=== PATIENT | female | born 1945 | race Two or more races ===

== ENCOUNTER → 2020-11-02 10:54 | Outpatient (BNVA) | payer MEDICARE, OTHER, SELFPAY | PROVIDERS: PCP Nurse Practitioner Family; Referring Provider Nurse Practitioner Family; Visit Provider Surgery | DX: R10.9 Unspecified abdominal pain (principal) | CPT/HCPCS: 99202 ==

== ENCOUNTER → 2021-04-11 10:18 | Outpatient (BNVA) | payer MEDICARE, OTHER, SELFPAY | PROVIDERS: PCP Nurse Practitioner Family; Visit Provider Internal Medicine | DX: M96.1 Postlaminectomy syndrome, not elsewhere classified (principal) | CPT/HCPCS: 99202 ==

== ENCOUNTER 2022-10-13 09:00 | Outpatient (AMB) | payer MEDICARE, OTHER, SELFPAY ==
--- NOTE | 2022-10-13 09:29 | HO.SPINEOV ---
Intake Intake Visit Reasons: moderate spinal canal stenosis Intake Note: Ms. Sutherlnad is here today c/o neck pain and low back pain. MRI done @ [facility]. Wine And Spirits Clerk Required: No Allergies adhesive Allergy (Mild, Verified 04/11/21 10:37) Itching, hives cat dander Allergy (Mild, Verified 04/11/21 10:37) Anaphylaxis house dust mite Allergy (Mild, Verified 04/11/21 10:37) Anaphylaxis mold Allergy (Mild, Verified 04/11/21 10:37) Anaphylaxis pork derived (porcine) Allergy (Mild, Verified 04/11/21 10:37) Unknown gluten Adverse Reaction (Mild, Verified 04/11/21 10:37) Gastrointestinal Upset lactose Adverse Reaction (Mild, Verified 04/11/21 10:37) Gastrointestinal Upset Assessment & Plan Assessment & Plan (1) Neck pain: Code(s): M54.2 - Cervicalgia Plan Dear Dr Balderas, Thank you for referring Mrs Sutherland to our office today. She is 77-year-old woman who had a history of a previous cervical fusion at C5-6, previous lumbar fusion done at [facility] by who has had ongoing issues with neck pain and back pain since the surgeries. She thinks the surgeries were 5 or 6 years ago. She has been undergoing physical therapy. She has a history of diffuse arthritic conditions and often has flare ups. She does heating pads, high water bottles, etc.. She is here today to be evaluated for ongoing neck pain and back pain. She does not report any myelopathic symptoms. Her primary issues are pain related. PMH: History of previous ulcerative colitis, she had some precancerous cells so ended up having a colectomy with a J-pouch, history of diet-controlled diabetes, cataract surgery, Lyme disease, ex pristine bar disease, fibromyalgia, carpal tunnel, rotator cuff, right knee replacement Social hx: She does not smoke Medications: Albuterol, loratadine, lysine, vitamin D3, multivitamin, Vyvanse, Synthroid, vitamin-C Allergies: Aspirin, Advil, anything with steroids, glued in her lack does Physical exam: Wake alert oriented no acute distress, strength slightly reduced in the right arm diffusely but I am not sure if this is effort related, reflexes intact, gait is normal, no Bruno's Imaging review: Nothing to review today other than some old MRIs and CT scans but nothing within the last 3 years Impression: 77-year-old female with previous history of ACDF, previous lumbar fusion, presents today with neck pain and back pain. I have no imaging to review, there some outdated films but nothing recent. She had a report suggesting the could be adjacent segment disease on recent MRI but she did not bring the disc. There is no lumbar imaging to review. I told the patient we would get plain films on her today, that she should go get the more recent imaging of her cervical spine and I would order a new lumbar MRI spine and we will see her back in a month. Thank you for allowing us to care for your patient. The total time spent with this visit with this patient was 45 minutes reviewing history, physical exam, old cervical spine imaging review, and implementation of treatment plan or further diagnostic testing Boston Dumont MD,PhD [facility] Orders: Orders XR cervical spine 4V Today M54.2 - Cervicalgia XR lumbar spine 4V min Today M54.2 - Cervicalgia MR lumbar spine wo/w con Today M96.1 - Postlaminectomy syndrome, not elsewhere classified Coding Level of Care Code New Pt Level 4 (89779) Diagnoses Neck pain M54.2
== END 2022-10-13 09:41 | disposition home or self-care (01) ==
PROVIDERS: PCP Nurse Practitioner Family; Referring Provider Psychiatry & Neurology Neurology; Visit Provider Physician Assistant
DX: M54.2 Cervicalgia (principal)
CPT/HCPCS: 99204

== ENCOUNTER 2022-10-13 09:00 | Outpatient (REF) | payer MEDICARE, OTHER, SELFPAY ==
--- NOTE | ~2022-10-13 | XR_ITS ---
EXAMINATION: XR LUMBOSACRAL SPINE WITH OBLIQUES CLINICAL INFORMATION: Cervicalgia. COMPARISON: None available. TECHNIQUE: Four views of the lumbar spine including flexion and extension. FINDINGS: There has been posterior fixation at L4-L5 with an interbody device. Degenerative changes are noted at most levels, most marked at L2-L3. There is grade 1 anterolisthesis of L4 upon L5 which appears stable with flexion and extension. No acute fractures are seen. Vertebral body heights are well maintained. Vascular calcifications are present. XR/XR lumbar spine 4V min IMPRESSION: Postoperative changes L4-L5 with stable grade 1 anterolisthesis of L4 upon L5. Degenerative changes elsewhere.
--- NOTE | ~2022-10-13 | XR_ITS ---
EXAMINATION: XR CERVICAL SPINE CLINICAL INFORMATION: Cervicalgia. COMPARISON: None available. TECHNIQUE: Four views of the cervical spine including neutral, flexion and extension. The patient did not remove 4 earrings which overlie C1 and C2 degrading the imaging. FINDINGS: ACDF hardware is present at C5-C6. Degenerative changes are present at C6-C7 with disc space narrowing, endplate sclerosis and osteophyte formation. There is mild anterolisthesis of C3 upon C4 with about 2.5 mm of forward slippage of C3 upon C4 which reduces with extension. No fractures or bony destructive lesions are seen. Incidental note made of an accessory azygos fissure. The lung apices appear normal. No prevertebral soft tissue swelling or fractures are seen. XR/XR cervical spine 4V IMPRESSION: 1. Degenerative changes at C6-C7. 2. Mild anterolisthesis of C3 upon C4 which reduces with extension. 3. ACDF at C5-C6.
== END 2022-10-13 09:01 | disposition home or self-care (01) ==
LOC: HO.HOSX 09:00
PROVIDERS: PCP Nurse Practitioner Family; Visit Provider Physician Assistant
DX: M54.2 Cervicalgia (principal); M96.1 Postlaminectomy syndrome, not elsewhere classified
CPT/HCPCS: 72050; 72110; 99202

== ENCOUNTER 2022-11-21 11:46 | Outpatient (AMB) | payer MEDICARE, OTHER, SELFPAY ==
--- NOTE | 2022-11-21 12:47 | HO.SPINEOV ---
Intake Intake Visit Reasons: 1 month f/u Intake Note: Ms. Sutherland is here today for her 1mo f/u and discuss MRI results. Customer Care Representative Required: No Allergies adhesive Allergy (Mild, Verified 04/11/21 10:37) Itching, hives cat dander Allergy (Mild, Verified 04/11/21 10:37) Anaphylaxis house dust mite Allergy (Mild, Verified 04/11/21 10:37) Anaphylaxis mold Allergy (Mild, Verified 04/11/21 10:37) Anaphylaxis pork derived (porcine) Allergy (Mild, Verified 04/11/21 10:37) Unknown gluten Adverse Reaction (Mild, Verified 04/11/21 10:37) Gastrointestinal Upset lactose Adverse Reaction (Mild, Verified 04/11/21 10:37) Gastrointestinal Upset Assessment & Plan Assessment & Plan (1) Neck pain: Code(s): M54.2 - Cervicalgia Plan I saw Mrs Sutherland follow-up today. I previously saw her in the setting of previous fusion of her lumbar in her cervical spine with issues with pain in her neck and some numbness in her right arm as well as difficulty walking with cramping going down both legs with standing and walking. She had previous fusion at L4-5. I sent her for lumbar MRI. Unfortunately she does not have the disc for me to review. She did bring cervical spine MRI from August 2022 [facility]. 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 I think this would explain some of the intermittent numbness that goes down her right arm. She does not have any hand weakness and no myelopathic features on her exam. I think she is dealing with an early radiculopathy but it is not at the point of requiring surgery yet. With regard to her lumbar MRI, she is going to get a copy of the disc and bring it to our office. She has a history of previous L4-5 fusion and the report suggests that there is severe stenosis at L3-4 and possibly L2-3. Once I have a chance to look at it with Dr. Dumont, I will call her and discuss surgical options. Total amount of time spent in this visit was 20 minutes in discussion of symptoms, cervical spine imaging results and subsequent plan of care Boston Dumont MD,PhD [facility] Coding Level of Care Code Est Pt Level 3 (41228) Diagnoses Neck pain M54.2
== END 2022-11-21 14:27 | disposition home or self-care (01) ==
PROVIDERS: PCP Nurse Practitioner Family; Visit Provider Physician Assistant
DX: M54.2 Cervicalgia (principal)
CPT/HCPCS: 99213

== ENCOUNTER → 2022-11-21 11:46 | Outpatient (BNVA) | payer MEDICARE, OTHER, SELFPAY | PROVIDERS: PCP Nurse Practitioner Family; Visit Provider Physician Assistant | DX: M54.2 Cervicalgia (principal) | CPT/HCPCS: 99212 ==

== ENCOUNTER → 2024-09-12 10:31 | Outpatient (BNVA) | payer MEDICARE, OTHER, SELFPAY | PROVIDERS: PCP Nurse Practitioner Family; Visit Provider Physician Assistant ==

== ENCOUNTER 2024-09-26 09:09 | Outpatient (REF) | payer MEDICARE, OTHER, SELFPAY ==
--- NOTE | ~2024-09-26 | XR_ITS ---
CLINICAL HISTORY: M54.2 - Cervicalgia --- Additional Notes or Special Instructions: a p, lateral with flex ext views Cervical spine two views plus flexion-extension Comparison: 10/13/2022 Findings: No acute fracture or dislocation. Moderate degenerative change. C5-6 anterior fusion hardware. Very limited range of motion on flexion extension. Alignment is normal on neutral lateral film. Multilevel slight anterolisthesis on flexion. This is unchanged from previous study. Alignment is normal on extension as well. Impression: Multilevel slight anterolisthesis with flexion Findings are unchanged from prior study Degenerative change without acute abnormality This document has been electronically signed by: Ronni Chirinos MD on 09/27/2024 20:10:27
== END 2024-09-26 09:10 | disposition home or self-care (01) ==
LOC: HO.HOSX 09:09
PROVIDERS: PCP Nurse Practitioner Family; Visit Provider Physician Assistant
DX: M54.2 Cervicalgia (principal)
CPT/HCPCS: 72050; 99212

== ENCOUNTER 2024-09-26 09:09 | Outpatient (AMB) | payer MEDICARE, OTHER, SELFPAY ==
--- OUTSIDE RECORDS SUMMARY | 2024-09-26 09:29 | XMS_ITS | Clinical Summary ---
Author Organization [facility] Address [address] [id number] Care Team Providers Care Sand System Operator Name Role Phone Gregoria Landis MD Primary Care Provider [phone] Allergies Active Allergy Reactions Criticality Noted Date Comments Adhesive Rash 02/13/2017 acrylilated Aspirin GI bleeding,Unknown 03/21/2011 Bee Pollen Anaphylaxis High 10/13/2019 All stinging insects Cortisone Blood pressure, high 01/03/2024 Dog Dander Rash 01/03/2024 Gabapentin Diarrhea,Swelling High 11/02/2017 Gluten Protein Bleeding,Diarrhea High 01/03/2024 Hydrocortisone Blood pressure, high High 01/22/2020 Elevated blood pressure/ heart Ibuprofen GI bleeding 01/03/2024 Lactose Anaphylaxis,GI bleeding,Diarrhea High 01/03/2024 Nsaids (Non-Steroidal Anti-Inflammatory Drug) GI bleeding 02/13/2017 Pork Derived (Porcine) Blood pressure, high 01/2022 Medications Synthroid 112 mcg tablet Synthroid Only - No Generic Active Vyvanse 30 mg capsule SMARTSI Capsule(s) By Mouth Twice Daily Active cholecalciferol (VITAMIN D3) 2,000 unit capsule Vitamin D3 2000 UNIT Oral Capsule Refills: 0 Active Active LYSINE ORAL Take by mouth. Act brigid Active Problems Problem Noted Date Diagnosed Date Small bowel obstruction 01/03/2024 Pruritus ani 10/31/2012 Non-healing surgical wound 06/26/2012 Ulcerative colitis 01/18/2012 Social History Tobacco Use Types Packs/Day Years Used Date Smoking Tobacco: Former Passive Smoke Exposure: Never Smokeless Tobacco: Never Tobacco Cessation:Counseling Given: Not Answered Comments:: Comments Unknown Sex and Gender Information Value Date Recorded Sex Assigned at Not on file Legal Sex Female 6:29 AM EDT Gender Identity Not on file Sexual Orientation Not on file Last Filed Vital Signs Vital Sign Reading Time Taken Comments Blood Pressure 145/86 01/03/2024 9:45 AM EDT Pulse 76 01/03/2024 9:45 AM EDT Temperature 36.1 C (97 F) 01/03/2024 9:45 AM EDT Respiratory Rate 17 01/03/2024 9:45 AM EDT Oxygen Saturation 98% 01/03/2024 9:45 AM EDT Inhaled Oxygen Concentration - - Weight 77.6 kg (171 lb) 01/03/2024 9:45 AM EDT Height 175.3 cm (5' 9 ) 01/03/2024 9:45 AM EDT Body Mass Index 25.25 01/03/2024 9:45 AM EDT Plan of Treatment Health Maintenance Due Date Last Done Comments Hepatitis C Screening [address] Lung Cancer Screening (Baseline) 1997 Osteoporosis Screening 1997 Pneumococcal Vaccine: 50+ Years (3 of 3 - PCV20 or PCV21) 10/24/2019 10/23/2014, 04/02/2006, 02/09/2000 COVID-19 Vaccine ( season) 2023 04/18/2023, 01/18/2022, 11/18/2021, Additional history exists Alcohol/Substance Use Screening 04/02/2024 Depression Screening and Follow-Up 04/02/2024 Health Care Proxy Review 04/02/2024 Social Drivers of Health Annual Screening 04/02/2024 Influenza Vaccine (Season Ended) 2024 12/18/2022, 12/23/2021, 12/02/2020, Additional history exists DTaP,Tdap,and Td Vaccines (2 - Td or Tdap) 01/27/2026 01/28/2016, 03/25/2013 Zoster Vaccines Completed 09/02/2018, 06/01, 06/06/2007 RSV Vaccine (60+ years old and patients) Completed 01/29/2023 Hepatitis B Vaccines Aged Out No long er eligible based on patient's age to complete this topic Additional Health Concerns Infection Onset Date Last Indicated Multidrug resistant organisms ESBL 12/31/2016 12/31/2016 Insurance [facility] MEDICARE Care Teams Sand System Operator Relationship Specialty Start Date End Date Gregoria Landis MD [address] [place] [address] [id number] PCP - General 11/09/23
--- NOTE | 2024-09-26 09:32 | HO.SPINEOV ---
Intake Visit Reasons: neck pain/ right arm numbness Intake Note: Ms. Sutherland is here today c/o neck Pain and Right arm numbness she also is concerned about MRI. Detail Technician Required: No Allergies adhesive Allergy (Mild, Verified 09/26/24 09:33) Itching, hives cat dander Allergy (Mild, Verified 09/26/24 09:33) Anaphylaxis house dust mite Allergy (Mild, Verified 09/26/24 09:33) Anaphylaxis mold Allergy (Mild, Verified 09/26/24 09:33) Anaphylaxis pork derived (porcine) Allergy (Mild, Verified 09/26/24 09:33) Unknown gluten Adverse Reaction (Mild, Verified 09/26/24 09:33) Gastrointestinal Upset lactose Adverse Reaction (Mild, Verified 09/26/24 09:33) Gastrointestinal Upset Assessment & Plan Assessment & Plan (1) Neck pain: Code(s): M54.2 - Cervicalgia Category: Medical Plan Mrs Sutherland is here in follow-up today. We saw this patient few years back about her lumbar spine issues and some tingling she was having going down her right arm. She is following up today because she has had increased numbness of her whole arm since the time we last saw her. She has noticed gait imbalance as well as feelings of numbness shooting down her right arm when she flexes her neck down. She has also been hearing noises in her neck when she extends her head backwards. She had a previous ACDF by Dr. Martínez at C5-6. She had a known stenosis at C6-7, but was not all that symptomatic at the time. We were just following her. She comes in today because of these worsening symptoms and to be evaluated. Her exam shows that she is unsteady with tandem gait walking, she does have weakness of her right hand. I would rate this as 4/5. She describes some of this is being chronic secondary to an old wrist injury. Reflexes are 2+ and symmetric, no Bruno's sign, no clonus. She does have positive Lhermitte sign. It looks like her incision is well healed on the right side of her neck. I reviewed her cervical MRI which was done at 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 I would rate the stenosis at C4-5 as moderate, but severe at C6-7. There is no cord signal change seen. The report also suggests some kind of thickening of her peritonsillar region, recommend a follow up with an ENT. I sat down with the patient and reviewed her films, based on our last conversation a few years ago to now the numbness in her arm is getting worse and she does have a component of right hand weakness as well as gait instability. She does not have hyperreflexia, but she does have history of borderline diabetes so this could be affecting us knowing exactly what her reflexes might be. There is enough compression at C6-[address] Dumont will recommend anterior cervical fusion given the progression of symptoms, physical exam finding and the severity of the stenosis. We also need to consider the possibility that C4-5 may need to be done at some point but it does not seem to be symptomatic right now. I explained all this to the patient and will follow up with her once I have a chance to review everything with Dr. Dumont. I will obtain flexion-extension x-rays to evaluate the integrity of the C4-5 area. I told her to follow up with her PCP regarding the peritonsillar thickening and the recommendation for an ENT follow-up. Total amount of time spent in this visit was 20 minutes in discussion of symptoms, cervical MRI imaging results and subsequent plan of care Boston Dumont MD,PhD [facility] Orders: Orders XR cervical spine 4V Today M54.2 - Cervicalgia Coding Level of Care Code Est Pt Level 3 (74646) Diagnoses Neck pain M54.2
== END 2024-09-26 11:43 | disposition home or self-care (01) ==
LOC: HO.HNS 09:10
PROVIDERS: PCP Nurse Practitioner Family; Visit Provider Physician Assistant
DX: M54.2 Cervicalgia (principal)
CPT/HCPCS: 99213

== ENCOUNTER → 2024-09-26 10:27 | Outpatient (BNV) | payer MEDICARE, OTHER, SELFPAY | PROVIDERS: PCP Nurse Practitioner Family; Visit Provider Radiology Diagnostic Radiology | DX: M43.12 Spondylolisthesis, cervical region (principal) | CPT/HCPCS: 72050 ==

== ENCOUNTER 2024-11-10 08:48 | Outpatient (AMB) | payer MEDICARE, OTHER, SELFPAY ==
--- OUTSIDE RECORDS SUMMARY | 2024-11-10 09:11 | XMS_ITS | Encounter Summary ---
Author Organization [facility] Address [address] [place] [phone] Phone Care Team Providers Care Ice Cream Van Vendor Name Role Phone Marcos Johnson MD Primary Care Prov ider Lakshmi Louis DRYING ROOM ATTENDANT Primary Care Provider [phone] Lakshmi Louis DRYING ROOM ATTENDANT Primary Care Provider [phone] Unknown, Unknown Primary Care Provider Gregoria Sherman DO Primary Care Provider Encounter Details Date Type Department Care Team (Latest Contact Info) Description 04/11/2018 Transcribe Orders [facility] Laboratory [address] [address] Neyda Bryan, PA [address] [place] [address] Acute gastric ulcer without hemorrhage or perforation (Primary Dx) Social History Tobacco Use Types Packs/Day Years Used Date Smoking Tobacco: Former Cigarettes 1 970 - 1985 Smokeless Tobacco: Never Alcohol Use Standard Drinks/Week Comments No 0 (1 standard drink = 0.6 oz pur e alcohol) Comments Unknown Sex and Gender Information Value Date Recorded Sex Assigned at Female 03/29/2019 7:07 PM EST Legal Sex Female 7:00 PM EST Gender Identity Female 03/29/2019 7:07 PM EST Sexual Orientation Straight 03/29/2019 7: 07 PM EST documented as of this encounter Plan of Treatment Not on file documented as of this encounter Results * C-Reactive Protein (04/11/2018 10:03 AM EST) C REACTIVE PROTEIN 3.0 0.0 - 4.0 mg/L [facility] Blood 04/11/2018 10:0 3 AM EST 04/11/2018 10:08 AM EST Neyda CONN LAB BLOOD ORDERABLES Final Result Performing Organization Address [facility] Co de Phone Number [address] [address] * (ABNORMAL) CBC (04/11/2018 10:03 AM EST) WBC 6.36 3.40 - 11.20 K/uL [facility] RBC 5.27(H) 3.80 - 4.80 M/uL [facility] HGB 14.9 12.0 - 15.0 g/dL [facility] HCT 46.2(H) 36.0 - 46.0 % [facility] PLT 277 130 - 400 K/uL [facility] MCV 87.7 79.0 - 98.0 fL [facility] MCH 28.3 27.0 - 34.8 pg [facility] MCHC 32.3 31.5 - 36.0 g/dL [facility] RDW 14.5 10.8 - 14.6 % [facility] MPV 10.9 9.4 - 12.4 fl [facility] NRBC 0.00 0.00 /100 WBCs [facility] ABSOLUTE NRBC 0.00 0.00 K/uL [facility] Blood 04/11/2018 10:0 3 AM EST 04/11/2018 10:08 AM EST Neyda CONN LAB BLOOD ORDERABLES Final Result Performing Organization Address City/[facility]/ZIP Co de Phone Number [address] [phone] documented in this encounter Visit Diagnoses Diagnosis Acute gastric ulcer without hemorrhage or perforation- Primary Acute gastric ulcer without mention of hemorrhage, perforation, or obstruction documented in this encounter Additional Health Concerns Infection Onset Date Last Indicated Resolved Time CoV-Risk 01/28/2020 01/29/2020 02/11/2020 1:24 AM EST documented as of this encounter Care Teams Ice Cream Van Vendor Relationship Specialty Start Date End Date Marcos Johnson MD PCP - General 01/24/17 Lakshmi Louis DRYING ROOM ATTENDANT PCP - General Family Medicine 02/18/19 11/20/21 Lakshmi Louis DRYING ROOM ATTENDANT PCP - General Family Medicine 11/21/21 08/15/23 Unknown, Dylan, PCP - General 08/16/23 08/22/23 Gregoria Landis DO [address] [place] [id number] PCP - General Family Medicine 08/23/23 documented as of this encounter Additional Source Comments The information contained in this document represents components of the legal health record. It is not the complete legal health record.[facility]
--- OUTSIDE RECORDS SUMMARY | 2024-11-10 09:11 | XMS_ITS | Clinical Summary ---
Author Organization [facility] Address [address] [id number] Care Team Providers Care Chemistry Lab Instructor Name Role Phone Gregoria Landis MD Primary Care Provider Allergies Active Allergy Reactions Criticality Noted Date [...] of Health Annual Screening 04/02/2024 Influenza Vaccine (#1) 2024 3, 12/23/2021, 12/02/2020, Additional history exists DTaP,Tdap,and Td [...] Insurance [facility] MEDICARE Care Teams Chemistry Lab Instructor Relationship Specialty Start Date End Date Gregoria Landis MD [address] [place] [address] [phone] PCP - General 11/09/23
--- NOTE | 2024-11-10 09:34 | A.SPINEOV_ITS ---
Intake Visit Reasons: Re evaluate/back pain Intake Note: Ms. Sutherland is here today to be reassesed for necessity of new MRI Certified Real Estate Appraiser Required: No Allergies adhesive Allergy (Mild, Verified 09/26/24 09:33) Itching, hives cat dander Allergy (Mild, Verified 09/26/24 09:33) Anaphylaxis house dust mite Allergy (Mild, Verified 09/26/24 09:33) Anaphylaxis mold Allergy (Mild, Verified 09/26/24 09:33) Anaphylaxis pork derived (porcine) Allergy (Mild, Verified 09/26/24 09:33) Unknown gluten Adverse Reaction (Mild, Verified 09/26/24 09:33) Gastrointestinal Upset lactose Adverse Reaction (Mild, Verified 09/26/24 09:33) Gastrointestinal Upset Assessment & Plan Assessment & Plan (1) Post laminectomy syndrome: Comment: Both cervical and lumbar Code(s): M96.1 - Postlaminectomy syndrome, not elsewhere classified Category: Medical (2) Neck pain: Code(s): M54.2 - Cervicalgia Category: Medical Plan Mrs Sutherland is here in follow-up. She is a patient known to us for follow up of spinal issues including lumbar and cervical. She had previous C5-6 anterior cervical fusion with Dr. Martínez, as well as L4-[address] Martínez. She has had complaints of chronic low back pain that seemed more recently it has been flaring up. They bother her with standing and walking. More recently after a trip to the beach she has had pain radiating down her left leg into her posterolateral thigh in her anterior tibial region. She has also had issues with her left SI joint which has been treated with physical therapy, similarly with her back issues she has done copious amounts of physical therapy that ultimately just made things worse. This is in addition to the neck pain in the tingling down her right arm which we have evaluated her for before. That is seems to have abated a bit in his really not all as much bothersome as it was. Right now her back is the focus of her issues. She has taken anti- inflammatories and Tylenol without much help. She does not want to go into the realm of pain medications. She has had no recent injections, although she was in [place] many years ago and had injections which did help from time to time. On exam she is able to stand up and get out of chair on her own, independently walk down the hallway, strength reveals some mild weakness of her right hand but diffusely depressed reflexes, no Bruno's sign or clonus. The last time we saw her regarding her cervical spine she had what was listed as severe stenosis by the radiologist, but no cord signal change. I have no lumbar imaging to review and since that is the focus of her issue at this time I would like to get a lumbar MRI and evaluate. I can see her back after the MRIs completed. Total amount of time spent in this visit was 20 minutes in discussion of symptoms, previous cervical MRI review and ordering lumbar imaging and subsequent plan of care Boston Dumont MD,PhD [facility] Orders: Orders MR lumbar spine wo/w con Today M96.1 - Postlaminectomy syndrome, not elsewhere classified Coding Level of Care Code Est Pt Level 3 (35921) Diagnoses Post laminectomy syndrome M96.1 Neck pain M54.2
== END 2024-11-10 10:10 | disposition home or self-care (01) ==
LOC: HO.HNS 08:49
PROVIDERS: PCP Nurse Practitioner Family; Visit Provider Physician Assistant
DX: M96.1 Postlaminectomy syndrome, not elsewhere classified (principal); M54.2 Cervicalgia
CPT/HCPCS: 99213

== ENCOUNTER → 2024-11-10 08:48 | Outpatient (BNVA) | payer MEDICARE, OTHER, SELFPAY | PROVIDERS: PCP Nurse Practitioner Family; Visit Provider Physician Assistant | DX: M96.1 Postlaminectomy syndrome, not elsewhere classified (principal); M54.2 Cervicalgia | CPT/HCPCS: 99212 ==

== ENCOUNTER → 2024-11-19 08:49 | Outpatient (BNV) | payer MEDICARE, OTHER, SELFPAY | PROVIDERS: PCP Family Medicine; Visit Provider Radiology Diagnostic Radiology | DX: M48.062 Spinal stenosis, lumbar region with neurogenic claudication (principal) | CPT/HCPCS: 72158 ==

== ENCOUNTER 2024-11-19 08:50 | Outpatient (REF) | payer MEDICARE, OTHER, SELFPAY ==
--- NOTE | ~2024-11-19 | MR_ITS ---
EXAMINATION: MR LUMBAR SPINE WITHOUT AND WITH CONTRAST CLINICAL INFORMATION: Postoperative changes at L4-5 and grade 1 anterolisthesis. Post laminectomy syndrome. COMPARISON: Correlated to x-ray dated October 13, 2022. No recent exam. TECHNIQUE: MRI of the lumbar spine was obtained using routine sequences with and without contrast. Intravenous contrast: Gadolinium based (Gadavist) 7.5 mL. No reported immediate complications. FINDINGS: There is no sagittal T1 postcontrast fat-sat sequence. Last rib-bearing vertebra labeled T12. Paramagnetic field distortion secondary to metallic hardware in the posterior elements of L4-5 and the transpedicular screws, L4-5 bilaterally. There is mild hyperintense bone marrow STIR signal at L1 and superior endplate of L2. There is an intrinsic hyperintense T1 bone lesion at L1 vertebra with the likely trabeculation, intraosseous hemangioma. Multilevel marginal osteophyte formation and disc desiccation and endplate irregularities throughout the included axial skeleton. There is a grade 1 anterolisthesis L4-5. There is a grade 1 retrolisthesis L2-3 and likely L1-2 level. There is a rotoscoliosis of the thoracolumbar spine with a levoconvex curvature apex at L3-4 and a dextroconvex curvature apex at L1-2. There is multilevel Modic type II endplate changes T11-12, T12-L1. The conus medullaris and at superior endplate of L2 with normal signal. 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 The neural elements of the cauda equina demonstrated no grouping or clumping. There is no empty thecal sac sign. There is no gross abnormal enhancement within the neural elements of the thecal sac. There is no gross abnormal enhancement within the prevertebral compartment. T11-12: No herniated disc. No gross neuroforamina stenosis. T12-L1: No herniated disc. No gross neuroforamina stenosis. L1-2: Broad-based disc bulging. Facet joint and ligamentum flavum hypertrophy resulting in CSF effacement of the thecal sac central spinal canal stenosis likely compressing the neural elements. There is left neuroforamina stenosis compressing the left L1 nerve root. L2-3: Broad-based disc bulging. Facet joint and ligamentum flavum hypertrophy resulting in CSF effacement of the thecal sac central spinal canal stenosis likely compressing the neural elements. Bilateral neuroforamina stenosis on a degenerative basis encroaching the exiting nerve roots. L3-4: Broad-based disc bulging. Facet joint and ligamentum flavum hypertrophy resulting in CSF effacement of the thecal sac compressing the neural elements of the thecal sac and the exiting nerve roots pronounced on the right side. L4-5: Right hemilaminectomy. Status post intervertebral disc spacer placement. No central spinal canal stenosis. There is bilateral neuroforamina stenosis right greater than left likely encroaching the L4 exiting nerve roots. L5-S1: Broad-based disc bulging. Facet joint and ligamentum flavum hypertrophy. Reduced AP diameter of the thecal sac. Bilateral neuroforamina narrowing likely encroaching the exiting nerve roots of S1 and L5. There are bilateral, multifocal different sizes complex likely hemorrhagic component exophytic cystic lesions in both kidneys, the largest in the right kidney measures 2.8 cm and on the left kidney measures 1.5 cm. Soft tissue fullness left adrenal gland which measures 174 and 225 in the pre and post sequences. MR/MR lumbar spine wo/w con IMPRESSION: Multilevel central spinal canal stenosis on a multifactorial/degenerative basis encroaching likely compressing the neural elements of the thecal sac from L1-2 to L3-4. Scoliosis resulting in multilevel neuroforamina stenosis from L1-2 to L4-5 levels. No abnormal enhancement. No arachnoiditis. Multiple hemorrhagic cystic lesions, both kidneys. Electronically signed by: Reyes Brenner MD 11/19/2024 10:05 AM EDT
--- OUTSIDE RECORDS SUMMARY | 2024-11-19 09:32 | XMS_ITS | Encounter Summary ---
Author Organization [facility] Address [address] [facility] [address] [place] [phone] Phone Care Team Providers Care Cray Fishing Hand Name Role Phone Marcos Johnson MD Primary Care Prov ider Lakshmi Louis FOOD PROCESSOR Primary Care Provider [phone] Lakshmi Louis FOOD PROCESSOR Primary Care Provider [phone] Unknown, Unknown Primary Care Provider Gregoria Sherman DO Primary Care Provider [phone] Encounter Details Date Type Department Care Team (Latest Contact Info) Description 04/11/2018 Transcribe Orders [facility] Laboratory [address] [address] Neyda Bryan [place] [address] [place] [address] Acute gastric ulcer without hemorrhage or perforation (Primary Dx) Social History Tobacco Use Types Packs/Day Years Used Date Smoking Tobacco: Former Cigarettes 1 0 - 1984 Smokeless Tobacco: Never Alcohol Use Standard Drinks/Week [...] REACTIVE PROTEIN 3.0 0.0 - 4.0 mg/L [facility] Blood 04/11/2018 10:0 3 AM EST 04/11/2018 10:08 AM EST us Neyda CONN LAB BLOOD ORDERABLES Final Result Performing Organization Address City/[facility]/ZIP Co de Phone Number [address] [address] * (ABNORMAL) CBC (04/11/2018 10:03 AM EST) WBC 6.36 3.40 - 11.20 K/uL [facility] RBC 5.27(H) 3.80 - 4.80 M/uL [facility] HGB 14.9 12.0 - 15.0 g/dL [facility] HCT 46.2(H) 36.0 - 46.0 % [facility] PLT 277 130 - 400 K/uL [facility] MCV 87.7 79.0 - 98.0 fL [facility] MCH 28.3 27.0 - 34.8 pg [facility] MCHC 32.3 31.5 - 36.0 g/dL [facility] RDW 14.5 10.8 - 14.6 % [facility] MPV 10.9 9.4 - 12.4 [facility] NRBC 0.00 0.00 /100 WBCs [facility] ABSOLUTE NRBC 0.00 0.00 K/uL [facility] Blood 04/11/2018 10:0 3 AM EST 04/11/2018 10:08 AM EST us Neyda CONN LAB BLOOD ORDERABLES Final Result Performing Organization Address City/[facility]/ZIP Co de Phone Number [address] [address] documented in this encounter Visit Diagnoses Diagnosis Acute gastric ulcer without hemorrhage or perforation- Primary Acute gastric ulcer without mention of hemorrhage, perforation, or obstruction documented in this encounter Additional Health Concerns Infection Onset Date Last Indicated Resolved Time CoV-Risk 01/28/2020 01/29/2020 02/11/2020 1:24 AM EST documented as of this encounter Care Teams Cray Fishing Hand Relationship Specialty Start Date End Date Marcos Johnson MD [email or web address] PCP - General 01/24/17 Lakshmi Louis NP PCP - General Family Medicine 02/18/19 11/20/21 Lakshmi Louis NP PCP - General Family Medicine 11/21/21 08/15/23 Unknown, Unknown, PCP - General 08/16/23 08/22/23 Gregoria Landis DO [address] [place] [id number] PCP - General Family Medicine 08/23/23 documented as of this encounter Additional Source Comments The information contained in this document represents components of the legal health record. It is not the complete legal health record.[facility]
--- OUTSIDE RECORDS SUMMARY | 2024-11-19 09:32 | XMS_ITS | Clinical Summary ---
Author Organization [facility] Address [address] [phone] Care Team Providers Care Career Services Assistant Name Role Phone Gregoria Landis MD Primary Care Provider [phone] Allergies Active Allergy Reactions Criticality Noted Date [...] Multidrug resistant organisms ESBL 12/31/2016 12/31/2016 Insurance [facility] MEDICARE Care Teams Career Services Assistant Relationship Specialty Start Date End Date Gregoria Landis MD [address] [place] [address] [phone] PCP - General 11/09/23
== END 2024-11-19 08:51 | disposition home or self-care (01) ==
LOC: HO.MRI 08:50
PROVIDERS: PCP Family Medicine; Visit Provider Physician Assistant
DX: M96.1 Postlaminectomy syndrome, not elsewhere classified (principal)
CPT/HCPCS: 72158; A9585

== ENCOUNTER 2024-12-12 10:06 | Outpatient (AMB) | payer MEDICARE, OTHER, SELFPAY ==
--- NOTE | 2024-12-12 11:08 | A.SPINEOV_ITS ---
Intake Visit Reasons: MRI follow up Intake Note: Ms. Sutherland is here today to F/u on her MRI results. Hiv Prevention Specialist Required: No Allergies adhesive Allergy (Mild, Verified 09/26/24 09:33) Itching, hives cat dander Allergy (Mild, Verified 09/26/24 09:33) Anaphylaxis house dust mite Allergy (Mild, Verified 09/26/24 09:33) Anaphylaxis mold Allergy (Mild, Verified 09/26/24 09:33) Anaphylaxis pork derived (porcine) Allergy (Mild, Verified 09/26/24 09:33) Unknown gluten Adverse Reaction (Mild, Verified 09/26/24 09:33) Gastrointestinal Upset lactose Adverse Reaction (Mild, Verified 09/26/24 09:33) Gastrointestinal Upset Assessment & Plan Assessment & Plan (1) Back pain: Code(s): M54.9 - Dorsalgia, unspecified Category: Medical Plan MRs Sutherland came back in today to review her lumbar MRI. She has a history of an L4-[address] Hednerson in his had issues with her back creeping in the last few months all across her lower lumbar area, localizing right over the stab incisions as well as central radiating out toward her left SI joint. Nothing radiating down her legs with the exception of occasional tingling in her left calf. Her MRI at [place] shows extensive degenerative changes above her fusion. At L3-4 she has right lateral recess stenosis amongst other degenerative changes, L2-3 and L1-2 there also Modic endplate changes. Her x-rays show a slight scoliotic curvature. Her bone quality looks quite poor. I would like to try to keep her out of the operating room if possible. I am going to start her with some gentle conservative treatment including PT and I would like to evaluate her and see if she would be a good candidate for intrasept. I will see her back in a few months. Total amount of time spent in this visit was 20 minutes in discussion of symptoms, lumbar imaging results and subsequent plan of care Boston Dumont MD,PhD [facility] Orders: Orders PT Evaluation and Treatment Today M54.9 - Dorsalgia, unspecified Referrals Pain Management Referral M54.9 - Dorsalgia, unspecified Coding Level of Care Code Est Pt Level 3 (37010) Diagnoses Back pain M54.9
--- OUTSIDE RECORDS SUMMARY | 2024-12-12 11:27 | XMS_ITS | Clinical Summary ---
Author Organization [facility] Address [address] [id number] Care Team Providers Care Roof Assembler Name Role Phone Gregoria Landis MD Primary Care Provider [phone] Allergies Active Allergy Reactions Criticality Noted Date [...] PCV20 or PCV21) 10/24/2019 10/23/2014, 04/02/2006, 02/09/2000 Alcohol/Substance Use Screening 04/02/2024 Depression Screening and Follow-Up 04/02/2024 Health Care Proxy Review 04/02/2024 Social Drivers of Health Annual Screening 04/02/2024 COVID-19 Vaccine ( season) 2024 04/18/2023, 01/18/2022, 11/18/2021, Additional history exists Influenza Vaccine (#1) 2024 , 12/23/2021, 12/02/2020, Additional history exists DTaP,Tdap,and Td Vaccines (2 - Td or Tdap) 01/27/2026 01/28/2016, 03/25/2013 Zoster Vaccines Completed 09/02/2018, 06/01, 06/06/2007 RSV Vaccine (60+ years old and patients) Completed 01/29/2023 Hepatitis B Vaccines Aged Out No long er eligible based on patient's age to complete this topic Additional Health Concerns Infection Onset Date Last Indicated Multidrug resistant organisms ESBL 12/31/2016 12/31/2016 Insurance [facility] MEDICARE Care Teams Roof Assembler Relationship Specialty Start Date End Date Gregoria Landis MD [address] [place] [address] [id number] PCP - General 11/09/23
== END 2024-12-12 11:57 | disposition home or self-care (01) ==
LOC: HO.HNS 10:07
PROVIDERS: PCP Family Medicine; Visit Provider Physician Assistant
DX: M54.9 Dorsalgia, unspecified (principal)
CPT/HCPCS: 99213

== ENCOUNTER → 2024-12-12 10:06 | Outpatient (BNVA) | payer MEDICARE, OTHER, SELFPAY | PROVIDERS: PCP Family Medicine; Visit Provider Physician Assistant | DX: M54.50 Low back pain, unspecified (principal); Z98.1 Arthrodesis status | CPT/HCPCS: 99212 ==

== ENCOUNTER 2025-01-19 08:37 | Outpatient (AMB) | payer MEDICARE, OTHER, SELFPAY ==
--- OUTSIDE RECORDS SUMMARY | 2015-05-05 01:00 | XMS_ITS | Encounter Summary ---
Author Organization [facility] Address [address] [place] [phone] Phone Care Team Providers Care Concrete Analyst Name Role Phone Pcp, Unknown Primary Care Provider Unavailabl e Encounter Details Date Type Department Care Team (Late st Contact Info) Description 05/05/2015 Hospital Encounter [facility],Outside Imaging [address] [place] [address] System, Provider Not In, [facility] [address] [address] Social History Tobacco Use Types Packs/Day Years Used Date Smoking Tobacco: Former Cigarettes 1 0 - 1974 Smokeless Tobacco: Never Alcohol Use Standard Drinks/Week Comments No 0 (1 standard drink = 0.6 oz pur e alcohol) Education Answer Date Recorded Are you interested in more education? Not on padma e 07/29/2022 Are you concerned about learning? Not on file 07/29/2022 No 07/29/2022 No 07/29/2022 Food Answer Date Recorded Within the past 6 months we worried whether our food would run out before we got money to buy more. Never True 10/29/2023 Within the past 6 months the food we bought just didn't last and we didn't have enough money to get more. Never True Residential Stability Answer Date Recor ded What is your housing situation today? I have [place] 10/29/2023 How many times have you move d in the past 12 months? Zero (I did not move) 10/29/2023 Paying Utility Bills Answer Date Record ed Do you have trouble paying your heating or elect ricity bill? No 10/29/2023 Transportation Answer Date Recorded Has the lack of transportati on kept you from medical appointments or from getting medications? No 10/29/2023 Digital Access Answer Date Recorded Yes 10/29/2023 Yes 10/29/2023 Do you have reliable internet access at home? No 10/29/2023 Do you have a device (e.g., phone, tablet, computer) with a working camera? Yes 10/29/2023 Intimate Partner Violence Answer Date R ecorded Are you denied basic needs s uch as food, clothing, or medical care? No 05/27/2024 In the past 12 months have y ou been in a relationship with a person who hurts, threatens, or tries to control you? No 05/27/2024 Are you denied basic needs s uch as food, clothing, or medical care? No 05/27/2024 In the past 12 months have y ou been in a relationship with a person who hurts, threatens, or tries to control you? No 05/27/2024 Comments No Sex and Gender Information Value Date Recorded Sex Assigned at Female 03/29/2019 7:07 PM EST Legal Sex Female 7:00 PM EST Gender Identity Female 03/29/2019 7:07 PM EST Sexual Orientation Straight 03/29/2019 7: 07 PM EST Occupation Industry Job Start Date Job End Date Retired, worked in a correctional facility Not on file Not on file Not on file documented as of this encounter Functional Status * Calculated C-SSRS Risk Score (Lifetime/Recent) Answer Date of Assessment Author No Risk Indicated 10/29/2023 12:23 PM Cherrie Ewing RN * [place] Suicide Severity Rating Scale (Screener/Recent Self-Report) Question Answer Date of Assessment Author 1. Wish to be (Past 1 Month) No 10/29/2023 12:23 PM Cherrie Ewing RN 2. Non-Specific Active Suicidal Thoughts (Past 1 Month) No 10/29/2023 12:23 PM Cherrie Ewing RN 6. Suicidal Behavior (Lifetime) No 10/29/2023 12:23 PM EDT Cherrie Meadows RN documented as of this encounter Plan of Treatment Upcoming Encounters Date Type Department Care Team (Late st Contact Info) Description 02/11/2025 11:00 AM EST Office Visit [facility] [address] [place] [address] Unknown, Unknown, Antonio Rosenthal MD 10 [facility]. [facility] 2 [place] [address] [email or web address] documented as of this encounter Procedures Procedure Name Priority Date/Time Associated Diagnosis Comments XR LOWER EXTREMITY OUTSIDE (NO INTERPRETATION) Routine 05/05/2015 12:00 AM EST documented in this encounter Results * XR Lower Extremity Outside (No Interpretation) (05/05/2015 12:00 AM EST) Narrative SYSTEMGENERATED, DOCUMENTATION - 06/08/2017 10:27 AM EST This study is for PACS storage only and not for interpretation. us Provider Not In System PhD IMG OUTSIDE IMAGING W /OUT INTERPRETATION Final Result documented in this encounter Visit Diagnoses Not on filedocumented in this encounter Additional Health Concerns Infection Onset Date Last Indicated Resolved Time CoV-Risk 01/28/2020 01/29/2020 02/11/2020 1:24 AM EST documented as of this encounter Care Teams Concrete Analyst Relationship Specialty Start Date End Date Pcp, Unknown PCP - General 09/30/13 01/23/17 documented as of this encounter Additional Source Comments The information contained in this document represents components of the legal health record. It is not the complete legal health record.[facility]
--- OUTSIDE RECORDS SUMMARY | 2015-05-05 01:15 | XMS_ITS | Encounter Summary ---
Author Organization [facility] Address [address] [place] [address] Phone Care Team Providers Care Residential Tech Name Role Phone Pcp, Unknown Primary Care Provider Unavailabl e Encounter Details Date Type Department Care Team (Late st Contact Info) Description 05/05/2015 12:15 AM EST Hospital Encounter [facility],Outside Imaging [address] [place] [address] System, Provider Not In, [facility] [address] [address] Social History Tobacco Use Types Packs/Day Years Used Date Smoking Tobacco: Former Cigarettes 1 0 1974 Smokeless Tobacco: Never Alcohol Use Standard [...] 10/29/2023 12:23 PM Cherrie Ewing RN * [place] Suicide Severity Rating Scale (Screener/Recent Self-Report) Question [...] Description 02/11/2025 11:00 AM EST Office Visit [facility] [address] [place] [address] Unknown, Unknown, Antonio Rosenthal MD 10 [facility]. [facility] 2 [place] [address] [email or web address] documented as of this encounter Procedures Procedure Name Priority Date/Time Associated Diagnosis Comments XR UPPER EXTREMITY OUTSIDE (NO INTERPRETATION) Routine 05/05/2015 12:15 AM EST documented in this encounter Results * XR Upper Extremity Outside (No Interpretation) (05/05/2015 12:15 AM EST) Narrative SYSTEMGENERATED, DOCUMENTATION - 06/08/2017 10:28 AM EST This study is for PACS storage only and not for interpretation. us Provider Not In System PhD IMG OUTSIDE IMAGING W /OUT INTERPRETATION Final Result documented in this encounter Visit Diagnoses Not on filedocumented in this encounter Additional Health Concerns Infection Onset Date Last Indicated Resolved Time CoV-Risk 01/28/2020 01/29/2020 02/11/2020 1:24 AM EST documented as of this encounter Care Teams Residential Tech Relationship Specialty Start Date End Date Pcp, Unknown PCP - General 09/30/13 01/23/17 documented as of this encounter Additional Source Comments The information contained in this document represents components of the legal health record. It is not the complete legal health record.[facility]
--- OUTSIDE RECORDS SUMMARY | 2015-09-07 | XMS_ITS | Encounter Summary ---
Author Organization [facility] Address [address] [place] [address] Phone Care Team Providers Care Coremaker Machine Name Role Phone Pcp, Unknown Primary Care Provider Unavailabl e Encounter Details Date Type Department Care Team (Late st Contact Info) Description 09/07/2015 Hospital Encounter [facility],Outside Imaging [address] [place] [address] System, Provider Not In, [facility] [address] [address] Social History Tobacco Use Types Packs/Day Years [...] 10/29/2023 12:23 PM Cherrie Ewing RN * [place] Suicide Severity Rating Scale (Screener/Recent Self-Report) Question [...] Description 02/11/2025 11:00 AM EST Office Visit [facility] [address] [place] [address] Unknown, Unknown, Antonio Rosenthal MD 10 [facility]. [address] [address] [email or web address] documented as of this encounter Procedures Procedure Name Priority Date/Time Associated Diagnosis Comments XR SPINE OUTSIDE (NO INTERPRETATION) Routine 09/07/2015 12:00 AM EDT documented in this encounter Results * XR SPINE OUTSIDE(NO INTERPRETATION) (09/07/2015 12:00 AM EDT) Narrative SYSTEMGENERATED, DOCUMENTATION - 06/08/2017 10:29 AM EST This study is for PACS storage only and not for interpretation. us Provider Not In System PhD IMG OUTSIDE IMAGING W /OUT INTERPRETATION Final Result documented in this encounter Visit Diagnoses Not on filedocumented in this encounter Additional Health Concerns Infection Onset Date Last Indicated Resolved Time CoV-Risk 01/28/2020 01/29/2020 02/11/2020 1:24 AM EST documented as of this encounter Care Teams Coremaker Machine Relationship Specialty Start Date End Date Pcp, Unknown PCP - General 09/30/13 01/23/17 documented as of this encounter Additional Source Comments The information contained in this document represents components of the legal health record. It is not the complete legal health record.[facility]
--- OUTSIDE RECORDS SUMMARY | 2015-09-07 00:15 | XMS_ITS | Encounter Summary ---
Author Organization [facility] Address [address] [place] [address] Phone Care Team Providers Care Assembler Leather Goods Name Role Phone Pcp, Unknown Primary Care Provider Unavailabl e Encounter Details Date Type Department Care Team (Late st Contact Info) Description 09/07/2015 12:15 AM EDT Hospital Encounter [facility],Outside Imaging [address] [place] [address] System, Provider Not In, [facility] [address] [address] Social History Tobacco Use Types Packs/Day Years Used Date Smoking Tobacco: Former Cigarettes 1974 Smokeless Tobacco: Never Alcohol Use Standard [...] 10/29/2023 12:23 PM Cherrie Ewing RN * [place] Suicide Severity Rating Scale (Screener/Recent Self-Report) Question [...] Description 02/11/2025 11:00 AM EST Office Visit [facility] [address] [place] [address] Unknown, Unknown, Antonio Rosenthal MD 10 [facility]. [facility] 2 [place] [address] [email or web address] documented as of this encounter Procedures Procedure Name Priority Date/Time Associated Diagnosis Comments XR SPINE OUTSIDE (NO INTERPRETATION) Routine 09/07/2015 12:15 AM EDT documented in this encounter Results * XR SPINE OUTSIDE(NO INTERPRETATION) (09/07/2015 12:15 AM EDT) Narrative SYSTEMGENERATED, DOCUMENTATION - 06/08/2017 10:30 AM EST This study is for PACS storage only and not for interpretation. us Provider Not In System PhD IMG OUTSIDE IMAGING W /OUT INTERPRETATION Final Result documented in this encounter Visit Diagnoses Not on filedocumented in this encounter Additional Health Concerns Infection Onset Date Last Indicated Resolved Time CoV-Risk 01/28/2020 01/29/2020 02/11/2020 1:24 AM EST documented as of this encounter Care Teams Assembler Leather Goods Relationship Specialty Start Date End Date Pcp, Unknown PCP - General 09/30/13 01/23/17 documented as of this encounter Additional Source Comments The information contained in this document represents components of the legal health record. It is not the complete legal health record.[facility]
--- OUTSIDE RECORDS SUMMARY | 2015-09-07 00:30 | XMS_ITS | Encounter Summary ---
Author Organization [facility] Address [address] [place] [address] Phone Care Team Providers Care Compensation Adjuster Name Role Phone Pcp, Unknown Primary Care Provider Unavailabl e Encounter Details Date Type Department Care Team (Late st Contact Info) Description 09/07/2015 12:30 AM EDT Hospital Encounter [facility],Outside Imaging [address] [place] [address] System, Provider Not In, [facility] [address] [address] Social History Tobacco Use Types Packs/Day Years [...] 10/29/2023 12:23 PM Cherrie Ewing RN * [place] Suicide Severity Rating Scale (Screener/Recent Self-Report) Question [...] Description 02/11/2025 11:00 AM EST Office Visit [facility] [address] [place] [address] Unknown, Unknown, Antonio Rosenthal MD 10 [facility]. [facility] 2 [place] [address] [email or web address] documented as of this encounter Procedures Procedure Name Priority Date/Time Associated Diagnosis Comments XR UPPER EXTREMITY OUTSIDE (NO INTERPRETATION) Routine 09/07/2015 12:30 AM EDT documented in this encounter Results * XR Upper Extremity Outside (No Interpretation) (09/07/2015 12:30 AM EDT) Narrative SYSTEMGENERATED, DOCUMENTATION - 06/08/2017 10:31 AM EST This study is for PACS storage only and not for interpretation. us Provider Not In System PhD IMG OUTSIDE IMAGING W /OUT INTERPRETATION Final Result documented in this encounter Visit Diagnoses Not on filedocumented in this encounter Additional Health Concerns Infection Onset Date Last Indicated Resolved Time CoV-Risk 01/28/2020 01/29/2020 02/11/2020 1:24 AM EST documented as of this encounter Care Teams Compensation Adjuster Relationship Specialty Start Date End Date Pcp, Unknown PCP - General 09/30/13 01/23/17 documented as of this encounter Additional Source Comments The information contained in this document represents components of the legal health record. It is not the complete legal health record.[facility]
--- NOTE | 2025-01-19 08:57 | MHC.OFFVIS ---
Vital Signs 01/19/25 09:00 Height 5 ft 8 in Weight 173 lb BMI 26.3 BP 130/78 Blood Pressure Location Lt brachial Position Sitting Respiration 16 Pulse 93 Pulse Source Pulse Oximeter Pulse Oximetry (%) 98 Oxygen Delivery Method Room Air Intake Visit Reasons: Dorsalgia It Data Architect Required: No Allergies adhesive Allergy (Mild, Verified 01/19/25 09:02) Itching, hives cat dander Allergy (Mild, Verified 01/19/25 09:02) Anaphylaxis house dust mite Allergy (Mild, Verified 01/19/25 09:02) Anaphylaxis mold Allergy (Mild, Verified 01/19/25 09:02) Anaphylaxis pork derived (porcine) Allergy (Mild, Verified 01/19/25 09:02) Unknown gluten Adverse Reaction (Mild, Verified 01/19/25 09:02) Gastrointestinal Upset lactose Adverse Reaction (Mild, Verified 01/19/25 09:02) Gastrointestinal Upset Medication List - Last Reconciled 01/19/25 by Shira Ray LPN acetylcysteine (NAC) 600 mg PO DAILY cholecalciferol (vitamin D3) 25 mcg PO DAILY geriatric aqcmfxal-rymx-ruos 1 tab PO DAILY levothyroxine (Synthroid) 112 mcg PO DAILY lisdexamfetamine (Vyvanse) 30 mg PO BID HPI HPI Dorsalgia: Details: History of Present Illness The patient is a 79-year-old female presenting with cervical and lumbar pain. She reports difficulty sitting and standing due to the pain, which is exacerbated by certain positions such as lying on her side. The pain sometimes radiates down her left leg when lying on her left side, and she experiences aching pain on her right side. The patient has a history of degenerative disc disease and has undergone previous spinal surgeries, including a cervical and lumbar fusion. She has been referred for pain management by her spine surgeon, Boston Forrest. The patient also reports a history of Lyme disease and was treated for parasites and bacterial infections following a horse fly bite. She has undergone IgG testing which confirmed the presence of parasites and bacterial infection, and she was treated with doxycycline. The patient has a history of osteoporosis, which was diagnosed after she sustained fractures from a fall. She has previously tried medication to strengthen her bones but experienced adverse effects due to her J-pouch. Additionally, the patient has a history of a rotator cuff tear in her left shoulder, which was not surgically treated due to previous complications with her right shoulder surgery. Pain Description - Onset: Pain is chronic and exacerbated by certain positions such as lying on the side. - Quality: Aching pain, sometimes radiating down the left leg. - Location: Primarily in the cervical and lumbar regions, with occasional right side pain. - Exacerbating factors: Standing and certain lying positions. - Relieving factors: Not explicitly discussed. - Interference: Difficulty with sitting and standing. Physical Exam - Appears afebrile. - Alert and oriented. - Mood and affect appropriate. - Follows and participates in conversation appropriately. - Respiratory effort is unlabored. Pain Management - Affect: Pain impacts daily activities such as sitting and standing. - Analgesia: Current pain management strategies include physical therapy; no specific medications discussed. - Adverse Effects: Previous adverse effects from osteoporosis medication due to J-pouch. - Activities of Daily Living: Pain interferes with mobility and daily activities. - Aberrant Drug Related Behaviors: None reported. [facility] Medical History (Updated 01/19/25 @ 09:52 by Flavio Laurent MD) Fusion of lumbar spine Raynaud disease Migraine DM type 2 (diabetes mellitus, type 2) Lyme disease Vadim-Hurley infection ADD (attention deficit disorder) Fibromyalgia Post laminectomy syndrome Hypothyroidism Ulcerative colitis Surgical History (Updated 04/11/21 @ 14:13 by Spencer Granados) S/P cervical spinal fusion History of ileostomy H/O colectomy History of colonoscopy History of tonsillectomy Family History (Updated 11/02/20 @ 11:12 by NIA Worley) Father Cancer of kidney Mother Basal cell carcinoma Social History (Updated 11/02/20 @ 11:12 by NIA Worley) Alcohol intake: never Patient Tobacco Use Status: Never used Tobacco Physical Exam Vital Signs: Last Vital Signs Pulse 93 01/19/25 09:00 Resp 16 01/19/25 09:00 BP 130/78 01/19/25 09:00 Pulse Ox 98 01/19/25 09:00 Oxygen Delivery Method Room Air 01/19/25 09:00 BMI result Body Mass Index 26.3 Assessment & Plan Assessment & Plan (1) Cervical spinal stenosis: Code(s): M48.02 - Spinal stenosis, cervical region Category: Medical (2) Post laminectomy syndrome: Comment: Both cervical and lumbar Code(s): M96.1 - Postlaminectomy syndrome, not elsewhere classified Category: Medical Plan Plan Patient was informed and verbally consented to the use of an ambient scribe for clinic note documentation during this visit. 1. Cervical Pain - Plan includes continuation of physical therapy to address cervical pain. 2. Lumbar Pain - Physical therapy is recommended to manage lumbar pain. - Consideration of facet injections or radiofrequency ablation if physical therapy is ineffective. - Not particularly interested in SCS, provided brochure for information. 3. Degenerative Disc Disease - Degenerative disc disease is being managed with physical therapy. 4. Lyme Disease - Lyme disease was previously treated with antibiotics. 5. Parasites And Bacterial Infection - Parasites and bacterial infection were treated with doxycycline. 6. Osteoporosis - Osteoporosis management is complicated by adverse reactions to medications and poor intake due to J-pouch. 7. Rotator Cuff Tear - Rotator cuff tear in the left shoulder was not surgically treated due to previous complications with right shoulder surgery. Discussion Notes During the visit, we discussed the management of cervical and lumbar pain, emphasizing the continuation of physical therapy as a primary intervention. An MRI of the cervical spine was ordered to further evaluate the condition. We also considered the potential use of facet injections or radiofrequency ablation if physical therapy does not yield sufficient improvement. The patient was informed about the limitations and potential benefits of these interventions. Patient Instructions - Continue with physical therapy as planned. - Schedule and complete the MRI of the cervical spine. - Follow up in three months to assess progress and discuss further treatment options if necessary. Orders: Orders MR cervical spine wo con 01/19/25 M48.02 - Spinal stenosis, cervical region Coding Level of Care Code New Pt Level 4 (28380) Diagnoses Cervical spinal stenosis M48.02 Post laminectomy syndrome M96.1
[2025-01-19 09:00] VITALS: BP 130/78; PULSE 93; RESP 16; O2SAT 98; BMI 26.3
--- OUTSIDE RECORDS SUMMARY | 2025-01-19 09:08 | XMS_ITS | Encounter Summary ---
Author Organization [facility] Address [address] [facility] [address] [place] [phone] Phone Care Team Providers Care Precision Assembly Inspector Name Role Phone Marcos Johnson MD Primary Care Prov ider Lakshmi Louis PUBLIC EVENTS FACILITIES RENTAL MANAGER Primary Care Provider [phone] Lakshmi Louis PUBLIC EVENTS FACILITIES RENTAL MANAGER Primary Care Provider [phone] Unknown, Unknown Primary Care Provider Gregoria Sherman DO Primary Care Provider [phone] Encounter Details Date Type Department Care Team (Latest Contact Info) Description 04/11/2018 Transcribe Orders [facility] [address] [address] Neyda Bryan PA [address] [place] [address] Acute gastric ulcer without hemorrhage or perforation [...] Description 02/11/2025 11:00 AM EST Office Visit [facility] [address] [place] [address] Unknown, Unknown, Antonio Rosenthal MD [address] [address] [email or web address] documented as of this encounter Results * C-Reactive Protein (04/11/2018 10:03 AM EST) C REACTIVE PROTEIN 3.0 0.0 - 4.0 mg/L [facility] Blood 04/11/2018 10:0 3 AM EST 04/11/2018 10:08 AM EST us Neyda CONN LAB BLOOD ORDERABLES Final Result [facility] [address] [place] [address] * (ABNORMAL) CBC (04/11/2018 10:03 AM EST) WBC 6.36 3.40 - 11.20 K/uL [facility] RBC 5.27(H) 3.80 - 4.80 M/uL [facility] HGB 14.9 12.0 - 15.0 g/dL [facility] HCT 46.2(H) 36.0 - 46.0 % [facility] PLT 277 130 - 400 K/uL [facility] MCV 87.7 79.0 - 98.0 fL [facility] MCH 28.3 27.0 - 34.8 pg [facility] MCHC 32.3 31.5 - 36.0 g/dL [facility] RDW 14.5 10.8 - 14.6 % [facility] MPV 10.9 9.4 - 12.4 fl [facility] NRBC 0.00 0.00 /100 WBCs [facility] ABSOLUTE NRBC 0.00 0.00 K/uL [facility] Blood 04/11/2018 10:0 3 AM EST 04/11/2018 10:08 AM EST us Neyda CONN LAB BLOOD ORDERABLES Final Result [facility] [address] [place] [address] documented in this encounter Visit Diagnoses Diagnosis Acute gastric ulcer without hemorrhage or perforation- Primary Acute gastric ulcer without mention of hemorrhage, perforation, or obstruction documented in this encounter Additional Health Concerns Infection Onset Date Last Indicated Resolved Time CoV-Risk 01/28/2020 01/29/2020 02/11/2020 1:24 AM EST documented as of this encounter Care Teams Precision Assembly Inspector Relationship Specialty Start Date End Date Marcos Johnson MD PCP - General 01/24/17 Lakshmi Louis PUBLIC EVENTS FACILITIES RENTAL MANAGER PCP - General Family Medicine 02/18/19 11/20/21 Lakshmi Louis PUBLIC EVENTS FACILITIES RENTAL MANAGER PCP - General Family Medicine 11/21/21 08/15/23 Unknown, Dylan, PCP - General 08/16/23 08/22/23 Gregoria Landis DO [address] [place] [id number] PCP - General Family Medicine 08/23/23 documented as of this encounter Additional Source Comments The information contained in this document represents components of the legal health record. It is not the complete legal health record.[facility]
--- OUTSIDE RECORDS SUMMARY | 2025-01-19 09:08 | XMS_ITS | Encounter Summary ---
Author Organization [facility] Address [address] [place] [address] [place] [phone] Phone Care Team Providers Care Language And Literature Division Chair Name Role Phone Marcos Johnson MD Primary Care Prov ider Lakshmi Louis TRANSIT PROOF MACHINE OPERATOR Primary Care Provider [phone] Lakshmi Louis TRANSIT PROOF MACHINE OPERATOR Primary Care Provider [phone] Unknown, Unknown Primary Care Provider Gregoria Sherman DO Primary Care Provider Encounter Details Date Type Department Care Team (Late st Contact Info) Description 03/28/2018 Procedure Pass [facility] Endoscopy Admitting Dept [facility]3] Department [address] [place] [id number] Social History Tobacco Use Types Packs/Day Years Used Date Smoking Tobacco: Former Cigarettes 1 970 - 1984 Smokeless Tobacco: Never Alcohol Use [...] Description 02/11/2025 11:00 AM EST Office Visit [facility] [address] [place] [address] Unknown, Unknown, Antonio Rosenthal MD [address] [address] [email or web address] documented as of this encounter Visit Diagnoses Not on filedocumented in this encounter Additional Health Concerns Infection Onset Date Last Indicated Resolved Time CoV-Risk 01/28/2020 01/29/2020 02/11/2020 1:24 AM EST documented as of this encounter Care Teams Language And Literature Division Chair Relationship Specialty Start Date End Date Marcos Johnson MD PCP - General 01/24/17 Lakshmi Louis TRANSIT PROOF MACHINE OPERATOR PCP - General Family Medicine 02/18/19 11/20/21 Lakshmi Louis TRANSIT PROOF MACHINE OPERATOR PCP - General Family Medicine 11/21/21 08/15/23 Unknown, Unknown, PCP - General 08/16/23 08/22/23 Gregoria Landis DO [address] [place] [address] PCP - General Family Medicine 08/23/23 documented as of this encounter Additional Source Comments The information contained in this document represents components of the legal health record. It is not the complete legal health record.[facility]
--- OUTSIDE RECORDS SUMMARY | 2025-01-19 09:08 | XMS_ITS | Encounter Summary ---
Author Organization [facility] Address [address] [place] [address] Phone Care Team Providers Care Micro Photographer Name Role Phone Lakshmi Louis ENTERPRISE ENGINEER Primary Care Provider [phone] Lakshmi Louis ENTERPRISE ENGINEER Primary Care Provider [phone] Unknown, Unknown Primary Care Provider Gregoria Sherman DO Primary Care Provider Reason for Referral * MRI/CAT Scan - Closed Specialty Diagnoses / Procedures Referred By Kitty garcia Referred To Contact Radiology Diagnoses Cyst of pancreas Malignant intraductal papillary mucinous neoplasm Ulcerative colitis with rectal bleeding, unspecified location Procedures MRI Abdomen MRI Abdomen Neyda Bryan PA Phone: tel: fax: Referral ID Status Reason Start Date Expiration Date Visits Re quested Visits Authorized [id number] Closed 02/18/2019 02/18/2020 1 1 Encounter Details Date Type Department Care Team ([facility] st Contact Info) Description 02/18/2019 Ancillary Orders Virtual Department 30 [place] [address] Neyda Bryan PA 10 [place] [address] Cyst of pancreas; Malignant intraductal papillary mucinous neoplasm; Ulcerative colitis with rectal bleeding, unspecified location Social History Tobacco Use Types Packs/Day Years [...] Description 02/11/2025 11:00 AM EST Office Visit [facility] 10 [place] [address] Unknown, Unknown, Antonio Rosenthal MD [address] [address] [email or web address] documented as of this encounter Results * MRI ABDOMEN WITH AND WITHOUT CONTRAST (03/10/2019 10:13 AM EST) Anatomical Region Laterality Modality Abdomen Magnetic Resonan ce 03/10/2019 12:1 6 PM EST Impressions 03/10/2019 2:00 PM EST 1. Compared with 10/01/2017 CT, no significant interval change in size of dominant pancreatic body/tail junction nonenhancing cystic lesion measuring a maximum diameter of 1.4 cm. Other tiny nonenhancing cysts in the pancreatic parenchyma associated with mildly dilated side branch ducts. Findings likely represent IPMN. 2. Numerous renal cysts including simple cysts and debris-filled cortical cysts. 3. Gallbladder fundus adenomyomatosis. 4. Fatty infiltration of the liver. POS [id number] Narrative 03/10/2019 2:00 PM EST EXAM: MRI ABDOMEN WITH AND WITHOUT CONTRAST HISTORY: * PANCREATIC CYST/PSEUDO CYST, FOLLOW UP PANCREATIC CYST COMPARISON: Renal ultrasound 02/26/2019. CT abdomen pelvis 10/01/2017. TECHNIQUE: Exam performed on a 1.5 Jeni high-field MRI scanner. Axial T1 in and out of phase, T2, extended TE T2, and T1 with fat suppression, coronal T2. Post gadolinium multi-phase axial T1 sequences with fat suppression. Standard MRCP with thin section 3-D MRCP and thick slab section images. IV contrast: 16 Dotarem. FINDINGS: Liver: Normal size and contour of the liver. The liver is diffusely decreased in signal on the out of phase sequence compared with in phase T1 sequence compatible with fatty infiltration. No suspicious enhancement within the liver. Spleen: Normal size of spleen. There is a 7 mm splenule adjacent to the inferior spleen. Normal signal and enhancement. Gallbladder/biliary: Normal gallbladder distention. No gallstones or wall thickening. Fluid signal foci at the gallbladder fundus characteristic of benign focal adenomyomatosis. No intrahepatic or extrahepatic biliary ductal dilatation. Distal common bile duct measures 3 mm. No choledocholithiasis. Pancreas: There are several mildly dilated side branch ducts. Main pancreatic duct is not dilated. Communicating with the main pancreatic duct at the head/neck junction there is a nonenhancing cystic lesion measuring 1.4 x 1.1 x 1.4 cm, similar measurements to the 10/01/2017 CT (measurements reported were 1.2 x 1.0 x 1.4 cm). There are several smaller subcentimeter T2 bright cystic foci throughout the pancreatic parenchyma, the largest measuring 4 mm. No solid enhancing pancreatic mass. Kidneys: Normal symmetric renal enhancement. No hydronephrosis. There are numerous cortical cysts, largest arising from the upper pole RIGHT kidney measuring 3.4 cm. Several of the cortical cysts are dark signal on T2 and hyperintense signal on T1, with no postcontrast enhancement, characteristic of proteinaceous or debris- filled cysts. There is multifocal renal parenchymal scarring. Adrenal glands: Stable mild adrenal gland thickening without a discrete nodule. Vasculature: Normal diameter and enhancement of the abdominal aorta. There are areas of atherosclerotic abdominal aortic wall irregularity. Normal enhancement of the celiac trunk and branches, superior mesenteric artery, inferior mesenteric artery and bilateral renal arteries. Normal enhancement of the portal veins, hepatic veins, splenic vein and superior mesenteric vein. Peritoneum/retroperitoneum: No adenopathy or ascites. Musculoskeletal: Degenerative endplate changes in the spine and posterior fusion hardware in the lower lumbar spine. Procedure Note Radha King MD - 03/10/2019 EXAM: MRI ABDOMEN WITH AND WITHOUT CONTRAST HISTORY: * PANCREATIC CYST/PSEUDO CYST, FOLLOW UP PANCREATIC CYST COMPARISON: Renal ultrasound 02/26/2019. CT abdomen pelvis 10/01/2017. TECHNIQUE: Exam performed on a 1.5 Jeni high-field MRI scanner. Axial T1in and out of phase, T2, extended TE T2, and T1 with fat suppression,coronal T2. Post gadolinium multi-phase axial T1 sequences with fatsuppression. Standard MRCP with thin section 3-D MRCP and thick slabsection images. IV contrast: 16 Dotarem. FINDINGS: Liver: Normal size and contour of the liver. The liver is diffuselydecreased in signal on the out of phase sequence compared with in phase [id number] compatible with fatty infiltration. No suspicious enhancementwithin the liver. Spleen: Normal size of spleen. There is a 7 mm splenule adjacent to theinferior spleen. Normal signal and enhancement. Gallbladder/biliary: Normal gallbladder distention. No gallstones or wallthickening. Fluid signal foci at the gallbladder fundus characteristic ofbenign focal adenomyomatosis. No intrahepatic or extrahepatic biliaryductal dilatation. Distal common bile duct measures 3 mm. Nocholedocholithiasis. Pancreas: There are several mildly dilated side branch ducts. Mainpancreatic duct is not dilated. Communicating with the main pancreaticduct at the head/neck junction there is a nonenhancing cystic lesionmeasuring 1.4 x 1.1 x 1.4 cm, similar measurements to the 10/01/2017 CT(measurements reported were 1.2 x 1.0 x 1.4 cm). There are several smallersubcentimeter T2 bright cystic foci throughout the pancreatic parenchyma,the largest measuring 4 mm. No solid enhancing pancreatic mass. Kidneys: Normal symmetric renal enhancement. No hydronephrosis. There arenumerous cortical cysts, largest arising from the upper pole RIGHT kidneymeasuring 3.4 cm. Several of the cortical cysts are dark signal on T2 andhyperintense signal on T1, with no postcontrast enhancement,characteristic of proteinaceous or debris- filled cysts. There ismultifocal renal parenchymal scarring. Adrenal glands: Stable mild adrenal gland thickening without a discretenodule. Vasculature: Normal diameter and enhancement of the abdominal aorta. Thereare areas of atherosclerotic abdominal aortic wall irregularity. Normalenhancement of the celiac trunk and branches, superior mesenteric artery,inferior mesenteric artery and bilateral renal arteries. Normalenhancement of the portal veins, hepatic veins, splenic vein and superiormesenteric vein. Peritoneum/retroperitoneum: No adenopathy or ascites. Musculoskeletal: Degenerative endplate changes in the spine and posteriorfusion hardware in the lower lumbar spine. IMPRESSION: 1. Compared with 10/01/2017 CT, no significant interval change in size ofdominant pancreatic body/tail junction nonenhancing cystic lesionmeasuring a maximum diameter of 1.4 cm. Other tiny nonenhancing cysts inthe pancreatic parenchyma associated with mildly dilated side branchducts. Findings likely represent IPMN. 2. Numerous renal cysts including simple cysts and debris-filled corticalcysts. 3. Gallbladder fundus adenomyomatosis. 4. Fatty infiltration of the liver. 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 Ulcerative colitis with rectal bleeding, unspecified location 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 Malignant intraductal papillary mucinous neoplasm Ulcerative colitis with rectal bleeding, unspecified location documented in this encounter Additional Health Concerns Infection Onset Date Last Indicated Resolved Time CoV-Risk 01/28/2020 01/29/2020 02/11/2020 1:24 AM EST documented as of this encounter Care Teams Micro Photographer Relationship Specialty Start Date End Date Lakshmi Louis NP PCP - General Family Medicine 02/18/19 11/20/21 Lakshmi Louis NP PCP - General Family Medicine 11/21/21 08/15/23 Unknown, Unknown, PCP - General 08/16/23 08/22/23 Gregoria Landis DO [address] [place] [address] PCP - General Family Medicine 08/23/23 documented as of this encounter Additional Source Comments The information contained in this document represents components of the legal health record. It is not the complete legal health record.[facility]
--- OUTSIDE RECORDS SUMMARY | 2025-01-19 09:09 | XMS_ITS | Encounter Summary ---
Author Organization [facility] Address [address] [facility] [address] [place] [address] Phone Care Team Providers Care Septic Tank Cleaner Name Role Phone Marcos Johnson MD Primary Care Prov ider Lakshmi Louis AMMONIA BOX OPERATOR Primary Care Provider [phone] Lakshmi Louis AMMONIA BOX OPERATOR Primary Care Provider [phone] Unknown, Unknown Primary Care Provider Gregoria Sherman DO Primary Care Provider Encounter Details Date Type Department Care Team (Late st Contact Info) Description 10/22/2017 Procedure Pass [facility] [address] [place] [address] Social History Tobacco Use Types Packs/Day Years Used Date Smoking Tobacco: Former Comments Unknown Sex and Gender Information Value [...] 02/11/2025 11:00 AM EST Office Visit [facility] 10 [place] [address] Unknown, Unknown, Antonio Rosenthal MD [address] [place] [address] documented as of this encounter Visit Diagnoses Not on filedocumented in this encounter Additional Health Concerns Infection Onset Date Last Indicated Resolved Time CoV-Risk 01/28/2020 01/29/2020 02/11/2020 1:24 AM EST documented as of this encounter Care Teams Septic Tank Cleaner Relationship Specialty Start Date End Date Marcos Johnson MD PCP - General 01/24/17 Lakshmi Louis AMMONIA BOX OPERATOR PCP - General Family Medicine 02/18/19 11/20/21 Lakshmi Louis NP PCP - General Family Medicine 11/21/21 08/15/23 Unknown, Unknown, PCP - General 08/16/23 08/22/23 Gregoria Landis DO [address] [place] [address] PCP - General Family Medicine 08/23/23 documented as of this encounter Additional Source Comments The information contained in this document represents components of the legal health record. It is not the complete legal health record.[facility]
--- OUTSIDE RECORDS SUMMARY | 2025-01-19 09:09 | XMS_ITS | Encounter Summary ---
Author Organization [facility] Address [address] [place] [address] [place] [address] Phone Care Team Providers Care Neuroscience Director Na Name Role Phone Lakshmi Louis WET INSPECTOR OPTICAL GLASS Primary Care Provider [phone] Lakshmi Louis WET INSPECTOR [employer]ICAL [employer]ASS Primary Care Provider [phone] Unknown, Unknown Primary Care Provider Gregoria Sherman DO Primary Care Provider Encounter Details Date Type Department Care Team (Latest Contact Info) Description 02/18/2019 Transcribe Orders [address] [place] [address] Neyda Bryan, PA 10 [place] [address] Ulcerative colitis with rectal bleeding, unspecified location (Primary Dx) Social History Tobacco Use Types [...] Encounters Date Type Department Care Team (Late Contact Info) Description 02/11/2025 11:00 AM EST Office Visit [facility] 10 [place] [address] Unknown, Unknown, Antonio Rosenthal MD [address] [address] documented as of this encounter Results * C-Reactive Protein (02/18/2019 12:03 PM EST) C REACTIVE PROTEIN 3.3 0.0 - 4.0 mg/L [facility] Blood 02/18/2019 12:0 3 PM EST 02/18/2019 12:09 PM EST us Neyda CONN LAB BLOOD ORDERABLES Final Result Performing Organization Address City/State/[facility] Co de Phone Number [address] [address] * Comprehensive metabolic panel (02/18/2019 12:03 PM EST) SODIUM 141 133 - 146 mmol/L [facility] POTASSIUM 4.0 3.3 - 5.1 mmol/L [facility] CHLORIDE 102 96 - 108 mmol/L [facility] CO2 27 21 - 35 mmol/L [facility] BUN 11 6 - 19 mg/dL [facility] CREATININE 0.90 0.5 - 1.5 mg/dL [facility] GLUCOSE 92 70 - 99 mg/dL [facility] ALBUMIN 3.9 3.9 - 4.8 g/dL [facility] TOTAL PROTEIN 7.2 6.5 - 8.0 g/dL [facility] CALCIUM 9.6 8.4 - 10.3 mg/dL [facility] ALKALINE PHOSPHATASE 81 39 - 117 U/L [facility] TOTAL BILIRUBIN 0.8 0.0 - 1.2 mg/dL [facility] AST 32 0 - 37 U/L [facility] ALT 29 0 - 40 U/L [facility] GLOBULIN 3.3 1 - 4.8 g/dL [facility] EGFR 64 >59 mL/min/1.7 3m2 [facility] Comment:If patient is black, multiply result by 1.159. Estimated glomerular filtration rate calculated using the CKD-EPI equation. ANION GAP 16 10 - 20 mmol/L [facility] Blood 02/18/2019 12:0 3 PM EST 02/18/2019 12:09 PM EST us Neyda CONN LAB BLOOD ORDERABLES Final Result [facility] [address] [place] [address] * (ABNORMAL) CBC and differential (02/18/2019 12:03 PM EST) WBC 6.91 3.40 - 11.20 K/uL [facility] RBC 4.89(H) 3.80 - 4.80 M/uL [facility] HGB 14.1 12.0 - 15.0 g/dL [facility] HCT 42.6 36.0 - 46.0 % [facility] PLT 265 130 - 400 K/uL [facility] MCV 87.1 79.0 - 98.0 fL [facility] MCH 28.8 27.0 - 34.8 pg [facility] MCHC 33.1 31.5 - 36.0 g/dL [facility] RDW 14.6 10.8 - 14.6 % [facility] MPV 10.5 9.4 - 12.4 fl [facility] NRBC 0.00 0.00 /100 WBCs [facility] ABSOLUTE NRBC 0.00 0.00 K/uL [facility] DIFF METHOD Auto [facility] NEUTS 50.7 45.30 - 77.70 % [facility] LYMPHS 38.9 12.30 - 39.70 % [facility] MONOS 6.4 4.10 - 12.80 % [facility] EOS 2.5 0 - 7.2 % [facility] BASOS 1.4 0 - 2.80 % [facility] Granulocytes, immature (%) 0.1 0.0 - 0.9 % [facility] ABSOLUTE NEUTS 3.50 1.40 - 7.70 K/uL [facility] ABSOLUTE LYMPHS 2.69 0.60 - 3.20 K/uL [facility] ABSOLUTE MONOS 0.44 0.11 - 0.59 K/uL [facility] ABSOLUTE EOS 0.17 0.01 - 0.50 K/uL [facility] ABSOLUTE BASOS 0.10(H) 0.00 - 0.08 K/uL [facility] Granulocytes, immature 0.01 0.00 - 0.05 K/uL [facility] Blood 02/18/2019 12:0 3 PM EST 02/18/2019 12:09 PM EST us Neyda CONN LAB BLOOD ORDERABLES Final Result [facility] [address] [place] [address] documented in this encounter Visit Diagnoses Diagnosis Ulcerative colitis with rectal bleeding, unspecified location- Primary documented in this encounter Additional Health Concerns Infection Onset Date Last Indicated Resolved Time CoV-Risk 01/28/2020 01/29/2020 02/11/2020 1:24 AM EST documented as of this encounter Care Teams Neuroscience Director Na Relationship Specialty Start Date End Date Lakshmi Louis NP PCP - General Family Medicine 02/18/19 11/20/21 Lakshmi Louis NP PCP - General Family Medicine 11/21/21 08/15/23 Unknown, Unknown, PCP - General 08/16/23 08/22/23 Gregoria Landis DO [address] [place] [address] [email or web address] PCP - General Family Medicine 08/23/23 documented as of this encounter Additional Source Comments The information contained in this document represents components of the legal health record. It is not the complete legal health record.[facility]
--- OUTSIDE RECORDS SUMMARY | 2025-01-19 09:09 | XMS_ITS | Encounter Summary ---
Author Organization [facility] Address [address] [place] [address] [place] [address] Phone Care Team Providers Care Wildlife Science Professor Name Role Phone Lakshmi Louis INSTRUMENTATION ENGINEERING TECHNICIAN Primary Care Provider [phone] Lakshmi Louis INSTRUMENTATION ENGINEERING TECHNICIAN Primary Care Provider [phone] Unknown, Unknown Primary Care Provider Gregoria Sherman DO Primary Care Provider Encounter Details Date Type Department Care Team (Late st Contact Info) Description 02/18/2019 Transcribe Orders Virtual Department 30 [place] [address] Neyda Bryan, PA [address] [place] [address] Cyst of pancreas Social History Tobacco Use Types Packs/Day Years [...] Description 02/11/2025 11:00 AM EST Office Visit [facility] 10 [place] [address] Unknown, Unknown, Antonio Rosenthal MD [address] [address] [email or web address] documented as of this encounter Visit Diagnoses Diagnosis 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 documented in this encounter Additional Health Concerns Infection Onset Date Last Indicated Resolved Time CoV-Risk 01/28/2020 01/29/2020 02/11/2020 1:24 AM EST documented as of this encounter Care Teams Wildlife Science Professor Relationship Specialty Start Date End Date Lakshmi Louis NP PCP - General Family Medicine 02/18/19 11/20/21 Lakshmi Louis NP PCP - General Family Medicine 11/21/21 08/15/23 Unknown, Unknown, PCP - General 08/16/23 08/22/23 Gregoria Landis DO [address] [place] [address] [email or web address] PCP - General Family Medicine 08/23/23 documented as of this encounter Additional Source Comments The information contained in this document represents components of the legal health record. It is not the complete legal health record.[facility]
--- OUTSIDE RECORDS SUMMARY | 2025-01-19 09:09 | XMS_ITS | Encounter Summary ---
Author Organization [facility] Address [address] [facility] [address] [place] [address] Phone Care Team Providers Care Mandolin Repairer Name Role Phone Lakshmi Louis HSE COORDINATOR Primary Care Provider [phone] Lakshmi Louis HSE COORDINATOR Primary Care Provider [phone] Unknown, Unknown Primary Care Provider Gregoria Sherman DO Primary Care Provider [phone] Encounter Details Date Type Department Care Team (Late st Contact Info) Description 02/18/2019 Procedure Pass [facility], [address] [address] Social History Tobacco Use Types Packs/Day Years [...] Description 02/11/2025 11:00 AM EST Office Visit [facility] [address] [place] [address] Unknown, Unknown, Antonio Rosenthal MD [address] [place] [address] [email or web address] documented as of this encounter Visit Diagnoses Not on filedocumented in this encounter Additional Health Concerns Infection Onset Date Last Indicated Resolved Time CoV-Risk 01/28/2020 01/29/2020 02/11/2020 1:24 AM EST documented as of this encounter Care Teams Mandolin Repairer Relationship Specialty Start Date End Date Laksmhi Louis HSE COORDINATOR PCP - General Family Medicine 02/18/19 11/20/21 Lakshmi Louis NP PCP - General Family Medicine 11/21/21 08/15/23 Unknown, Unknown, PCP - General 08/16/23 08/22/23 Gregoria Landis DO [address] [place] [address] PCP - General Family Medicine 08/23/23 documented as of this encounter Additional Source Comments The information contained in this document represents components of the legal health record. It is not the complete legal health record.[facility]
--- OUTSIDE RECORDS SUMMARY | 2025-01-19 09:10 | XMS_ITS | Encounter Summary ---
Author Organization [facility] Address [address] [facility] [address] [place] [address] Phone Care Team Providers Care Excellence Coach Name Role Phone Marcos Johnson MD Primary Care Prov ider Lakshmi Louis CRATING AND MOVING ESTIMATOR Primary Care Provider [phone] Lakshmi Louis CRATING AND MOVING ESTIMATOR Primary Care Provider [phone] Unknown, Unknown Primary Care Provider Gregoria Sherman DO Primary Care Provider Encounter Details Date Type Department Care Team (Late st Contact Info) Description 10/22/2017 Procedure Pass [facility] [address] [place] [address] Social History Tobacco Use Types Packs/Day Years [...] Description 02/11/2025 11:00 AM EST Office Visit [facility] 10 [place] [address] Unknown, Unknown, Antonio Rosenthal MD [address] [place] [address] documented as of this encounter Visit Diagnoses Not on filedocumented in this encounter Additional Health Concerns Infection Onset Date Last Indicated Resolved Time CoV-Risk 01/28/2020 01/29/2020 02/11/2020 1:24 AM EST documented as of this encounter Care Teams Excellence Coach Relationship Specialty Start Date End Date Marcos Johnson MD PCP - General 01/24/17 Lakshmi Louis CRATING AND MOVING ESTIMATOR PCP - General Family Medicine 02/18/19 11/20/21 Lakshmi Louis NP PCP - General Family Medicine 11/21/21 08/15/23 Unknown, Unknown, PCP - General 08/16/23 08/22/23 Gregoria Landis DO [address] [place] [id number] PCP - General Family Medicine 08/23/23 documented as of this encounter Additional Source Comments The information contained in this document represents components of the legal health record. It is not the complete legal health record.[facility]
--- OUTSIDE RECORDS SUMMARY | 2025-01-19 09:11 | XMS_ITS | Encounter Summary ---
Author Organization [facility] Address [address] [facility] [address] [place] [phone] Phone Care Team Providers Care Insole Coverer Name Role Phone Marcos Johnson MD Primary Care Prov ider Lakshmi Louis QUALITY ASSOCIATE Primary Care Provider [phone] Lakshmi Louis QUALITY ASSOCIATE Primary Care Provider [phone] Unknown, Unknown Primary Care Provider Gregoria Sherman DO Primary Care Provider Encounter Details Date Type Department Care Team (Late st Contact Info) Description 10/22/2017 Procedure Pass [facility] Imaging [address] [place] [address] Social History Tobacco Use Types Packs/Day Years [...] Description 02/11/2025 11:00 AM EST Office Visit [facility] Gastroenterology Clinic 10 [place] [address] Unknown, Unknown, Antonio Rosenthal MD [address] [place] [phone] documented as of this encounter Visit Diagnoses Not on filedocumented in this encounter Additional Health Concerns Infection Onset Date Last Indicated Resolved Time CoV-Risk 01/28/2020 01/29/2020 02/11/2020 1:24 AM EST documented as of this encounter Care Teams Insole Coverer Relationship Specialty Start Date End Date Marcos Johnson MD PCP - General 01/24/17 Lakshmi Louis QUALITY ASSOCIATE PCP - General Family Medicine 02/18/19 11/20/21 Lakshmi Louis NP PCP - General Family Medicine 11/21/21 08/15/23 Unknown, Unknown, PCP - General 08/16/23 08/22/23 Gregoria Landis DO [address] [place] [address] PCP - General Family Medicine 08/23/23 documented as of this encounter Additional Source Comments The information contained in this document represents components of the legal health record. It is not the complete legal health record.[facility]
--- OUTSIDE RECORDS SUMMARY | 2025-01-19 09:11 | XMS_ITS | Encounter Summary ---
Author Organization [facility] Address [address] [place] [address] [place] [address] Phone Care Team Providers Care Lime Mixer Name Role Phone Marcos Johnson MD Primary Care Prov ider Lakshmi Louis CREDIT RISK MANAGEMENT DIRECTOR Primary Care Provider [phone] Lakshmi Louis CREDIT RISK MANAGEMENT DIRECTOR Primary Care Provider [phone] Unknown, Unknown Primary Care Provider Gregoria Sherman DO Primary Care Provider [phone] Encounter Details Date Type Department Care Team (Late st Contact Info) Description 02/12/2017 Ancillary Orders [facility] [address] [place] [address] [phone] Zara Franco MD [address] [place] [address] [facility] [place], [place] [phone] [email or web address] Social History Tobacco Use Types Packs/Day Years [...] Description 02/11/2025 11:00 AM EST Office Visit [facility] Gastroenterology Clinic 10 [place] [address] Unknown, Unknown, Antonio Rosenthal MD [address] [address] documented as of this encounter Visit Diagnoses Not on filedocumented in this encounter Additional Health Concerns Infection Onset Date Last Indicated Resolved Time CoV-Risk 01/28/2020 01/29/2020 02/11/2020 1:24 AM EST documented as of this encounter Care Teams Lime Mixer Relationship Specialty Start Date End Date Marcos Johnson MD PCP - General 01/24/17 Lakshmi Louis, CREDIT RISK MANAGEMENT DIRECTOR PCP - General Family Medicine 02/18/19 11/20/21 Lakshmi Louis CREDIT RISK MANAGEMENT DIRECTOR PCP - General Family Medicine 11/21/21 08/15/23 Unknown, Dylan, PCP - General 08/16/23 08/22/23 Gregoria Landis DO [address] [place] [address] PCP - General Family Medicine 08/23/23 documented as of this encounter Additional Source Comments The information contained in this document represents components of the legal health record. It is not the complete legal health record.[facility]
--- OUTSIDE RECORDS SUMMARY | 2025-01-19 09:11 | XMS_ITS | Encounter Summary ---
Author Organization [facility] Address [address] [place] [address] [place] [address] Phone Care Team Providers Care Animal Treatment Investigator Name Role Phone Marcos Johnson MD Primary Care Prov ider Lakshmi Louis AIRLINE TRANSPORT PILOT Primary Care Provider [phone] Lakshmi Louis AIRLINE TRANSPORT PILOT Primary Care Provider [phone] Unknown, Unknown Primary Care Provider Gregoria Sherman DO Primary Care Provider [phone] Encounter Details Date Type Department Care Team (Late st Contact Info) Description 02/12/2017 Ancillary Orders [address] [phone] Zara Franco MD [address] [place] [address] Orthopedics & Sports Medicine, [facility] [place], [place] [phone] [email or web address] Right shoulder pain, unspecified chronicity Social History Tobacco Use Types Packs/Day Years [...] Description 02/11/2025 11:00 AM EST Office Visit [facility] Gastroenterology Clinic 10 [place] [address] Unknown, Unknown, Antonio Rosenthal MD [address] [address] [email or web address] Pending Results Name Type Priority Associated Diagnoses Date /Time FL Guidance Needle Placement Non-Spine Imaging Routine Right shoulder pain, unspecified chronicity 02/13/2017 10:34 AM EST Scheduled Orders Name Type Priority Associated Diagnoses Orde r Schedule FL Guidance Needle Placement Non-Spine Imaging Routine Right Shoulder Pain, Unspecified Chronicity Expected: 02/12/2017, Expires: 02/12/2018 documented as of this encounter Visit Diagnoses Diagnosis Right shoulder pain, unspecified chronicity documented in this encounter Additional Health Concerns Infection Onset Date Last Indicated Resolved Time CoV-Risk 01/28/2020 01/29/2020 02/11/2020 1:24 AM EST documented as of this encounter Care Teams Animal Treatment Investigator Relationship Specialty Start Date End Date Marcos Johnson MD PCP - General 01/24/17 Lakshmi Louis AIRLINE TRANSPORT PILOT PCP - General Family Medicine 02/18/19 11/20/21 Lakshmi Louis AIRLINE TRANSPORT PILOT PCP - General Family Medicine 11/21/21 08/15/23 Unknown, Unknown, PCP - General 08/16/23 08/22/23 Gregoria Landis DO [address] [place] [address] PCP - General Family Medicine 08/23/23 documented as of this encounter Additional Source Comments The information contained in this document represents components of the legal health record. It is not the complete legal health record.[facility]
--- OUTSIDE RECORDS SUMMARY | 2025-01-19 09:11 | XMS_ITS | Encounter Summary ---
Author Organization [facility] Address [address] [place] [address] Phone Care Team Providers Care Funeral Attendant Name Role Phone Lakshmi Louis FINANCIAL FOUNDATIONS ASSOCIATE Primary Care Provider [phone] Lakshmi Louis FINANCIAL FOUNDATIONS ASSOCIATE Primary Care Provider [phone] Unknown, Unknown Primary Care Provider Gregoria Sherman DO Primary Care Provider [phone] Encounter Details Date Type Department Care Team (Latest Contact Info) Description 04/15/2019 Transcribe Orders Virtual Department 30 [place] [address] Bernardo Rodgers MD [address] [place] [address], [address] [address] [email or web address] Calculus of kidney (Primary Dx) Social History Tobacco Use Types Packs/Day Years Used Date Smoking Tobacco: Former Cigarettes 1 970 - 1984 Smokeless Tobacco: Never Alcohol Use Standard Drinks/Week Comments No 0 (1 standard drink = 0.6 oz pur e alcohol) Comments No Sex and Gender Information Value [...] Description 02/11/2025 11:00 AM EST Office Visit [facility] Gastro[facility] Clinic [address] [place] [address] Unknown, Unknown, Antonio Rosenthal MD [address] [facility] 2 [place] [address] [email or web address] documented as of this encounter Results * US Kidneys (04/30/2019 8:20 AM EST) Anatomical Region Laterality Modality Abdomen, Kidney Ultrasound 04/30/2019 8:29 AM EST Impressions 04/30/2019 8:34 AM EST 1. No evidence of obstructive uropathy. Findings consistent with small bilateral non-obstructing renal calculi. 2. Multiple bilateral cysts with benign characteristics within the kidneys. Some of these are hyperdense on CT consistent with proteinaceous cysts. POS [id number] Narrative 04/30/2019 8:34 AM EST HISTORY: Urinary tract calculi, flank pain, recent stone removal . COMPARISON: CT abdomen 03/29/2019 and ultrasound kidneys 02/26/2019. FINDINGS: Right kidney: The kidney remains normal in size measuring 11.5 cm in the long axis. Multiple anechoic cysts which enhances sound posteriorly are again demonstrated within the kidney with the largest an exophytic cyst in the upper pole measuring 3.6 cm in maximal diameter. No pelvocaliectasis. No evidence of solid masses. Tiny echogenic foci scattered within the kidney, the most conspicuous in the lower pole measuring 5 mm. At least some may be artifactual. No evidence of significant cortical thinning. Left kidney: The kidney remains normal in size measuring 10.5 cm in the long axis. Multiple small anechoic cysts which enhanced sound posteriorly are demonstrated within the kidney. No pelvocaliectasis. No evidence of solid masses. Tiny echogenic scattered foci within the kidney, largest measuring 5 mm. No evidence of significant cortical thinning. Procedure Note Rowdy Tong MD - 04/30/2019 HISTORY: Urinary tract calculi, flank pain, recent stone removal . COMPARISON: CT abdomen 03/29/2019 and ultrasound kidneys 02/26/2019. FINDINGS: Right kidney: The kidney remains normal in size measuring 11.5 cm in thelong axis. Multiple anechoic cysts which enhances sound posteriorly areagain demonstrated within the kidney with the largest an exophytic cyst inthe upper pole measuring 3.6 cm in maximal diameter. No pelvocaliectasis.No evidence of solid masses. Tiny echogenic foci scattered within thekidney, the most conspicuous in the lower pole measuring 5 mm. At leastsome may be artifactual. No evidence of significant cortical thinning. Left kidney: The kidney remains normal in size measuring 10.5 cm in thelong axis. Multiple small anechoic cysts which enhanced sound posteriorlyare demonstrated within the kidney. No pelvocaliectasis. No evidence ofsolid masses. Tiny echogenic scattered foci within the kidney, largestmeasuring 5 mm. No evidence of significant cortical thinning. IMPRESSION: 1. No evidence of obstructive uropathy. Findings consistent with smallbilateral non-obstructing renal calculi. 2. Multiple bilateral cysts with benign characteristics within thekidneys. Some of these are hyperdense on CT consistent with proteinaceouscysts. POS [id number] Bernardo Rodgers MD [facility] Final Result documented in this encounter Visit Diagnoses Diagnosis Calculus of kidney- Primary Calculus of kidney documented in this encounter Additional Health Concerns Infection Onset Date Last Indicated Resolved Time CoV-Risk 01/28/2020 01/29/2020 02/11/2020 1:24 AM EST documented as of this encounter Care Teams Funeral Attendant Relationship Specialty Start Date End Date Lakshmi Louis NP PCP - General Family Medicine 02/18/19 11/20/21 Lakshmi Louis NP PCP - General Family Medicine 11/21/21 08/15/23 Unknown, Unknown, PCP - General 08/16/23 08/22/23 Gregoria Landis DO [address] [place] [address] [email or web address] PCP - General Family Medicine 08/23/23 documented as of this encounter Additional Source Comments The information contained in this document represents components of the legal health record. It is not the complete legal health record.[facility]
--- OUTSIDE RECORDS SUMMARY | 2025-01-19 09:11 | XMS_ITS | Encounter Summary ---
Author Organization [facility] Address [address] [facility] [address] [place] [address] Phone Care Team Providers Care Heel Sorter Name Role Phone Marcos Johnson MD Primary Care Prov ider Lakshmi Louis CROP FARMERS Primary Care Provider [phone] Lakshmi Louis CROP FARMERS Primary Care Provider [phone] Unknown, Unknown Primary Care Provider Gregoria Sherman DO Primary Care Provider Encounter Details Date Type Department Care Team (Late st Contact Info) Description 10/22/2017 Procedure Pass [facility] [address] [place] [address] Social History Tobacco Use Types Packs/Day Years [...] Description 02/11/2025 11:00 AM EST Office Visit [facility] Gastroenterology Clinic 10 [place] [address] Unknown, Unknown, Antonio Rosenthal MD [address] [place] [address] documented as of this encounter Visit Diagnoses Not on filedocumented in this encounter Additional Health Concerns Infection Onset Date Last Indicated Resolved Time CoV-Risk 01/28/2020 01/29/2020 02/11/2020 1:24 AM EST documented as of this encounter Care Teams Heel Sorter Relationship Specialty Start Date End Date Marcos Johnson MD PCP - General 01/24/17 Lakshmi Louis CROP FARMERS PCP - General Family Medicine 02/18/19 11/20/21 Lakshmi Louis NP PCP - General Family Medicine 11/21/21 08/15/23 Unknown, Unknown, PCP - General 08/16/23 08/22/23 Gregoria Landis DO [address] [place] [address] PCP - General Family Medicine 08/23/23 documented as of this encounter Additional Source Comments The information contained in this document represents components of the legal health record. It is not the complete legal health record.[facility]
--- OUTSIDE RECORDS SUMMARY | 2025-01-19 09:12 | XMS_ITS | Encounter Summary ---
Author Organization [facility] Address [address] [place] [address] Phone Care Team Providers Care Wash House Worker Name Role Phone Marcos Johnson MD Primary Care Prov ider Lakshmi Louis CONTRACTING OFFICER Primary Care Provider [phone] Lakshmi Louis CONTRACTING OFFICER Primary Care Provider [phone] Unknown, Unknown Primary Care Provider Gregoria Sherman DO Primary Care Provider Encounter Details Date Type Department Care Team (Late st Contact Info) Description 02/04/2019 Procedure Pass [facility], [address] [place] [address] Social History Tobacco Use Types Packs/Day Years [...] Description 02/11/2025 11:00 AM EST Office Visit [facility] 10 [place] [address] Unknown, Unknown, Antonio Rosenthal MD [address] [address] [email or web address] documented as of this encounter Visit Diagnoses Not on filedocumented in this encounter Additional Health Concerns Infection Onset Date Last Indicated Resolved Time CoV-Risk 01/28/2020 01/29/2020 02/11/2020 1:24 AM EST documented as of this encounter Care Teams Wash House Worker Relationship Specialty Start Date End Date Marcos Johnson MD PCP - General 01/24/17 Lakshmi Louis CONTRACTING OFFICER PCP - General Family Medicine 02/18/19 11/20/21 Lakshmi Louis CONTRACTING OFFICER PCP - General Family Medicine 11/21/21 08/15/23 Unknown, Unknown, PCP - General 08/16/23 08/22/23 Gregoria Landis DO [address] [place] [address] PCP - General Family Medicine 08/23/23 documented as of this encounter Additional Source Comments The information contained in this document represents components of the legal health record. It is not the complete legal health record.[facility]
--- OUTSIDE RECORDS SUMMARY | 2025-01-19 09:12 | XMS_ITS | Encounter Summary ---
Author Organization [facility] Address [address] [facility] [address] [place] [address] Phone Care Team Providers Care Employment Case Manager Name Role Phone Marcos Johnson MD Primary Care Prov ider Lakshmi Louis INSPECTOR BARREL Primary Care Provider [phone] Lakshmi Louis INSPECTOR BARREL Primary Care Provider [phone] Unknown, Unknown Primary Care Provider Gregoria Sherman DO Primary Care Provider Encounter Details Date Type Department Care Team (Latest Contact Info) Description 11/22/2018 Transcribe Orders Virtual Department [address] [place] [address] Marlene Tello MD [address] [place] [address] [email or web address] Calculus of kidney (Primary Dx) Social History [...] [facility] Gastroenterology Clinic 10 [place] [address] Unknown, Unknown, Antonio Rosenthal MD 10 [facility]. [facility] 2 [place] [address] [email or web address] documented as of this encounter Results * XR ABDOMEN 1 VIEW (02/26/2019 9:43 AM EST) Anatomical Region Laterality Modality Abdomen Radiographic Perlita ging 02/26/2019 10:4 8 AM EST Impressions 02/26/2019 10:52 AM EST 1. Probable tiny chronic non-obstructing stone mid to upper right kidney. 2. Questionable 3-4 mm right proximal ureteral stone. POS [id number] Narrative 02/26/2019 10:52 AM EST Supine abdomen, [address] 10/01/2017 A 1 to 2 mm calcification is seen overlying the mid to upper pole of the right kidney in a similar location to the prior CT. There is a 3-4 mm rounded calcification lying adjacent to the tip of the right L3 transverse process. This had no correlate on the prior CT. Although it could be a phlebolith in the gonadal vein, a ureteral stone could have the same appearance. No other calcifications are seen along the course of either collecting system. There are chronically a few tiny pelvic phleboliths. Procedure Note Clinton Greenwood MD - 02/26/2019 Supine abdomen, [address] 10/01/2017 A 1 to 2 mm calcification is seen overlying the mid to upper pole of theright kidney in a similar location to the prior CT. There is a 3-4 mm rounded calcification lying adjacent to the tip of theright L3 transverse process. This had no correlate on the prior CT.Although it could be a phlebolith in the gonadal vein, a ureteral stonecould have the same appearance. No other calcifications are seen along the course of either collectingsystem. There are chronically a few tiny pelvic phleboliths. IMPRESSION: 1. Probable tiny chronic non-obstructing stone mid to upper rightkidney. 2. Questionable 3-4 mm right proximal ureteral stone. POS [id number] us Marlene Tello MD IMG XR ABDOMEN Final Resu lt * US Kidneys (02/26/2019 9:42 AM EST) Anatomical Region Laterality Modality Abdomen, Kidney Ultrasound 02/26/2019 10:2 3 AM EST Impressions 02/26/2019 10:32 AM EST 1. Bilateral renal cysts, essentially unchanged from prior studies. 2. Bilateral nonobstructing renal stones measuring up to 0.3 cm. POS - [id number] Narrative 02/26/2019 10:32 AM EST EXAM: US KIDNEYS ULTRASOUND KIDNEYS HISTORY: CALCULUS OF KIDNEY COMPARISON: Abdomen/pelvis CT on October 01, 2017 FINDINGS: RIGHT KIDNEY: The right kidney is within normal limits for size and measures 12.0 cm in sagittal dimension. Parenchyma is within normal limits. Cortical thickness and echogenicity are within normal limits. No hydronephrosis. Multiple cysts, the largest in the upper pole measuring 4.4 cm. Allowing to bin operator dependent differences, the cysts are essentially unchanged from prior studies. Echogenic focus with posterior acoustic shadowing and twinkle artifact measures 0.3 cm. LEFT KIDNEY: The left kidney is within normal limits for size and measures 10.8 cm in sagittal dimension. Parenchyma is within normal limits. Cortical thickness and echogenicity are within normal limits. No hydronephrosis. Multiple cysts, the largest in the upper pole measuring 1.4 cm. Allowing to bin operator dependent differences, the cysts are essentially unchanged from prior studies. Echogenic focus with posterior acoustic shadowing and twinkle artifact measures 0.3 cm. Focal echogenic shadowing lesion within the cortex of the upper pole measures 0.6 cm and likely represents nonspecific cortical calcification. Procedure Note Guicho Berrios MD - 02/26/2019 EXAM: US KIDNEYS ULTRASOUND KIDNEYS HISTORY: CALCULUS OF KIDNEY COMPARISON: Abdomen/pelvis CT on October 01, 2017 FINDINGS: RIGHT KIDNEY: The right kidney is within normal limits for size andmeasures 12.0 cm in sagittal dimension. Parenchyma is within normallimits. Cortical thickness and echogenicity are within normal limits. Nohydronephrosis. Multiple cysts, the largest in the upper pole measuring4.4 cm. Allowing to bin operator dependent differences, the cysts areessentially unchanged from prior studies. Echogenic focus with posterioracoustic shadowing and twinkle artifact measures 0.3 cm. LEFT KIDNEY: The left kidney is within normal limits for size and slrsaell66.8 cm in sagittal dimension. Parenchyma is within normal limits.Cortical thickness and echogenicity are within normal limits. Nohydronephrosis. Multiple cysts, the largest in the upper pole measuring1.4 cm. Allowing to bin operator dependent differences, the cysts areessentially unchanged from prior studies. Echogenic focus with posterioracoustic shadowing and twinkle artifact measures 0.3 cm. Focal echogenicshadowing lesion within the cortex of the upper pole measures 0.6 cm andlikely represents nonspecific cortical calcification. IMPRESSION: 1. Bilateral renal cysts, essentially unchanged from prior studies. 2. Bilateral nonobstructing renal stones measuring up to 0.3 cm. POS - [id number] Marlene Tello MD [facility] Final Resu lt documented in this encounter Visit Diagnoses Diagnosis Calculus of kidney- Primary Calculus of kidney Calculus of kidney documented in this encounter Additional Health Concerns Infection Onset Date Last Indicated Resolved Time CoV-Risk 01/28/2020 01/29/2020 02/11/2020 1:24 AM EST documented as of this encounter Care Teams Employment Case Manager Relationship Specialty Start Date End Date Marcos Johnson MD PCP - General 01/24/17 Lakshmi Louis NP PCP - General Family Medicine 02/18/19 11/20/21 Lakshmi Louis, INSPECTOR BARREL PCP - General Family Medicine 11/21/21 08/15/23 Unknown, Unknown, PCP - General 08/16/23 08/22/23 Gregoria Landis DO [address] [place] [address] [email or web address] PCP - General Family Medicine 08/23/23 documented as of this encounter Additional Source Comments The information contained in this document represents components of the legal health record. It is not the complete legal health record.[facility]
--- OUTSIDE RECORDS SUMMARY | 2025-01-19 09:12 | XMS_ITS | Encounter Summary ---
Author Organization [facility] Address [address] [facility] [address] [place] [address] Phone Care Team Providers Care Overedge Sewer Name Role Phone Marcos Johnson MD Primary Care Prov ider Lakshmi Louis BRIDAL STYLIST SALES CONSULTANT Primary Care Provider [phone] Lakshmi Louis BRIDAL STYLIST SALES CONSULTANT Primary Care Provider [phone] Unknown, Unknown Primary Care Provider Gregoria Sherman DO Primary Care Provider [phone] Reason for Referral * MRI/CAT Scan - Closed Specialty Diagnoses / Procedures Referred By Kitty garcia Referred To Contact Radiology Diagnoses Memory loss Ataxia Procedures MRI Brain Babatunde Carvalho MD Phone: tel: fax: [email or web address] Referral ID Status Reason Start Date Expiration Date Visits Re quested Visits Authorized [id number] Closed 02/04/2019 02/04/2020 1 1 Encounter Details Date Type Department Care Team (Latest Contact Info) Description 02/04/2019 Transcribe Orders [facility] Department [address] [place] [address] Babatunde Carvalho MD [address] [place] [address], [address] [place] [address] [email or web address] Memory loss (Primary Dx); Ataxia Social History Tobacco Use Types Packs/Day Years Used Date Smoking Tobacco: Former Cigarettes 1 1984 Smokeless Tobacco: Never Alcohol Use Standard [...] Description 02/11/2025 11:00 AM EST Office Visit [facility] [address] [place] [address] Unknown, Unknown, Antonio Rosenthal MD [address] [place] [address] [email or web address] documented as of this encounter Results * MRI BRAIN WITHOUT CONTRAST (02/18/2019 1:20 PM EST) Anatomical Region Laterality Modality Head Magnetic Resonan ce 02/18/2019 1:42 PM EST Impressions 02/18/2019 1:47 PM EST Minimal progression of cortical atrophy which is not grossly out of proportion to patient age. Small stable non-specific white matter signal abnormalities without other significant interval change from 05/15/2015 apparent. POS - [id number] Narrative 02/18/2019 1:47 PM EST TECHNIQUE: Exam performed on a 1.5 Jnei high-field MRI scanner. Axial T1, T2, T2*, T2 FLAIR and diffusion-weighted imaging with ADC map, sagittal T1 and FLAIR sequences were obtained. FINDINGS: Comparison is made with prior study of 05/15/2015. There is no evidence of intracranial hemorrhage, acute ischemia, or mass. There are multiple small non-specific and overall stable foci of hyperintense T2 signal scattered throughout the periventricular white matter. There is slight progressive enlargement of the ventricular tree and cerebral cortical sulci consistent with grossly age-appropriate atrophy and no pathologic extra- axial fluid collections are noted to have arisen in the interim. No gross orbital lesion or significant paranasal sinus inflammatory changes are present. Normal flow-voids appear to be present in the major intracranial arteries at the base. Procedure Note Edwardo Deshpande MD - 02/18/2019 TECHNIQUE: Exam performed on a 1.5 Jeni high-field MRI scanner. AxialT1, T2, T2*, T2 FLAIR and diffusion-weighted imaging with ADC map,sagittal T1 and FLAIR sequences were obtained. FINDINGS: Comparison is made with prior study of 05/15/2015. There is no evidenceof intracranial hemorrhage, acute ischemia, or mass. There are multiplesmall non-specific and overall stable foci of hyperintense T2 signalscattered throughout the periventricular white matter. There is slightprogressive enlargement of the ventricular tree and cerebral corticalsulci consistent with grossly age- appropriate atrophy and no pathologicextra-axial fluid collections are noted to have arisen in the interim. Nogross orbital lesion or significant paranasal sinus inflammatory changesare present. Normal flow-voids appear to be present in the majorintracranial arteries at the base. IMPRESSION: Minimal progression of cortical atrophy which is not grossly out ofproportion to patient age. Small stable non-specific white matter signalabnormalities without other significant interval change from 05/15/2015apparent. POS - [id number] Babatunde Carvalho MD IMG MR HEAD/NECK Final Resul t documented in this encounter Visit Diagnoses Diagnosis Memory loss- Primary Ataxia Lack of coordination Memory loss Ataxia Lack of coordination documented in this encounter Additional Health Concerns Infection Onset Date Last Indicated Resolved Time CoV-Risk 01/28/2020 01/29/2020 02/11/2020 1:24 AM EST documented as of this encounter Care Teams Overedge Sewer Relationship Specialty Start Date End Date Marcos Johnson MD PCP - General 01/24/17 Lakshmi Louis BRIDAL STYLIST SALES CONSULTANT PCP - General Family Medicine 02/18/19 11/20/21 Lakshmi Louis BRIDAL STYLIST SALES CONSULTANT PCP - General Family Medicine 11/21/21 08/15/23 Unknown, Unknown, PCP - General 08/16/23 08/22/23 Gregoria Landis DO [address] [place] [address] [email or web address] PCP - General Family Medicine 08/23/23 documented as of this encounter Additional Source Comments The information contained in this document represents components of the legal health record. It is not the complete legal health record.[facility]
--- OUTSIDE RECORDS SUMMARY | 2025-01-19 09:12 | XMS_ITS | Encounter Summary ---
Author Organization [facility] Address [address] [facility] [address] [place] [address] Phone Care Team Providers Care Training And Development Manager Name Role Phone Marcos Johnson MD Primary Care Prov ider Lakshmi Louis TURRET LATHE MACHINIST Primary Care Provider [phone] Lakshmi Louis TURRET LATHE MACHINIST Primary Care Provider [phone] Unknown, Unknown Primary Care Provider Gregoria Sherman DO Primary Care Provider [phone] Reason for Referral * Physical Therapy (Routine) - Closed Specialty Diagnoses / Procedures Referred By Kitty garcia Referred To Contact Physical Therapy Diagnoses Encounter for rehabilitation John Martínez MD [address] [place] [address] [place] [address] Phone: tel: fax: [facility] [address] [place] [address] Phone: tel: Referral ID Status Reason Start Date Expiration Date Visits Re quested Visits Authorized [id number] Closed 01/10/2019 01/11/2020 99 99 Encounter Details Date Type Department Care Team (Latest Contact Info) Description 01/10/2019 Transcribe Orders [facility] [address] [place] [address] John Martínez MD [facility] [address] [address] [place] [address] Encounter for rehabilitation (Primary Dx) Social History Tobacco Use Types [...] Description 02/11/2025 11:00 AM EST Office Visit [facility] [address] [place] [address] Unknown, Unknown, Antonio Rosenthal MD [address] [address] documented as of this encounter Procedures Procedure Name Priority Date/Time Associated Diagnosis Comments AMB REFERRAL TO [facility] PH[facility] Routine 01/13/2019 2:19 PM EDT Encounter for rehabilitation documented in this encounter Results * Ambulatory referral to [facility] Physical Therapy (01/13/2019 2:19 PM EDT) John Martínez MD AMB [facility] RE[facility] Final Result documented in this encounter Visit Diagnoses Diagnosis Encounter for rehabilitation- Primary documented in this encounter Additional Health Concerns Infection Onset Date Last Indicated Resolved Time CoV-Risk 01/28/2020 01/29/2020 02/11/2020 1:24 AM EST documented as of this encounter Care Teams Training And Development Manager Relationship Specialty Start Date End Date Marcos Johnson MD PCP - General 01/24/17 Lakshmi Louis TURRET LATHE MACHINIST PCP - General Family Medicine 02/18/19 11/20/21 Lakshmi Louis, TURRET LATHE MACHINIST PCP - General Family Medicine 11/21/21 08/15/23 Unknown, Unknown, PCP - General 08/16/23 08/22/23 Gregoria Landis DO [address] [place] [address] [email or web address] PCP - General Family Medicine 08/23/23 documented as of this encounter Additional Source Comments The information contained in this document represents components of the legal health record. It is not the complete legal health record.[facility]
--- OUTSIDE RECORDS SUMMARY | 2025-01-19 09:13 | XMS_ITS | Encounter Summary ---
Author Organization [facility] Address [address] [facility] [address] [place] [address] Phone Care Team Providers Care Artist Model Name Role Phone Lakshmi Louis NP Primary Care Provider [phone] Unknown, Unknown Primary Care Provider Gregoria Sherman DO Primary Care Provider Encounter Details Date Type Department Care Team (Late st Contact Info) Description 04/06/2022 Procedure Pass [facility], [address] [address] Social History Tobacco Use Types Packs/Day Years [...] 02/11/2025 11:00 AM EST Office Visit [facility] [address] [place] [address] Unknown, Unknown, Antonio Rosenthal MD [address] [place] [address] documented as of this encounter Visit Diagnoses Not on filedocumented in this encounter Care Teams Artist Model Relationship Specialty Start Date End Date Lakshmi Louis NP PCP - General Family Medicine 11/21/21 08/15/23 Unknown, Unknown, PCP - General 08/16/23 08/22/23 Gregoria Landis DO [address] [place] [address] PCP - General Family Medicine 08/23/23 documented as of this encounter Additional Source Comments The information contained in this document represents components of the legal health record. It is not the complete legal health record.[facility]
--- OUTSIDE RECORDS SUMMARY | 2025-01-19 09:13 | XMS_ITS | Encounter Summary ---
Author Organization [facility] Address [address] [facility] [address] [place] [address] Phone Care Team Providers Care Disability Program Navigator Name Role Phone Marcso Johnson MD Primary Care Prov ider Lakshmi Louis ASSOCIATE PRODUCT INTEGRITY ENGINEER Primary Care Provider [phone] Lakshmi Louis ASSOCIATE PRODUCT INTEGRITY ENGINEER Primary Care Provider [phone] Unknown, Unknown Primary Care Provider Gregoria Sherman DO Primary Care Provider [phone] Encounter Details Date Type Department Care Team (Latest Contact Info) Description 01/31/2018 Transcribe Orders [facility] Laboratory [address] [id number] Rubén Pandey MD [address] [place] [address] [phone] [email or web address] Chronic ulcerative enterocolitis with complication (Primary Dx) Social History Tobacco Use Types [...] Description 02/11/2025 11:00 AM EST Office Visit [facility] 10 [place] [address] Unknown, Unknown, Antonio Rosenthal MD 10 [facility]. [address] [address] [email or web address] documented as of this encounter Results * Creatinine/eGFR (01/31/2018 8:39 AM EDT) CREATININE 0.90 0.5 - 1.5 mg/dL [facility] EGFR 65 >59 mL/min/1.7 3m2 [facility] Comment:If patient is black, multiply result by 1.159. Estimated glomerular filtration rate calculated using the CKD-EPI equation. Blood 01/31/2018 8:39 AM EDT 01/31/2018 8:42 AM EDT us Rubén Pandey MD LAB BLOOD ORDERABLES Final Re sult [address] [address] * BUN (01/31/2018 8:39 AM EDT) BUN 18 6 - 19 mg/dL [facility] Blood 01/31/2018 8:39 AM EDT 01/31/2018 8:42 AM EDT us Rubén Pandey MD LAB BLOOD ORDERABLES Final Re sult [address] [address] documented in this encounter Visit Diagnoses Diagnosis Chronic ulcerative enterocolitis with complication- Primary documented in this encounter Additional Health Concerns Infection Onset Date Last Indicated Resolved Time CoV-Risk 01/28/2020 01/29/2020 02/11/2020 1:24 AM EST documented as of this encounter Care Teams Disability Program Navigator Relationship Specialty Start Date End Date Marcos Johnson MD PCP - General 01/24/17 Lakshmi Louis, ASSOCIATE PRODUCT INTEGRITY ENGINEER PCP - General Family Medicine 02/18/19 11/20/21 Lakshmi Louis NP PCP - General Family Medicine 11/21/21 08/15/23 Unknown, Dylan, PCP - General 08/16/23 08/22/23 Gregoria Landis DO [address] [place] [address] PCP - General Family Medicine 08/23/23 documented as of this encounter Additional Source Comments The information contained in this document represents components of the legal health record. It is not the complete legal health record.[facility]
--- OUTSIDE RECORDS SUMMARY | 2025-01-19 09:13 | XMS_ITS | Encounter Summary ---
Author Organization [facility] Address [address] [place] [address] Phone Care Team Providers Care Grades 1 Thru 6 Home Teacher Name Role Phone Lakshmi Louis NP Primary Care Provider [phone] Unknown, Unknown Primary Care Provider Gregoria Sherman DO Primary Care Provider Encounter Details Date Type Department Care Team (Late st Contact Info) Description 04/20/2022 Transcribe Orders Virtual Department 30 [place] [address] Marlene Tello MD [address] [place] [address] [email or web address] Social History Tobacco Use Types Packs/Day Years [...] Visit [facility] 10 [place] [address] Unknown, Unknown, Antonio Rosenthal MD [address] [place] [address] [email or web address] documented as of this encounter Visit Diagnoses Not on filedocumented in this encounter Care Teams Grades 1 Thru 6 Home Teacher Relationship Specialty Start Date End Date Lakshmi Louis NP PCP - General Family Medicine 11/21/21 08/15/23 Unknown, Unknown, PCP - General 08/16/23 08/22/23 Gregoria Landis DO [address] [place] [address] [email or web address] PCP - General Family Medicine 08/23/23 documented as of this encounter Additional Source Comments The information contained in this document represents components of the legal health record. It is not the complete legal health record.[facility]
--- OUTSIDE RECORDS SUMMARY | 2025-01-19 09:13 | XMS_ITS | Encounter Summary ---
Author Organization [facility] Address [address] [place] [address] [place] [address] Phone Care Team Providers Care Manager Wellness Name Role Phone Marcos Johnson MD Primary Care Prov ider Lakshmi Louis CONTRACTING ANALYST Primary Care Provider [phone] Lakshmi Louis CONTRACTING ANALYST Primary Care Provider [phone] Unknown, Unknown Primary Care Provider Gregoria Sherman DO Primary Care Provider [phone] Encounter Details Date Type Department Care Team (Late st Contact Info) Description 02/01/2018 Ancillary Orders Virtual Department [address] [place] [address] Rubén Pandey MD [address] [place] [address] [phone] [email or web address] Intestinal malabsorption, unspecified type; Ulcerative colitis with complication, unspecified location Social History Tobacco Use Types [...] Description 02/11/2025 11:00 AM EST Office Visit [facility] 10 [place] [address] Unknown, Unknown, Antonio Rosenthal MD [address] [address] documented as of this encounter Visit Diagnoses Diagnosis Intestinal malabsorption, unspecified type Ulcerative colitis with complication, unspecified location documented in this encounter Additional Health Concerns Infection Onset Date Last Indicated Resolved Time CoV-Risk 01/28/2020 01/29/2020 02/11/2020 1:24 AM EST documented as of this encounter Care Teams Manager Wellness Relationship Specialty Start Date End Date Marcos Johnson MD PCP - General 01/24/17 Lakshmi Louis NP PCP - General Family Medicine 02/18/19 11/20/21 Lakshmi Louis NP PCP - General Family Medicine 11/21/21 08/15/23 Unknown, Unknown, PCP - General 08/16/23 08/22/23 Gregoria Landis DO [address] [place] [address] PCP - General Family Medicine 08/23/23 documented as of this encounter Additional Source Comments The information contained in this document represents components of the legal health record. It is not the complete legal health record.[facility]
--- OUTSIDE RECORDS SUMMARY | 2025-01-19 09:13 | XMS_ITS | Encounter Summary ---
Author Organization [facility] Address [address] [facility] [address] [place] [address] Phone Care Team Providers Care Cloud Systems Administrator Name Role Phone Lkashmi Louis RESIDENT SERVICES MANAGER Primary Care Provider [phone] Lakshmi Louis RESIDENT SERVICES MANAGER Primary Care Provider [phone] Unknown, Unknown Primary Care Provider Gregoria Sherman DO Primary Care Provider [phone] Encounter Details Date Type Department Care Team (Late Contact Info) Description 09/06/2021 Procedure Pass [facility] Admitting Dept Virtual Department [address] [place] [address] Social History Tobacco Use Types Packs/Day Years [...] Description 02/11/2025 11:00 AM EST Office Visit [facility] 10 [place] [address] Unknown, Unknown, Antonio Rosenthal MD [address] [place] [address] [email or web address] documented as of this encounter Visit Diagnoses Not on filedocumented in this encounter Care Teams Cloud Systems Administrator Relationship Specialty Start Date End Date Lakshmi Louis RESIDENT SERVICES MANAGER PCP - General Family Medicine 02/18/19 11/20/21 Lakshmi Louis RESIDENT SERVICES MANAGER PCP - General Family Medicine 11/21/21 08/15/23 Unknown, Unknown, PCP - General 08/16/23 08/22/23 Gregoria Landis DO [address] [place] [address] PCP - General Family Medicine 08/23/23 documented as of this encounter Additional Source Comments The information contained in this document represents components of the legal health record. It is not the complete legal health record.[facility]
--- OUTSIDE RECORDS SUMMARY | 2025-01-19 09:13 | XMS_ITS | Encounter Summary ---
Author Organization [facility] Address [address] [place] [address] [place] [address] Phone Care Team Providers Care Torch Operator Name Role Phone Lakshmi Louis CHARGE ENTRY SPECIALIST Primary Care Provider [phone] Lakshmi Louis CHARGE ENTRY SPECIALIST Primary Care Provider [phone] Unknown, Unknown Primary Care Provider Gregoria Sherman DO Primary Care Provider Encounter Details Date Type Department Care Team (Late st Contact Info) Description 02/18/2019 Transcribe Orders [address] [place] [address] Lakshmi Louis, CHARGE ENTRY SPECIALIST [address] [place] [address] Social History Tobacco Use Types Packs/Day Years [...] [facility] 10 [place] [address] Unknown, Unknown, Antonio Rosenthal MD [address] [address] [email or web address] documented as of this encounter Visit Diagnoses Not on filedocumented in this encounter Additional Health Concerns Infection Onset Date Last Indicated Resolved Time CoV-Risk 01/28/2020 01/29/2020 02/11/2020 1:24 AM EST documented as of this encounter Care Teams Torch Operator Relationship Specialty Start Date End Date Lakshmi Louis CHARGE ENTRY SPECIALIST PCP - General Family Medicine 02/18/19 11/20/21 Lakshmi Louis CHARGE ENTRY SPECIALIST PCP - General Family Medicine 11/21/21 08/15/23 Unknown, Unknown, PCP - General 08/16/23 08/22/23 Gregoria Landis DO [address] [place] [address] PCP - General Family Medicine 08/23/23 documented as of this encounter Additional Source Comments The information contained in this document represents components of the legal health record. It is not the complete legal health record.[facility]
--- OUTSIDE RECORDS SUMMARY | 2025-01-19 09:14 | XMS_ITS | Encounter Summary ---
Author Organization [facility] Address [address] [place] [address] [place] [address] Phone Care Team Providers Care Graphic Manager Name Role Phone Lakshmi Louis SUPERVISOR TELEVISION CHASSIS REPAIR Primary Care Provider [phone] Lakshmi Louis SUPERVISOR TELEVISION CHASSIS REPAIR Primary Care Provider [phone] Unknown, Unknown Primary Care Provider Gregoria Sherman DO Primary Care Provider Reason for Referral * MRI/CAT Scan - Closed Specialty Diagnoses / Procedures Referred By Kitty garcia Referred To Contact Radiology Diagnoses Radiculopathy, cervical region Procedures MRI Cervical Spine John Martínez MD [address] [place] [address] Dr MOISE [address] [place] [address] Phone: tel: fax: Referral ID Status Reason Start Date Expiration Date Visits Re quested Visits Authorized [id number] Closed 03/08/2020 03/08/2021 1 1 Encounter Details Date Type Department Care Team (Late st Contact Info) Description 03/08/2020 Ancillary Orders Virtual Department 30 [place] [address] John Martínez MD [address] [place] [address] Dr MOISE [address] [place] [address] Radiculopathy, cervical region Social History Tobacco Use Types Packs/Day Years [...] Description 02/11/2025 11:00 AM EST Office Visit [facility] 10 [place] [address] Unknown, Unknown, Antonio Rosenthal MD [address] [address] [email or web address] documented as of this encounter Results * MRI CERVICAL SPINE (NEURO) FOCUS WITHOUT CONTRAST (03/17/2020 8:58 AM EST) Anatomical Region Laterality Modality C-spine Magnetic Resonan ce 03/17/2020 9:06 AM EST Impressions 03/17/2020 9:14 AM EST Progressive spinal stenosis at C6-7 from progressive appearing disc ridge complex is noted on CT. Mild spinal stenosis at C4-5 from bony degenerative changes there as well is some hypertrophic facet changes on the left. Other spondylotic changes as above. Relief of spinal stenosis at C5-6 status-post discectomy and fusion. Multilevel facet arthropathy and other changes as described above and on CT. Narrative 03/17/2020 9:14 AM EST HISTORY: Neck pain. Spinal stenosis. Cervical fusion. Right radiculopathy. COMPARISON: CT November 05. MRI September 25, 2018. TECHNIQUE: Exam performed on a 1.5 Jeni high-field MRI scanner. Sagittal T1, T2 and STIR, axial T2* gradient echo and axial T2 sequences were obtained. FINDINGS: Some mild degenerative changes across the craniocervical junction and C1-2. No spinal stenosis, basilar invagination, or cerebellar tonsillar ectopia. Some mild mucosal thickening suggested in sphenoid sinus and left maxillary sinus. No fluid seen. C2-3: Facet degenerative changes again noted, more on the right. No significant disc abnormality. No canal or foraminal stenosis. C3-4: Mild disc bulging with slight protrusion configuration extending superiorly. Minimal canal impingement but no significant remodeling of the cord. No high- grade foraminal stenosis. Facet degenerative changes bilaterally. Since C4-5: Degenerative disc disease with disc ridge complex and focal central disc bulging. This causes effacement of the CSF centrally and mild flattening of the cord, slightly progressive appearing compared to prior MRI. Facet degenerative change, more on the left with mild to moderate left-sided foraminal narrowing. There is fusion across C5-6. No prominent foraminal narrowing or progressive spinal stenosis. C6-7: Degenerative disc disease with disc ridge complex causing considerable and progressive spinal stenosis. Moderate left-sided foraminal narrowing. C7-T1: Minor anterolisthesis related to facet arthropathy with some foraminal narrowing as result, more on the left. No significant central canal stenosis. T1-T2: Trace disc bulging and right-sided spurring. Minor facet degenerative change. No high-grade central canal stenosis. No prominent disc abnormality seen on sagittal sequences at T2-3 or the visualized portion of T3-4. No intrinsic cord signal abnormality or syrinx identified. No morphologic change of concern otherwise identified. No worrisome marrow signal change. Study is not tailored for evaluation of regional soft tissues but no soft tissue findings of clear concern are identified in the [id number]. Procedure Note Michele Flores MD - 03/17/2020 HISTORY: Neck pain. Spinal stenosis. Cervical fusion. Rightradiculopathy. COMPARISON: CT November 05. MRI September 25, 2018. TECHNIQUE: Exam performed on a 1.5 Jein high-field MRI scanner. SagittalT1, T2 and STIR, axial T2* gradient echo and axial T2 sequences wereobtained. FINDINGS: Some mild degenerative changes across the craniocervical junction andC1-2. No spinal stenosis, basilar invagination, or cerebellar tonsillarectopia. Some mild mucosal thickening suggested in sphenoid sinus and leftmaxillary sinus. No fluid seen. C2-3: Facet degenerative changes again noted, more on the right. Nosignificant disc abnormality. No canal or foraminal stenosis. C3-4: Mild disc bulging with slight protrusion configuration extendingsuperiorly. Minimal canal impingement but no significant remodeling of thecord. No high- grade foraminal stenosis. Facet degenerative changesbilaterally. Since C4-5: Degenerative disc disease with disc ridge complex and focal centraldisc bulging. This causes effacement of the CSF centrally and mildflattening of the cord, slightly progressive appearing compared to priorMRI. Facet degenerative change, more on the left with mild to moderateleft-sided foraminal narrowing. There is fusion across C5-6. No prominent foraminal narrowing orprogressive spinal stenosis. C6-7: Degenerative disc disease with disc ridge complex causingconsiderable and progressive spinal stenosis. Moderate left-sidedforaminal narrowing. C7-T1: Minor anterolisthesis related to facet arthropathy with someforaminal narrowing as result, more on the left. No significant centralcanal stenosis. T1-T2: Trace disc bulging and right-sided spurring. Minor facetdegenerative change. No high-grade central canal stenosis. No prominent disc abnormality seen on sagittal sequences at T2-3 or thevisualized portion of T3-4. No intrinsic cord signal abnormality or syrinx identified. No morphologicchange of concern otherwise identified. No worrisome marrow signal change. Study is not tailored for evaluation of regional soft tissues but no softtissue findings of clear concern are identified in the [id number]. IMPRESSION: Progressive spinal stenosis at C6-7 from progressive appearing disc ridgecomplex is noted on CT. Mild spinal stenosis at C4-5 from bonydegenerative changes there as well is some hypertrophic facet changes onthe left. Other spondylotic changes as above. Relief of spinal stenosis atC5-6 status-post discectomy and fusion. Multilevel facet arthropathy andother changes as described above and on CT. John Martínez MD IMG MR XSPECIALTY Final Result documented in this encounter Visit Diagnoses Diagnosis Radiculopathy, cervical region Brachial neuritis or radiculitis nos Radiculopathy, cervical region Brachial neuritis or radiculitis nos documented in this encounter Care Teams Graphic Manager Relationship Specialty Start Date End Date Lakshmi Louis NP PCP - General Family Medicine 02/18/19 11/20/21 Lakshmi Louis SUPERVISOR TELEVISION CHASSIS REPAIR PCP - General Family Medicine 11/21/21 08/15/23 Unknown, Unknown, PCP - General 08/16/23 08/22/23 Gregoria Landis DO [address] [place] [phone] [email or web address] PCP - General Family Medicine 08/23/23 documented as of this encounter Additional Source Comments The information contained in this document represents components of the legal health record. It is not the complete legal health record.[facility]
--- OUTSIDE RECORDS SUMMARY | 2025-01-19 09:14 | XMS_ITS | Encounter Summary ---
Author Organization [facility] Address [address] [place] [address] [place] [address] Phone Care Team Providers Care Temporary Staff Accountant Name Role Phone Lakshmi Louis NP Primary Care Provider [phone] Unknown, Unknown Primary Care Provider Gregoria Sherman DO Primary Care Provider Encounter Details Date Type Department Care Team (Late st Contact Info) Description 06/19/2022 Procedure Pass [facility] Admitting Dept Virtual Department [address] [place] [address] Social History Tobacco Use Types Packs/Day Years [...] [facility] 10 [place] [address] Unknown, Unknown, Antonio Rosenthal MD [address] [place] [address] documented as of this encounter Visit Diagnoses Not on filedocumented in this encounter Care Teams Temporary Staff Accountant Relationship Specialty Start Date End Date Lakshmi Louis NP PCP - General Family Medicine 11/21/21 08/15/23 Unknown, Unknown, PCP - General 08/16/23 08/22/23 Gregoria Landis DO [address] [place] [address] PCP - General Family Medicine 08/23/23 documented as of this encounter Additional Source Comments The information contained in this document represents components of the legal health record. It is not the complete legal health record.[facility]
--- OUTSIDE RECORDS SUMMARY | 2025-01-19 09:14 | XMS_ITS | Encounter Summary ---
Author Organization [facility] Address [address] [place] [address] Phone Care Team Providers Care Chief Operator Name Role Phone Lakshmi Louis NP Primary Care Provider [phone] Unknown, Unknown Primary Care Provider Gregoria Sherman DO Primary Care Provider Encounter Details Date Type Department Care Team (Latest Contact Info) Description 06/19/2022 Transcribe Orders Virtual Department 30 [place] [address] Lakshmi Louis, GEOSPATIAL EXTRACTOR ANALYSIS [address] [place] [address] Cyst of kidney, acquired (Primary Dx) Social History Tobacco Use Types [...] Description 02/11/2025 11:00 AM EST Office Visit [facility] 10 [place] [address] Unknown, Unknown, Antonio Rosenthal MD [address] [address] [email or web address] documented as of this encounter Results * US Kidneys (07/10/2022 8:53 AM EDT) Anatomical Region Laterality Modality Abdomen, Kidney Ultrasound 07/10/2022 1:12 PM EDT Impressions 07/10/2022 1:18 PM EDT 1. Multiple echogenic foci are scattered throughout the kidneys bilaterally which may be artifactual versus small nonobstructing calculi. CT could be considered for further evaluation as indicated clinically. 2. Bilateral simple appearing renal cysts Narrative 07/10/2022 1:18 PM EDT US KIDNEYS TECHNIQUE: Kidney Ultrasound. COMPARISON: MRCP 11/12/2021 and renal sonography 04/10/2019 FINDINGS: Right Kidney: Size: 12.6 cm Normal corticomedullary differentiation and cortical thickness. Redemonstration of multiple simple appearing renal cysts the largest of which measures up to 3.5 cm at the upper pole the right kidney. Multiple echogenic foci are scattered throughout the kidney which may be artifactual versus small nonobstructing calculi. No hydronephrosis. Left Kidney: Size: 11.1 cm Normal corticomedullary differentiation and cortical thickness. There is redemonstration of multiple simple appearing cysts including an adjacent 1.3 and 1.1 cm cysts at the upper. Multiple echogenic foci are scattered throughout the kidney which may be artifactual versus small nonobstructing calculi. No hydronephrosis. Bladder: The urinary bladder is completely decompressed precluding evaluation. Procedure Note Briana Slater MD - 07/10/2022 US KIDNEYS TECHNIQUE: Kidney Ultrasound. COMPARISON: MRCP 11/12/2021 and renal sonography 04/10/2019 FINDINGS: Right Kidney: Size: 12.6 cm Normal corticomedullary differentiation and cortical thickness.Redemonstration of multiple simple appearing renal cysts the largest ofwhich measures up to 3.5 cm at the upper pole the right kidney. Multipleechogenic foci are scattered throughout the kidney which may beartifactual versus small nonobstructing calculi. No hydronephrosis. Left Kidney: Size: 11.1 cm Normal corticomedullary differentiation and cortical thickness. There isredemonstration of multiple simple appearing cysts including an adjacent1.3 and 1.1 cm cysts at the upper. Multiple echogenic foci are scatteredthroughout the kidney which may be artifactual versus small nonobstructingcalculi. No hydronephrosis. Bladder: The urinary bladder is completely decompressed precludingevaluation. IMPRESSION: 1. Multiple echogenic foci are scattered throughout the kidneysbilaterally which may be artifactual versus small nonobstructing calculi.CT could be considered for further evaluation as indicated clinically. 2. Bilateral simple appearing renal cysts us Lakshmi Louis NP IMG US RENAL Final Result documented in this encounter Visit Diagnoses Diagnosis Cyst of kidney, acquired- Primary Acquired cyst of kidney Cyst of kidney, acquired Acquired cyst of kidney documented in this encounter Care Teams Chief Operator Relationship Specialty Start Date End Date Lakshmi Louis, PARISH PCP - General Family Medicine 11/21/21 08/15/23 Unknown, Unknown, PCP - General 08/16/23 08/22/23 Gregoria Landis DO [address] [place] [address] [email or web address] PCP - General Family Medicine 08/23/23 documented as of this encounter Additional Source Comments The information contained in this document represents components of the legal health record. It is not the complete legal health record.[facility]
--- OUTSIDE RECORDS SUMMARY | 2025-01-19 09:14 | XMS_ITS | Encounter Summary ---
Author Organization [facility] Address [address] [place] [address] Phone Care Team Providers Care Clerk Travel Reservations Name Role Phone Lakshmi Louis NP Primary Care Provider [phone] Unknown, Unknown Primary Care Provider Gregoria Sherman DO Primary Care Provider Encounter Details Date Type Department Care Team (Latest Contact Info) Description 06/09/2022 Transcribe Orders Virtual Department 30 [place] [address] Lakshmi Louis, OPTIMIZATION CONSULTANT [address] [place] [address] Cyst of kidney, acquired (Primary Dx) Social [...] Description 02/11/2025 11:00 AM EST Office Visit [facility] 10 [place] [address] Unknown, Unknown, Antonio Rosenthal MD [address] [place] [address] [email or web address] documented as of this encounter Visit Diagnoses Diagnosis Cyst of kidney, acquired- Primary Acquired cyst of kidney documented in this encounter Care Teams Clerk Travel Reservations Relationship Specialty Start Date End Date Lakshmi Louis NP PCP - General Family Medicine 11/21/21 08/15/23 Unknown, Unknown, PCP - General 08/16/23 08/22/23 Gregoria Landis DO [address] [place] [address] [email or web address] PCP - General Family Medicine 08/23/23 documented as of this encounter Additional Source Comments The information contained in this document represents components of the legal health record. It is not the complete legal health record.[facility]
--- OUTSIDE RECORDS SUMMARY | 2025-01-19 09:14 | XMS_ITS | Encounter Summary ---
Author Organization [facility] Address [address] [facility] [address] [place] [address] Phone Care Team Providers Care Nursing Professor Name Role Phone Lakshmi Louis SPORTS INSTRUCTOR Primary Care Provider [phone] Lakshmi Louis SPORTS INSTRUCTOR Primary Care Provider [phone] Unknown, Unknown Primary Care Provider Gregoria Sherman DO Primary Care Provider Encounter Details Date Type Department Care Team (Late st Contact Info) Description 10/13/2019 Procedure Pass [facility], Ct Scan - [address] [address] Social History Tobacco Use Types Packs/Day Years [...] Description 02/11/2025 11:00 AM EST Office Visit [facility] 10 [place] [address] Unknown, Unknown, Antonio Rosenthal MD [address] [place] [address] [email or web address] documented as of this encounter Visit Diagnoses Not on filedocumented in this encounter Additional Health Concerns Infection Onset Date Last Indicated Resolved Time CoV-Risk 01/28/2020 01/29/2020 02/11/2020 1:24 AM EST documented as of this encounter Care Teams Nursing Professor Relationship Specialty Start Date End Date Lakshmi Louis, SPORTS INSTRUCTOR PCP - General Family Medicine 02/18/19 11/20/21 Lakshmi Louis SPORTS INSTRUCTOR PCP - General Family Medicine 11/21/21 08/15/23 Unknown, Unknown, PCP - General 08/16/23 08/22/23 Gregoria Landis DO [address] [place] [address] PCP - General Family Medicine 08/23/23 documented as of this encounter Additional Source Comments The information contained in this document represents components of the legal health record. It is not the complete legal health record.[facility]
--- OUTSIDE RECORDS SUMMARY | 2025-01-19 09:14 | XMS_ITS | Encounter Summary ---
Author Organization [facility] Address [facility] [employer] [facility] [address] [place] [address] Phone Care Team Providers Care Promotions Representative Name Role Phone Lakshmi Louis BOTTOM FINISHER Primary Care Provider [phone] Lakshmi Louis BOTTOM FINISHER Primary Care Provider [phone] Unknown, Unknown Primary Care Provider Gregoria Sherman DO Primary Care Provider [phone] Encounter Details Date Type Department Care Team (Late st Contact Info) Description 03/08/2020 Procedure Pass [facility], [address] [address] Social History Tobacco Use Types Packs/Day Years [...] PM EST documented as of this encounter Last Filed Vital Signs Vital Sign Reading Time Taken Comments Blood Pressure - - Pulse - - Temperature - - Respiratory Rate - - Oxygen Saturation - - Inhaled Oxygen Concentration - - Weight 83.9 kg (185 lb) 03/11/2020 12:51 PM EST Height 172.7 cm (5' 8 ) 03/11/2020 12:51 PM EST Body Mass Index 28.13 03/11/2020 12:51 PM EST documented in this encounter Plan of Treatment Upcoming Encounters Date Type Department Care Team ([facility] st Contact Info) Description 02/11/2025 11:00 AM EST Office Visit [facility] 10 [place] [address] Unknown, Unknown, Antonio Rosenthal MD [address] [address] documented as of this encounter Visit Diagnoses Not on filedocumented in this encounter Care Teams Promotions Representative Relationship Specialty Start Date End Date Lakshmi Louis NP PCP - General Family Medicine 02/18/19 11/20/21 Lakshmi Louis NP PCP - General Family Medicine 11/21/21 08/15/23 Unknown, Unknown, PCP - General 08/16/23 08/22/23 Gregoria Landis DO [address] [place] [address] PCP - General Family Medicine 08/23/23 documented as of this encounter Additional Source Comments The information contained in this document represents components of the legal health record. It is not the complete legal health record.[facility]
--- OUTSIDE RECORDS SUMMARY | 2025-01-19 09:15 | XMS_ITS | Encounter Summary ---
Author Organization [facility] Address [address] [facility] [address] [place] [address] Phone Care Team Providers Care Junior Business Analyst Name Role Phone Lakshmi Louis CONCIERGE RECEPTIONIST Primary Care Provider [phone] Lakshmi Louis CONCIERGE RECEPTIONIST Primary Care Provider [phone] Unknown, Unknown Primary Care Provider Gregoria Sherman DO Primary Care Provider Encounter Details Date Type Department Care Team (Late st Contact Info) Description 11/17/2020 Procedure Pass [facility], [address] [address] Social History Tobacco Use Types Packs/Day Years [...] 02/11/2025 11:00 AM EST Office Visit [facility] [address] [place] [address] Unknown, Unknown, Antonio Rosenthal MD [address] [place] [address] [email or web address] documented as of this encounter Visit Diagnoses Not on filedocumented in this encounter Care Teams Junior Business Analyst Relationship Specialty Start Date End Date Lakshmi Louis CONCIERGE RECEPTIONIST PCP - General Family Medicine 02/18/19 11/20/21 Lakshmi Louis CONCIERGE RECEPTIONIST PCP - General Family Medicine 11/21/21 08/15/23 Unknown, Unknown, PCP - General 08/16/23 08/22/23 Gregoria Landis DO [address] [place] [id number] PCP - General Family Medicine 08/23/23 documented as of this encounter Additional Source Comments The information contained in this document represents components of the legal health record. It is not the complete legal health record.[facility]
--- OUTSIDE RECORDS SUMMARY | 2025-01-19 09:15 | XMS_ITS | Encounter Summary ---
Author Organization [facility] Address [address] [place] [address] Phone Care Team Providers Care Web User Experience Strategist Name Role Phone Lakshmi Louis WHEAT GROWER Primary Care Provider [phone] Lakshmi Louis WHEAT GROWER Primary Care Provider [phone] Unknown, Unknown Primary Care Provider Gregoria Sherman DO Primary Care Provider Reason for Referral * MRI/CAT Scan - Closed Specialty Diagnoses / Procedures Referred By Kitty garcia Referred To Contact Radiology Diagnoses Cyst of pancreas Procedures MRI Cholangiopancreatography (MRCP) MRI Abdomen Nyeda Bryan PA Phone: tel: fax: Referral ID Status Reason Start Date Expiration Date Visits Re quested Visits Authorized [id number] Closed 12/17/2020 12/17/2021 1 1 Encounter Details Date Type Department Care Team (Late st Contact Info) Description 12/24/2020 Ancillary Orders Virtual Department 30 [place] [address] Neyda Bryan PA 10 [place] [address] Cyst of pancreas Social History Tobacco Use [...] Description 02/11/2025 11:00 AM EST Office Visit [facility] 10 [place] [address] Unknown, Unknown, MD Fry, MD Antonio [address] [address] [email or web address] documented as of this encounter Results * MRI CHOLANGIOPANCREATOGRAPHY (MRCP) WITH AND WITHOUT CONTRAST (12/24/2020 6:52 PM EDT) Anatomical Region Laterality Modality Pancreas, Biliary Magnetic Reson ance 12/25/2020 11:5 8 AM EDT Impressions 12/25/2020 1:30 PM EDT 1.Mild increase in size the dominant pancreatic body cyst-1.6 cm and new 6 mm pancreatic head cyst. Findings consistent with side branch IPMNs. 2.Progressive hepatic steatosis. 3.Additional chronic findings as above. Narrative 12/25/2020 1:30 PM EDT COMPARISON: MRI abdomen 03/10/2019. CT abdomen pelvis 03/29/2019. TECHNIQUE: Exam performed on a 1.5 Jeni high-field MRI scanner. The following sequences were obtained after the oral administration of 40 mL water: 1mL Dotarem (brand of gadoterate meglumine) in solution: Axial T1 in and out of phase and T2, coronal T2, radial thick slab MRCP, coronal oblique thin section 3-D MRCP sequences. Axial T1 in and out of phase, T1 with fat suppression and T2 with fat suppression, coronal T1 in and out of phase and T1 with fat suppression, followed by post-gadolinium multi-phase T1 series with fat suppression and coronal T1 with fat suppression. Radial thick slab MRCP, coronal oblique thin section MRCP sequences were obtained. Reformatted axial and cholangiographic MIP images are available for review. MRI PANCREAS FINDINGS: Lung bases/heart: Heart is normal in size. No pericardial or pleural effusions. Spleen: Normal. Liver: Progressive diffuse loss of signal on the out of phase sequence consistent with worsening steatosis. Chronic hypervascular mass in segment VII (1.9 x 1.6 cm) which is T2 hyperintense with near complete homogeneous enhancement on the early phase contrast enhanced sequences which remains hyperintense to liver on delayed sequences consistent with a flash filling hemangioma. Gallbladder/biliary tree: Incidental chronic gallbladder fundal adenomyomatosis. Otherwise normal. Pancreas: Stable mild diffuse atrophy. Normal enhancement. No enhancing masses. No ductal dilatation or divisum. Multiple cysts again noted throughout the pancreas the dominant cyst in the proximal body measuring 1.6 x 1.4 cm (increased from 1.5 x 1.1 cm). New cyst in the head measuring 6 x 6 mm. Adrenal glands: Normal. Vasculature: Chronic aortic atherosclerosis. No AAA or acute findings. Genitourinary: Right hydronephrosis has resolved. Interval decrease in size and T1 hyperintense signal changes within the chronic right upper renal pole cortical cyst consistent with a benign Bosniak 2/proteinaceous-hemorrhagic cyst. Otherwise stable bilateral small simple and hemorrhagic cyst. Stable multifocal renal cortical scarring. No acute findings. Gastrointestinal tract: Colectomy changes. Otherwise unremarkable. Peritoneum/retroperitoneum: No lymphadenopathy, ascites or fluid collections. Musculoskeletal: No destructive or suspicious bone lesions. There is artifact from posterior fusion hardware at L4-5. Procedure Note Angelito Mcpherson MD - 12/25/2020 COMPARISON: MRI abdomen 03/10/2019. CT abdomen pelvis 03/29/2019. TECHNIQUE: Exam performed on a 1.5 Jeni high-field MRI scanner. Thefollowing sequences were obtained after the oral administration of 40 mLwater: 1mL Dotarem (brand of gadoterate meglumine) in solution: Axial T1in and out of phase and T2, coronal T2, radial thick slab MRCP, coronaloblique thin section 3-D MRCP sequences. Axial T1 in and out of phase, T1with fat suppression and T2 with fat suppression, coronal T1 in and out ofphase and T1 with fat suppression, followed by post-gadolinium multi-phaseT1 series with fat suppression and coronal T1 with fat suppression.Radial thick slab MRCP, coronal oblique thin section MRCP sequences wereobtained. Reformatted axial and cholangiographic MIP images are availablefor review. MRI PANCREAS FINDINGS: Lung bases/heart: Heart is normal in size. No pericardial or pleuraleffusions. Spleen: Normal. Liver: Progressive diffuse loss of signal on the out of phase sequenceconsistent with worsening steatosis. Chronic hypervascular mass in segmentVII (1.9 x 1.6 cm) which is T2 hyperintense with near complete homogeneousenhancement on the early phase contrast enhanced sequences which remainshyperintense to liver on delayed sequences consistent with a flash fillinghemangioma. Gallbladder/biliary tree: Incidental chronic gallbladder fundaladenomyomatosis. Otherwise normal. Pancreas: Stable mild diffuse atrophy. Normal enhancement. No enhancingmasses. No ductal dilatation or divisum. Multiple cysts again notedthroughout the pancreas the dominant cyst in the proximal body measuring1.6 x 1.4 cm (increased from 1.5 x 1.1 cm). New cyst in the head measuring6 x 6 mm. Adrenal glands: Normal. Vasculature: Chronic aortic atherosclerosis. No AAA or acute findings. Genitourinary: Right hydronephrosis has resolved. Interval decrease insize and T1 hyperintense signal changes within the chronic right upperrenal pole cortical cyst consistent with a benign Bosniak2/proteinaceous-hemorrhagic cyst. Otherwise stable bilateral small simpleand hemorrhagic cyst. Stable multifocal renal cortical scarring. No acutefindings. Gastrointestinal tract: Colectomy changes. Otherwise unremarkable. Peritoneum/retroperitoneum: No lymphadenopathy, ascites or fluidcollections. Musculoskeletal: No destructive or suspicious bone lesions. There isartifact from posterior fusion hardware at L4-5. IMPRESSION: 1.Mild increase in size the dominant pancreatic body cyst-1.6 cm and new 6mm pancreatic head cyst. Findings consistent with side branch IPMNs. 2.Progressive hepatic steatosis. 3.Additional chronic findings as above. us Neyda CONN IMG MR ABDOMEN Final Resul t documented in this encounter Visit Diagnoses Diagnosis 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 documented in this encounter Care Teams Web User Experience Strategist Relationship Specialty Start Date End Date Lakshmi Louis WHEAT GROWER PCP - General Family Medicine 02/18/19 11/20/21 Lakshmi Louis WHEAT GROWER PCP - General Family Medicine 11/21/21 08/15/23 Unknown, Unknown, PCP - General 08/16/23 08/22/23 Gregoria Landis DO [address] [place] [address] [email or web address] PCP - General Family Medicine 08/23/23 documented as of this encounter Additional Source Comments The information contained in this document represents components of the legal health record. It is not the complete legal health record.[facility]
--- OUTSIDE RECORDS SUMMARY | 2025-01-19 09:15 | XMS_ITS | Encounter Summary ---
Author Organization [facility] Address [address] [place] [address] [place] [address] Phone Care Team Providers Care Fire Support Specialist Name Role Phone Lakshmi Louis NP Primary Care Provider [phone] Unknown, Unknown Primary Care Provider Gregoria Sherman DO Primary Care Provider [phone] Encounter Details Date Type Department Care Team (Late st Contact Info) Description 12/12/2021 Procedure Pass OR Admitting Dept - Virtual Department [address] [place] [address] Social History Tobacco Use Types Packs/Day Years [...] 02/11/2025 11:00 AM EST Office Visit [facility] 10 [place] [address] Unknown, Unknown, Antonio Rosenthal MD [address] [place] [address] documented as of this encounter Visit Diagnoses Not on filedocumented in this encounter Care Teams Fire Support Specialist Relationship Specialty Start Date End Date Lakshmi Louis NP PCP - General Family Medicine 11/21/21 08/15/23 Unknown, Unknown, PCP - General 08/16/23 08/22/23 Gregoria Landis DO [address] [place] [address] PCP - General Family Medicine 08/23/23 documented as of this encounter Additional Source Comments The information contained in this document represents components of the legal health record. It is not the complete legal health record.[facility]
--- OUTSIDE RECORDS SUMMARY | 2025-01-19 09:15 | XMS_ITS | Encounter Summary ---
Author Organization [facility] Address [address] [place] [address] [place] [address] Phone Care Team Providers Care Spring Upholsterer Name Role Phone Lakshmi Louis SQL DATA ARCHITECT Primary Care Provider [phone] Lakshmi Louis SQL DATA ARCHITECT Primary Care Provider [phone] Unknown, Unknown Primary Care Provider Gregoria Sherman DO Primary Care Provider Encounter Details Date Type Department Care Team (Latest Contact Info) Description 12/17/2020 Transcribe Orders Virtual Department 30 [place] [address] Neyda Bryan, PA [address] [place] [address] Cyst of pancreas (Primary Dx) Social History Tobacco Use Types [...] Description 02/11/2025 11:00 AM EST Office Visit [facility] 10 [place] [address] Unknown, Unknown, Antonio Rosenthal MD [address] [address] [email or web address] documented as of this encounter Visit Diagnoses Diagnosis Cyst of pancreas- Primary Cyst and pseudocyst of pancreas documented in this encounter Care Teams Spring Upholsterer Relationship Specialty Start Date End Date Lakshmi Louis SQL DATA ARCHITECT PCP - General Family Medicine 02/18/19 11/20/21 Lakshmi Louis SQL DATA ARCHITECT PCP - General Family Medicine 11/21/21 08/15/23 Unknown, Unknown, PCP - General 08/16/23 08/22/23 Gregoria Landis DO [address] [place] [address] [email or web address] PCP - General Family Medicine 08/23/23 documented as of this encounter Additional Source Comments The information contained in this document represents components of the legal health record. It is not the complete legal health record.[facility]
--- OUTSIDE RECORDS SUMMARY | 2025-01-19 09:16 | XMS_ITS | Encounter Summary ---
Author Organization [facility] Address [address] [facility] [address] [place] [address] Phone Care Team Providers Care Vehicle Dynamics Engineer Name Role Phone Lakshmi Louis GREEN MEAT PACKER Primary Care Provider [phone] Lakshmi Louis GREEN MEAT PACKER Primary Care Provider [phone] Unknown, Unknown Primary Care Provider Gregoria Sherman DO Primary Care Provider Encounter Details Date Type Department Care Team (Late st Contact Info) Description 12/17/2020 Procedure Pass [facility], [address] [address] Social History Tobacco Use Types Packs/Day Years [...] Description 02/11/2025 11:00 AM EST Office Visit [facility] [address] [place] [address] Unknown, Unknown, Antonio Rosenthal MD [address] [place] [address] [email or web address] documented as of this encounter Visit Diagnoses Not on filedocumented in this encounter Care Teams Vehicle Dynamics Engineer Relationship Specialty Start Date End Date Lakshmi Louis GREEN MEAT PACKER PCP - General Family Medicine 02/18/19 11/20/21 Lakshmi Louis GREEN MEAT PACKER PCP - General Family Medicine 11/21/21 08/15/23 Unknown, Unknown, PCP - General 08/16/23 08/22/23 Gregoria Landis DO [address] [place] [address] PCP - General Family Medicine 08/23/23 documented as of this encounter Additional Source Comments The information contained in this document represents components of the legal health record. It is not the complete legal health record.[facility]
--- OUTSIDE RECORDS SUMMARY | 2025-01-19 09:16 | XMS_ITS | Encounter Summary ---
Author Organization [facility] Address [address] [place] [address] [place] [address] Phone Care Team Providers Care Mainstreaming Facilitator Name Role Phone Lakshmi Louis SENIOR ORACLE DATABASE ADMINISTRATOR Primary Care Provider [phone] Lakshmi Louis SENIOR ORACLE DATABASE ADMINISTRATOR Primary Care Provider [phone] Unknown, Unknown Primary Care Provider Gregoria Sherman DO Primary Care Provider [phone] Encounter Details Date Type Department Care Team (Late st Contact Info) Description 09/01/2019 Ancillary Orders Virtual Department 30 [place] [address] Marlene Tello MD [address] [place] [address] [email or web address] Left flank pain; Urinary frequency Social History Tobacco Use Types Packs/Day Years [...] Office Visit [facility] 10 [place] [address] Unknown, Unknown, Antonio Rosenthal MD [address] [address] [email or web address] documented as of this encounter Visit Diagnoses Diagnosis Left flank pain Abdominal pain, unspecified site Urinary frequency documented in this encounter Additional Health Concerns Infection Onset Date Last Indicated Resolved Time CoV-Risk 01/28/2020 01/29/2020 02/11/2020 1:24 AM EST documented as of this encounter Care Teams Mainstreaming Facilitator Relationship Specialty Start Date End Date Lakshmi Louis SENIOR ORACLE DATABASE ADMINISTRATOR PCP - General Family Medicine 02/18/19 11/20/21 Lakshmi Louis NP PCP - General Family Medicine 11/21/21 08/15/23 Unknown, Unknown, PCP - General 08/16/23 08/22/23 Gregoria Landis DO [address] [place] [address] PCP - General Family Medicine 08/23/23 documented as of this encounter Additional Source Comments The information contained in this document represents components of the legal health record. It is not the complete legal health record.[facility]
--- OUTSIDE RECORDS SUMMARY | 2025-01-19 09:17 | XMS_ITS | Encounter Summary ---
Author Organization [facility] Address [address] [place] [address] [place] [address] Phone Care Team Providers Care Director Of Enterprise Architecture Name Role Phone Lakshmi Louis ZOO CARETAKER Primary Care Provider [phone] Lakshmi Louis ZOO CARETAKER Primary Care Provider [phone] Unknown, Unknown Primary Care Provider Gregoria Sherman DO Primary Care Provider Encounter Details Date Type Department Care Team (Latest Contact Info) Description 01/28/2021 Transcribe Orders Virtual Department 30 [place] [address] Neyda Bryan PA [address] [place] [address] Pancreatic cyst (Primary Dx) Social History Tobacco Use Types [...] Description 02/11/2025 11:00 AM EST Office Visit [facility] 10 [place] [address] Unknown, Unknown, Antonio Rosenthal MD [address] [address] [email or web address] documented as of this encounter Visit Diagnoses Diagnosis Pancreatic cyst- Primary Cyst and pseudocyst of pancreas documented in this encounter Care Teams Director Of Enterprise Architecture Relationship Specialty Start Date End Date Lakshmi Louis ZOO CARETAKER PCP - General Family Medicine 02/18/19 11/20/21 Lakshmi Louis ZOO CARETAKER PCP - General Family Medicine 11/21/21 08/15/23 Unknown, Unknown, PCP - General 08/16/23 08/22/23 Gregoria Landis DO 70 [place] [address] [email or web address] PCP - General Family Medicine 08/23/23 documented as of this encounter Additional Source Comments The information contained in this document represents components of the legal health record. It is not the complete legal health record.[facility]
--- OUTSIDE RECORDS SUMMARY | 2025-01-19 09:17 | XMS_ITS | Encounter Summary ---
Author Organization [facility] Address [address] [employer] [facility] [address] [place] [address] Phone Care Team Providers Care Soft Metals Hand Engraver Name Role Phone Lakshmi Louis NP Primary Care Provider [phone] Unknown, Unknown Primary Care Provider Gregoria Sherman DO Primary Care Provider Encounter Details Date Type Department Care Team (Late st Contact Info) Description 08/10/2022 Procedure Pass [facility], [address] [address] Social History Tobacco Use Types Packs/Day Years [...] on file 07/29/2022 No 07/29/2022 No 07/29/2022 Comments No Sex and Gender Information Value [...] Office Visit [facility] 10 [place] [address] Unknown, Unknown, Antonio Rosenthal MD [address] [address] [email or web address] documented as of this encounter Visit Diagnoses Not on filedocumented in this encounter Care Teams Soft Metals Hand Engraver Relationship Specialty Start Date End Date Lakshmi Louis NP PCP - General Family Medicine 11/21/21 08/15/23 Unknown, Unknown, PCP - General 08/16/23 08/22/23 Gregoria Landis DO [address] [place] [address] PCP - General Family Medicine 08/23/23 documented as of this encounter Additional Source Comments The information contained in this document represents components of the legal health record. It is not the complete legal health record.[facility]
--- OUTSIDE RECORDS SUMMARY | 2025-01-19 09:17 | XMS_ITS | Encounter Summary ---
Author Organization [facility] Address [address] [employer] [facility] [address] [place] [address] Phone Care Team Providers Care Vocational Coordinator Name Role Phone Lakshmi Louis SPECIMEN BOSS Primary Care Provider [phone] Lakshmi Louis SPECIMEN BOSS Primary Care Provider [phone] Unknown, Unknown Primary Care Provider Gregoria Sherman DO Primary Care Provider [phone] Encounter Details Date Type Department Care Team (Late st Contact Info) Description 02/09/2021 Procedure Pass [facility], Ct Scan - [address] [address] Social History Tobacco Use Types Packs/Day Years Used Date Smoking Tobacco: Former Cigarettes - 1984 Smokeless Tobacco: Never Alcohol Use [...] PM EST documented as of this encounter Functional Status * Calculated C-SSRS Risk Score (Lifetime/Recent) Answer Date of Assessment Author No Risk Indicated 02/09/2021 8:01 AM EST Ramón Hebret RN * [place] Suicide Severity Rating Scale (Screener/Recent Self-Report) Question Answer Date of Assessment Author 1. Wish to be (Past 1 Month) No 021 8:01 AM Tierra Weir RN 2. Non-Specific Active Suici jaz Thoughts (Past 1 Month) No 02/09/2021 8:01 AM Tierra Weir, RN 6. Suicidal Behavior (Lifetime) No 8:01 AM EST Tierra Hebert RN documented as of this encounter Plan of Treatment Upcoming Encounters Date Type Department Care Team (Late st Contact Info) Description 02/11/2025 11:00 AM EST Office Visit [facility] [address] [place] [address] Unknown, Unknown, Antonio Rosenthal MD [address] [place] [address] documented as of this encounter Visit Diagnoses Not on filedocumented in this encounter Care Teams Vocational Coordinator Relationship Specialty Start Date End Date Lakshmi Louis NP PCP - General Family Medicine 02/18/19 11/20/21 Lakshmi Louis NP PCP - General Family Medicine 11/21/21 08/15/23 Unknown, Unknown, PCP - General 08/16/23 08/22/23 Gregoria Landis DO [address] [place] [address] PCP - General Family Medicine 08/23/23 documented as of this encounter Additional Source Comments The information contained in this document represents components of the legal health record. It is not the complete legal health record.[facility]
--- OUTSIDE RECORDS SUMMARY | 2025-01-19 09:17 | XMS_ITS | Encounter Summary ---
Author Organization [facility] Address [address] [facility] [address] [place] [address] Phone Care Team Providers Care Curbstone Setter Name Role Phone Lakshmi Louis DEALER ANALYST Primary Care Provider [phone] Lakshmi Louis DEALER ANALYST Primary Care Provider [phone] Unknown, Unknown Primary Care Provider Gregoria Sherman DO Primary Care Provider [phone] Encounter Details Date Type Department Care Team (Late Contact Info) Description 09/08/2019 Procedure Pass [facility] Admitting Dept Virtual Department 30 [place] [address] Social History Tobacco Use Types Packs/Day Years [...] AM EST Office Visit [facility] 10 [place] [address] Unknown, Unknown, Antonio Rosenthal MD [address] [place] [address] documented as of this encounter Visit Diagnoses Not on filedocumented in this encounter Additional Health Concerns Infection Onset Date Last Indicated Resolved Time CoV-Risk 01/28/2020 01/29/2020 02/11/2020 1:24 AM EST documented as of this encounter Care Teams Curbstone Setter Relationship Specialty Start Date End Date Lakshmi Louis DEALER ANALYST PCP - General Family Medicine 02/18/19 11/20/21 Lakshmi Louis NP PCP - General Family Medicine 11/21/21 08/15/23 Unknown, Unknown, PCP - General 08/16/23 08/22/23 Gregoria Landis DO [address] [place] [address] PCP - General Family Medicine 08/23/23 documented as of this encounter Additional Source Comments The information contained in this document represents components of the legal health record. It is not the complete legal health record.[facility]
--- OUTSIDE RECORDS SUMMARY | 2025-01-19 09:17 | XMS_ITS | Encounter Summary ---
Author Organization [facility] Address [address] [place] [address] [place] [address] Phone Care Team Providers Care Java J2Ee Architect Name Role Phone Lakshmi Louis ELECTRONIC WARFARE OPERATOR Primary Care Provider [phone] Lakshmi Louis ELECTRONIC WARFARE OPERATOR Primary Care Provider [phone] Unknown, Unknown Primary Care Provider Gregoria Sherman DO Primary Care Provider Encounter Details Date Type Department Care Team (Late st Contact Info) Description 09/01/2019 Ancillary Orders Virtual Department [address] [place] [address] Vanita Higginbotham PA [address] [phone] [email or web address] (formerly [employer]) Left flank pain; Urinary frequency; Personal history of urinary calculi Social History Tobacco Use Types Packs/Day Years [...] Description 02/11/2025 11:00 AM EST Office Visit [facility] [address] [place] [address] Unknown, Unknown, Antonio Rosenthal MD [address] [address] [email or web address] documented as of this encounter Visit Diagnoses Diagnosis Left flank pain Abdominal pain, unspecified site Urinary frequency Personal history of urinary calculi documented in this encounter Additional Health Concerns Infection Onset Date Last Indicated Resolved Time CoV-Risk 01/28/2020 01/29/2020 02/11/2020 1:24 AM EST documented as of this encounter Care Teams Java J2Ee Architect Relationship Specialty Start Date End Date Lakshmi Louis NP PCP - General Family Medicine 02/18/19 11/20/21 Lakshmi Louis ELECTRONIC WARFARE OPERATOR PCP - General Family Medicine 11/21/21 08/15/23 Unknown, Unknown, PCP - General 08/16/23 08/22/23 Gregoria Landis DO [address] [place] [address] PCP - General Family Medicine 08/23/23 documented as of this encounter Additional Source Comments The information contained in this document represents components of the legal health record. It is not the complete legal health record.[facility]
--- OUTSIDE RECORDS SUMMARY | 2025-01-19 09:17 | XMS_ITS | Encounter Summary ---
Author Organization [facility] Address [address] [place] [address] Phone Care Team Providers Care Dry Mill Worker Name Role Phone Lakshmi Louis NP Primary Care Provider [phone] Unknown, Unknown Primary Care Provider Gregoria Sherman DO Primary Care Provider Encounter Details Date Type Department Care Team (Late st Contact Info) Description 03/08/2022 Transcribe Orders [facility] [address] [place] [address] Lakshmi Louis, MEDIA MANAGER [address] [place] [address] Social History Tobacco Use Types Packs/Day Years [...] EST Office Visit [facility] [address] [place] [address] Unknown, Unknown, Antonio Rosenthal MD [address] [place] [address] [email or web address] documented as of this encounter Visit Diagnoses Not on filedocumented in this encounter Care Teams Dry Mill Worker Relationship Specialty Start Date End Date Lakshmi Louis MEDIA MANAGER PCP - General Family Medicine 11/21/21 08/15/23 Unknown, Unknown, PCP - General 08/16/23 08/22/23 Gregoria Landis DO [address] [place] [address] PCP - General Family Medicine 08/23/23 documented as of this encounter Additional Source Comments The information contained in this document represents components of the legal health record. It is not the complete legal health record.[facility]
--- OUTSIDE RECORDS SUMMARY | 2025-01-19 09:17 | XMS_ITS | Encounter Summary ---
Author Organization [facility] Address [address] [place] [address] Phone Care Team Providers Care Inspector Rag Sorting Name Role Phone Lakshmi Louis NP Primary Care Provider [phone] Unknown, Unknown Primary Care Provider Gregoria Sherman DO Primary Care Provider Reason for Referral * MRI/CAT Scan - Closed Specialty Diagnoses / Procedures Referred By Kitty t Referred To Contact Radiology Diagnoses Arm numbness Cervical radiculopathy Procedures MRI Cervical Spine Babatunde Carvalho MD Phone: tel: fax: [email or web address] Referral ID Status Reason Start Date Expiration Date Visits Re quested Visits Authorized [id number] Closed 08/10/2022 1 1 Encounter Details Date Type Department Care Team (Latest Contact Info) Description 08/10/2022 Transcribe Orders Virtual Department [address] [place] [address] Babatunde Carvalho MD [address] [place] [address], [address] [place], [place] [id number] [email or web address] Arm numbness (Primary Dx); Cervical radiculopathy Social History Tobacco Use Types Packs/Day Years [...] Description 02/11/2025 11:00 AM EST Office Visit [facility]ology [facility] 10 [place] [address] Unknown, Unknown, MD Fry, MD Antonio [address] [address] [email or web address] documented as of this encounter Results * MRI CERVICAL SPINE (NEURO) FOCUS WITHOUT CONTRAST (09/10/2022 4:31 PM EDT) Anatomical Region Laterality Modality C-spine Magnetic Resonan ce 09/13/2022 12:2 7 AM EDT Impressions 09/13/2022 12:33 AM EDT Post surgical changes from C5-6 ACDF. Adjacent segment degeneration at C6-7 where there is moderate to severe spinal canal and moderate to severe neuroforaminal stenosis. Additional spinal canal stenoses, moderate at C4-5 and mild to moderate at C3-4. Additional neuroforaminal stenoses, moderate to severe left and mild right C4-5 and mild at C3-4. Overall no significant change when compared to 03/17/2020. Narrative 09/13/2022 12:33 AM EDT MRI CERVICAL SPINE (NEURO) FOCUS WITHOUT CONTRAST TECHNIQUE: MRI CERVICAL SPINE (NEURO) FOCUS WITHOUT CONTRAST COMPARISON: MRI CERVICAL SPINE (NEURO) FOCUS WITHOUT CONTRAST FINDINGS: ALIGNMENT: Straightening of the cervical lordosis. 2 mm C5-6 anterolisthesis. Millimeters C7-T1 anterolisthesis. MARROW: No compression fracture or marrow replacing lesion. DISCS: Disc desiccation at all levels. CORD: Cord and posterior fossa within normal limits. PARASPINAL SOFT TISSUES: Surgical changes from C5-6 ACDF. Vertebral artery flow voids preserved. FINDINGS BY LEVEL: C2-3: Facet arthropathy. No spinal canal or neuroforaminal stenosis. C3-4: Diffuse disc bulge, facet arthropathy, uncovertebral hypertrophy, and thickening of ligamentum flavum. Mild to moderate spinal canal stenosis. Mild neuroforaminal stenosis. C4-5: Diffuse disc bulge, facet arthropathy, uncovertebral hypertrophy, and thickening of ligamentum flavum. Moderate spinal canal stenosis. Moderate to severe left and mild right neuroforaminal stenosis. C5-6: ACDF. No spinal canal or neuroforaminal stenosis. C6-7: Diffuse disc bulge, facet arthropathy, uncovertebral hypertrophy, and thickening of ligamentum flavum. Moderate to severe spinal canal stenosis. Moderate to severe neuroforaminal stenosis. C7-T1:Diffuse disc bulge, facet arthropathy, and thickening of ligamentum flavum. Mild spinal canal stenosis. No neuroforaminal stenosis. Procedure Note Ligia Delgado MD - 09/13/2022 MRI CERVICAL SPINE (NEURO) FOCUS WITHOUT CONTRAST TECHNIQUE: MRI CERVICAL SPINE (NEURO) FOCUS WITHOUT CONTRAST COMPARISON: MRI CERVICAL SPINE (NEURO) FOCUS WITHOUT CONTRAST FINDINGS: ALIGNMENT: Straightening of the cervical lordosis. 2 mm C5-6anterolisthesis. Millimeters C7-T1 anterolisthesis. MARROW: No compression fracture or marrow replacing lesion. DISCS: Disc desiccation at all levels. CORD: Cord and posterior fossa within normal limits. PARASPINAL SOFT TISSUES: Surgical changes from C5-6 ACDF. Vertebral arteryflow voids preserved. FINDINGS BY LEVEL: C2-3: Facet arthropathy. No spinal canal or neuroforaminal stenosis. C3-4: Diffuse disc bulge, facet arthropathy, uncovertebral hypertrophy,and thickening of ligamentum flavum. Mild to moderate spinal canalstenosis. Mild neuroforaminal stenosis. C4-5: Diffuse disc bulge, facet arthropathy, uncovertebral hypertrophy,and thickening of ligamentum flavum. Moderate spinal canal stenosis.Moderate to severe left and mild right neuroforaminal stenosis. C5-6: ACDF. No spinal canal or neuroforaminal stenosis. C6-7: Diffuse disc bulge, facet arthropathy, uncovertebral hypertrophy,and thickening of ligamentum flavum. Moderate to severe spinal canalstenosis. Moderate to severe neuroforaminal stenosis. C7-T1:Diffuse disc bulge, facet arthropathy, and thickening of ligamentumflavum. Mild spinal canal stenosis. No neuroforaminal stenosis. IMPRESSION: Post surgical changes from C5-6 ACDF. Adjacent segment degeneration at C6-7 where there is moderate to severespinal canal and moderate to severe neuroforaminal stenosis. Additional spinal canal stenoses, moderate at C4-5 and mild to moderate atC3-4. Additional neuroforaminal stenoses, moderate to severe left and mild rightC4-5 and mild at C3-4. Overall no significant change when compared to 03/17/2020. Babatunde Carvalho MD IMG MR XSPECIALTY Final Resu lt documented in this encounter Visit Diagnoses Diagnosis Arm numbness- Primary Disturbance of skin sensation Cervical radiculopathy Brachial neuritis or radiculitis nos Arm numbness Disturbance of skin sensation Cervical radiculopathy Brachial neuritis or radiculitis nos documented in this encounter Care Teams Inspector Rag Sorting Relationship Specialty Start Date End Date Lakshmi Louis NP PCP - General Family Medicine 11/21/21 08/15/23 Unknown, Dylan, PCP - General 08/16/23 08/22/23 Gregoria Landis DO [address] [place] [address] [email or web address] PCP - General Family Medicine 08/23/23 documented as of this encounter Additional Source Comments The information contained in this document represents components of the legal health record. It is not the complete legal health record.[facility]
--- OUTSIDE RECORDS SUMMARY | 2025-01-19 09:17 | XMS_ITS | Encounter Summary ---
Author Organization [facility] Address [address] [facility] [address] [place] [address] Phone Care Team Providers Care Onion Farmer Name Role Phone Lakshmi Louis SIMULATION ENGINEER Primary Care Provider [phone] Lakshmi Louis SIMULATION ENGINEER Primary Care Provider [phone] Unknown, Unknown Primary Care Provider Gregoria Sherman DO Primary Care Provider Encounter Details Date Type Department Care Team (Late st Contact Info) Description 12/01/2020 Procedure Pass [facility], [address] [address] Social History Tobacco Use Types Packs/Day Years [...] 02/11/2025 11:00 AM EST Office Visit [facility] Gastroenterology Clinic [address] [place] [address] Unknown, Unknown, Antonio Rosenthal MD [address] [place] [address] [email or web address] documented as of this encounter Visit Diagnoses Not on filedocumented in this encounter Care Teams Onion Farmer Relationship Specialty Start Date End Date Lakshmi Louis SIMULATION ENGINEER PCP - General Family Medicine 02/18/19 11/20/21 Lakshmi Louis SIMULATION ENGINEER PCP - General Family Medicine 11/21/21 08/15/23 Unknown, Unknown, PCP - General 08/16/23 08/22/23 Gregoria Landis DO [address] [place] [address] PCP - General Family Medicine 08/23/23 documented as of this encounter Additional Source Comments The information contained in this document represents components of the legal health record. It is not the complete legal health record.[facility]
--- OUTSIDE RECORDS SUMMARY | 2025-01-19 09:17 | XMS_ITS | Encounter Summary ---
Author Organization [facility] Address [address] [facility] [address] [place] [address] Phone Care Team Providers Care Offset Press Operator Apprentice Name Role Phone Gregoria Landis DO Primary Care Provider [phone] Reason for Referral * MRI/CAT Scan - Closed Specialty Diagnoses / Procedures Referred By Contac t Referred To Contact Radiology Diagnoses Pancreatic cyst Procedures MRI Cholangiopancreatography (MRCP) Antonio Fry MD [address] [place] [address] Phone: tel: fax: [email or web address] Referral ID Status Reason Start Date Expiration Date Visits Re quested Visits Authorized [id number] Closed 10/03/2023 10/02/2024 1 1 Encounter Details Date Type Department Care Team (Latest Contact Info) Description 10/03/2023 Transcribe Orders Virtual Department 30 [place] [address] Antonio Fry MD [address] [place] [phone] Pancreatic cyst (Primary Dx) Social History Tobacco Use Types Packs/Day Years Used Date Smoking Tobacco: Former Cigarettes 1 960 - 1974 Smokeless Tobacco: Never Alcohol Use Standard Drinks/Week Comments No 0 (1 standard drink = 0.6 oz pur e alcohol) Education Answer Date Recorded Are you interested in more education? Not on padma e 07/29/2022 Are you concerned about learning? Not on file 07/29/2022 No 07/29/2022 No 07/29/2022 Digital Access Answer Date Recorded No 08/22/2022 No 08/22/2022 Reliable internet access at home? Not on file 08/22/2022 Device with a working camera? 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 No main pancreatic duct dilation. Narrative 11/22/2023 1:19 PM EDT MRI CHOLANGIOPANCREATOGRAPHY (MRCP) WITH AND WITHOUT CONTRAST Referring clinician's provided indication for this examination in Epic: Outside Radiology Order; pancreatic cyst TECHNIQUE: Multiplanar MR imaging of the abdomen was performed using T1, T2, fat saturated, and diffusion weighted techniques. 2D and 3D MRCP sequences were performed. Dynamic multiphase imaging was also performed after administration of an intravenous gadolinium contrast agent. COMPARISON: MRI abdomen 11/12/2020 FINDINGS: Lower Chest: Normal. No consolidation or pleural effusions. Liver: No suspicious focal liver lesion. Fatty liver. Benign segment 7 hepatic hemangioma. Biliary: No biliary ductal dilatation. Gallbladder fundal adenomyomatosis. Spleen: Normal. No splenomegaly or focal lesions. Pancreas: similar 2.1 cm cystic pancreatic body focus on 1003:66 (when remeasured previously), as well as other scattered small cystic pancreatic foci. No main duct dilation. Adrenal Glands: Normal. No nodules. Kidneys/Ureters: No solid renal mass or hydronephrosis. Scattered benign simple and hemorrhagic/proteinaceous renal cysts. Bowel: No bowel obstruction or wall thickening. Peritoneum/Retroperitoneum: Normal. No masses, pneumoperitoneum, or fluid. Lymph Nodes: Normal. No lymphadenopathy. Vessels: No abdominal aortic aneurysm. Bones/Soft Tissues: No suspicious focal osseous lesion.Lumbar spinal fusion hardware. Benign vertebral hemangiomas at multiple levels. Procedure Note Sushant Mckeon MD - 11/22/2023 MRI CHOLANGIOPANCREATOGRAPHY (MRCP) WITH AND WITHOUT CONTRAST Referring clinician's provided indication for this examination in Epic:Outside Radiology Order; pancreatic cyst TECHNIQUE: Multiplanar MR imaging of the abdomen was performed using T1,T2, fat saturated, and diffusion weighted techniques. 2D and 3D MRCPsequences were performed. Dynamic multiphase imaging was also performedafter administration of an intravenous gadolinium contrast agent. COMPARISON: MRI abdomen 11/12/2020 FINDINGS: Lower Chest: Normal. No consolidation or pleural effusions. Liver: No suspicious focal liver lesion. Fatty liver. Benign segment 7hepatic hemangioma. Biliary: No biliary ductal dilatation. Gallbladder fundaladenomyomatosis. Spleen: Normal. No splenomegaly or focal lesions. Pancreas: similar 2.1 cm cystic pancreatic body focus on 1003:66 (whenremeasured previously), as well as other scattered small cystic pancreaticfoci. No main duct dilation. Adrenal Glands: Normal. No nodules. Kidneys/Ureters: No solid renal mass or hydronephrosis. Scattered benignsimple and hemorrhagic/proteinaceous renal cysts. Bowel: No bowel obstruction or wall thickening. Peritoneum/Retroperitoneum: Normal. No masses, pneumoperitoneum, orfluid. Lymph Nodes: Normal. No lymphadenopathy. Vessels: No abdominal aortic aneurysm. Bones/Soft Tissues: No suspicious focal osseous lesion.Lumbar spinalfusion hardware. Benign vertebral hemangiomas at multiple levels. 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 No main pancreatic duct dilation. us Antonio Fry MD IMG MR ABDOMEN Final Result documented in this encounter Visit Diagnoses Diagnosis Pancreatic cyst- Primary Cyst and pseudocyst of pancreas Pancreatic cyst Cyst and pseudocyst of pancreas documented in this encounter Care Teams Offset Press Operator Apprentice Relationship Specialty Start Date End Date Gregoria Landis DO [address] [place] [address] [email or web address] PCP - General Family Medicine 08/23/23 documented as of this encounter Additional Source Comments The information contained in this document represents components of the legal health record. It is not the complete legal health record.[facility]
--- OUTSIDE RECORDS SUMMARY | 2025-01-19 09:17 | XMS_ITS | Encounter Summary ---
Author Organization [facility] Address [address] [place] [address] Phone Care Team Providers Care Unloader Name Role Phone Lakshmi Louis NP Primary Care Provider [phone] Unknown, Unknown Primary Care Provider Gregoria Sherman DO Primary Care Provider Reason for Referral * MRI/CAT Scan - Closed Specialty Diagnoses / Procedures Referred By Contmonica t Referred To Contact Radiology Diagnoses Memory loss Concussion with loss of consciousness, initial encounter White matter disease Nonintractable headache, unspecified chronicity pattern, unspecified headache type Procedures MRI Brain Babatunde Carvalho MD Phone: tel: fax: [email or web address] Referral ID Status Reason Start Date Expiration Date Visits Re quested Visits Authorized [id number] Closed 04/06/2022 04/06/2023 1 1 Encounter Details Date Type Department Care Team (Latest Contact Info) Description 04/06/2022 Transcribe Orders [facility] Department [address] [place] [address] Babatunde Carvalho MD [address] [place] [address], [address] [place] [address] [email or web address] Memory loss (Primary Dx); Concussion with loss of consciousness, initial encounter; White matter disease; Nonintractable headache, unspecified chronicity pattern, unspecified headache type Social History Tobacco Use Types Packs/Day Years [...] Description 02/11/2025 11:00 AM EST Office Visit [facility] [address] [place] [address] Unknown, Unknown, Antonio Rosenthal MD [address] [place] [address] [email or web address] documented as of this encounter Results * MRI BRAIN WITHOUT CONTRAST (04/26/2022 5:30 PM EST) Anatomical Region Laterality Modality Head Magnetic Resonan ce 04/27/2022 9:03 PM EST Impressions 04/28/2022 8:02 AM EST No clear intracranial cause for the reported symptoms identified. No evidence of a regional brain parenchymal volume loss pattern. Narrative 04/28/2022 8:02 AM EST MRI BRAIN WITHOUT CONTRAST TECHNIQUE: MRI BRAIN WITHOUT CONTRAST Multi-sequence, multi-planar MRI of the brain was performed without intravenous contrast. COMPARISON: Brain MRI 02/18/2019. FINDINGS: Brain Parenchyma: There is mild scattered T2/FLAIR hyperintensity in the periventricular and deep white matter which is nonspecific and can be seen in the setting of chronic small vessel disease, similar to prior. No evidence of acute infarct, mass lesion, or recent hemorrhage. Punctate old right thalamic microhemorrhage (7:47), most likely clinically insignificant. No evidence of a regional brain parenchymal volume loss pattern Ventricular System and Extra-Axial Spaces: Normal. No evidence of midline shift or hydrocephalus. Extracranial Structures: Arterial flow voids in the skull base are present. Bilateral lens replacements. Minimal inferior left maxillary sinus mucosal thickening. Procedure Note Sushant Mckeon MD - 04/28/2022 MRI BRAIN WITHOUT CONTRAST TECHNIQUE: MRI BRAIN WITHOUT CONTRAST Multi-sequence, multi-planar MRI of the brain was performed withoutintravenous contrast. COMPARISON: Brain MRI 02/18/2019. FINDINGS: Brain Parenchyma: There is mild scattered T2/FLAIR hyperintensity in theperiventricular and deep white matter which is nonspecific and can be seenin the setting of chronic small vessel disease, similar to prior. Noevidence of acute infarct, mass lesion, or recent hemorrhage. Punctate oldright thalamic microhemorrhage (7:47), most likely clinicallyinsignificant. No evidence of a regional brain parenchymal volume losspattern Ventricular System and Extra-Axial Spaces: Normal. No evidence of midlineshift or hydrocephalus. Extracranial Structures: Arterial flow voids in the skull base arepresent. Bilateral lens replacements. Minimal inferior left maxillarysinus mucosal thickening. IMPRESSION: No clear intracranial cause for the reported symptoms identified. Noevidence of a regional brain parenchymal volume loss pattern. Babatunde Carvalho MD IMG MR HEAD/NECK Final Resul t documented in this encounter Visit Diagnoses Diagnosis Memory loss- Primary Concussion with loss of consciousness, initial encounter White matter disease Nonintractable headache, unspecified chronicity pattern, unspecified headache type Memory loss Concussion with loss of consciousness, initial encounter White matter disease Nonintractable headache, unspecified chronicity pattern, unspecified headache type documented in this encounter Care Teams Unloader Relationship Specialty Start Date End Date Lakshmi Louis NP PCP - General Family Medicine 11/21/21 08/15/23 Unknown, Unknown, PCP - General 08/16/23 08/22/23 Gregoria Landis DO [address] [place] [address] [email or web address] PCP - General Family Medicine 08/23/23 documented as of this encounter Additional Source Comments The information contained in this document represents components of the legal health record. It is not the complete legal health record.[facility]
--- OUTSIDE RECORDS SUMMARY | 2025-01-19 09:18 | XMS_ITS | Encounter Summary ---
Author Organization [facility] Address [address] [place] [address] [place] [phone] Phone Care Team Providers Care Accredited Legal Secretary Name Role Phone Lakshmi Louis CHARGE ACCOUNT IDENTIFICATION CLERK Primary Care Provider [phone] Lakshmi Louis CHARGE ACCOUNT IDENTIFICATION CLERK Primary Care Provider [phone] Unknown, Unknown Primary Care Provider Gregoria Sherman DO Primary Care Provider [phone] Encounter Details Date Type Department Care Team (Latest Contact Info) Description 09/27/2021 Transcribe Orders Virtual Department [address] [place] [address] Antonio Fry MD [address] [place] [id number] Abnormal LFTs (Primary Dx); Non-alcoholic fatty liver disease Social History Tobacco Use Types Packs/Day Years [...] AM EST Office Visit [facility] [address] [place] [address] Unknown, Unknown, Antonio Rosenthal MD [address] [facility]. [facility] [address] [place] [address] documented as of this encounter Results * US LIVER WITH ELASTOGRAPHY (10/25/2021 8:37 AM EDT) Anatomical Region Laterality Modality Abdomen Ultrasound 10/25/2021 11:5 1 AM EDT Impressions 10/25/2021 12:00 PM EDT 1.Mean Liver Stiffness Value 8.2 kPa. Hepatic steatosis. 2.Slight interval increase in size of previously demonstrated cystic lesion at the pancreatic head now measuring up to 1.9 cm. MRI is recommended for further evaluation. Narrative 10/25/2021 12:00 PM EDT US LIVER WITH ELASTOGRAPHY TECHNIQUE: US Limited Abdomen with Liver Elastography. COMPARISON: Abdominal sonography 04/04/2010 CT abdomen pelvis 02/09/2021, and MRCP 12/24/2020 FINDINGS: MIDLINE VASCULATURE: The visualized IVC is patent. Portal vein is patent. The aorta is visualized. The maximum visualized aortic diameter is 1.9 cm. LIVER: Diffusely increased echogenicity of the hepatic parenchyma with hepatic steatosis. The previously demonstrated hemangioma is not discretely demonstrated on the current study. BILIARY: Gallbladder: The gallbladder is nondistended with normal gallbladder wall thickness. Redemonstration of fundal adenomyomatosis. Common bile duct measures 3 mm. PANCREAS: Incompletely visualized due to overlying bowel gas. There is a cystic lesion at the pancreatic head measuring up to 1.9 cm as compared with 1.6 cm previously PERITONEUM: No free fluid. KIDNEYS: The right kidney is normal in size. No hydronephrosis or calculus demonstrated. Liver no normal renal cysts are not well demonstrated. Elastography: Sonographic assessment (kPa): 8.2. (IQR/Med: 10.1 %) Risk of fibrosis: This is less than 9 kPa, which in the absence of other known clinical signs, rules out compensated advanced chronic liver disease. SOCIETY OF RADIOLOGISTS IN ULTRASOUND CONSENSUS: In the setting of elevated liver function tests, nonfasting, vascular congestion, etc., the stage of liver fibrosis may be overestimated. In some patients with NAFLD, the cut-off values for compensated advanced chronic liver disease may be lower. In causes other than viral hepatitis and NAFLD, the cut-off values are not well established. Xavi RG, Keith SR, Nura D, Stephanie G, Nic G. Update to the Society of Radiologists in Ultrasound Liver Elastography Consensus Statement. Radiology. 2019;296(2):263-274. doi: 10.1148/radiol.[id number]. Epub 2019Sep 08. PMID: [id number]. Procedure Note Briana Slater MD - 10/25/2021 US LIVER WITH ELASTOGRAPHY TECHNIQUE: US Limited Abdomen with Liver Elastography. COMPARISON: Abdominal sonography 04/04/2010 CT abdomen pelvis 02/09/2021,and MRCP 12/24/2020 FINDINGS: MIDLINE VASCULATURE: The visualized IVC is patent. Portal vein is patent.The aorta is visualized. The maximum visualized aortic diameter is 1.9cm. LIVER: Diffusely increased echogenicity of the hepatic parenchyma withhepatic steatosis. The previously demonstrated hemangioma is notdiscretely demonstrated on the current study. BILIARY: Gallbladder: The gallbladder is nondistended with normalgallbladder wall thickness. Redemonstration of fundal adenomyomatosis. Common bile duct measures 3 mm. PANCREAS: Incompletely visualized due to overlying bowel gas. There is acystic lesion at the pancreatic head measuring up to 1.9 cm as comparedwith 1.6 cm previously PERITONEUM: No free fluid. KIDNEYS: The right kidney is normal in size. No hydronephrosis or calculusdemonstrated. Liver no normal renal cysts are not well demonstrated. Elastography: Sonographic assessment (kPa): 8.2. (IQR/Med: 10.1 %) Risk of fibrosis: This is less than 9 kPa, which in theabsence of other known clinical signs, rules out compensated advancedchronic liver disease. SOCIETY OF RADIOLOGISTS IN ULTRASOUND CONSENSUS: In the setting of elevated liver function tests, nonfasting, vascularcongestion, etc., the stage of liver fibrosis may be overestimated. Insome patients with NAFLD, the cut-off values for compensated advancedchronic liver disease may be lower. In causes other than viral hepatitisand NAFLD, the cut-off values are not well established. Xavi RG, Keith SR, Nura D, Stephanie G, Nic G. Update to theSociety of Radiologists in Ultrasound Liver Elastography ConsensusStatement. Radiology. 2020 Oct;296(2):263-274. doi:10.1148/radiol.[id number]. Epub 2019Sep 08. PMID: [id number]. IMPRESSION: 1.Mean Liver Stiffness Value 8.2 kPa. Hepatic steatosis. 2.Slight interval increase in size of previously demonstrated cysticlesion at the pancreatic head now measuring up to 1.9 cm. MRI isrecommended for further evaluation. us Antonio Fry MD IMG US ABDOMEN Final Result documented in this encounter Visit Diagnoses Diagnosis Abnormal LFTs- Primary Non-alcoholic fatty liver disease Abnormal LFTs Non-alcoholic fatty liver disease documented in this encounter Care Teams Accredited Legal Secretary Relationship Specialty Start Date End Date Lakshmi Louis NP PCP - General Family Medicine 02/18/19 11/20/21 Lakshmi Louis NP PCP - General Family Medicine 11/21/21 08/15/23 Unknown, Unknown, PCP - General 08/16/23 08/22/23 Gregoria Landis DO [address] [place] [id number] PCP - General Family Medicine 08/23/23 documented as of this encounter Additional Source Comments The information contained in this document represents components of the legal health record. It is not the complete legal health record.[facility]
--- OUTSIDE RECORDS SUMMARY | 2025-01-19 09:20 | XMS_ITS | Encounter Summary ---
Author Organization [facility] Address [address] [facility] [address] [place] [address] Phone Care Team Providers Care Packing House Laborer Name Role Phone Lakshmi Louis SOCCER COACH Primary Care Provider [phone] Lakshmi Louis SOCCER COACH Primary Care Provider [phone] Unknown, Unknown Primary Care Provider Gregoria Sherman DO Primary Care Provider Encounter Details Date Type Department Care Team (Late st Contact Info) Description 10/26/2021 Procedure Pass [facility], [address] [address] Social History Tobacco Use Types Packs/Day Years [...] Description 02/11/2025 11:00 AM EST Office Visit [facility] [address] [place] [phone] Unknown, Unknown, Antonio Rosenthal MD [address] [place] [phone] [email or web address] documented as of this encounter Visit Diagnoses Not on filedocumented in this encounter Care Teams Packing House Laborer Relationship Specialty Start Date End Date Lakshmi Louis SOCCER COACH PCP - General Family Medicine 02/18/19 11/20/21 Lakshmi Louis SOCCER COACH PCP - General Family Medicine 11/21/21 08/15/23 Unknown, Unknown, PCP - General 08/16/23 08/22/23 Gregoria Landis DO [address] [place] [address] PCP - General Family Medicine 08/23/23 documented as of this encounter Additional Source Comments The information contained in this document represents components of the legal health record. It is not the complete legal health record.[facility]
--- OUTSIDE RECORDS SUMMARY | 2025-01-19 09:20 | XMS_ITS | Encounter Summary ---
Author Organization [facility] Address [address] [place] [phone] Phone Care Team Providers Care Bottom Liquor Attendant Name Role Phone Lakshmi Louis NP Primary Care Provider [phone] Unknown, Unknown Primary Care Provider Gregoria Sherman DO Primary Care Provider Reason for Referral * Outpatient Procedure - Closed Specialty Diagnoses / Procedures Referred By Contac t Referred To Contact Radiology Diagnoses TIA (transient ischemic attack) Procedures US Carotid Duplex Complete (Bilateral) Babatunde Carvalho MD Phone: tel: fax: mailto: Referral ID Status Reason Start Date Expiration Date Visits Re quested Visits Authorized [id number] Closed 09/05/2022 1 1 Encounter Details Date Type Department Care Team (Latest Contact Info) Description 09/05/2022 Transcribe Orders Virtual Department [address] [place] [address] Babatunde Carvalho MD [address] [place] [address], [address] [place], [place] [id number] [email or web address] TIA (transient ischemic attack) (Primary Dx) Social History Tobacco Use Types Packs/Day Years Used Date Smoking Tobacco: Former Cigarettes 1 1974 Smokeless Tobacco: Never Alcohol Use Standard [...] Description 02/11/2025 11:00 AM EST Office Visit [facility] [address] [place] [address] Unknown, Unknown, Antonio Rosenthal MD [address] [place] [phone] [email or web address] documented as of this encounter Results * US Carotid Duplex Complete (Bilateral) (09/12/2022 11:59 AM EDT) Anatomical Region Laterality Modality Heart, Thoracic Vasculature, Neck Ultrasound 09/14/2022 9:36 AM EDT Impressions 09/14/2022 9:41 AM EDT Mild bilateral carotid plaquing without hemodynamically significant ICA stenoses apparent. POS - [id number] Narrative 09/14/2022 9:41 AM EDT COMPARISON: 05/27/2015 CAROTID ULTRASOUND FINDINGS: Color duplex Doppler evaluation the carotid arteries was performed. There is a small amount of calcified plaque in the right bulb extending into the proximal ICA. Peak systolic velocity in the distal CCA was calculated at 0.54 m/s and within the proximal ICA at 0.72 m/s corresponding to a ratio of 1.33. No elevated diastolic velocities or significant ICA spectral broadening apparent. On the left there is a small amount of mixed calcified/noncalcified plaque in the distal CCA and bulb. Peak systolic velocity in the distal CCA was calculated at 0.58 m/s and within the ICA at 0.55 m/s corresponding to a ratio of 0.94. No elevated diastolic velocities or significant ICA spectral broadening apparent. The above measurements are consistent with the presence of less than 50% ICA stenoses. Antegrade flow was demonstrated in both vertebral arteries. Any stenosis measurement is relative to the distal ICA diameters. Procedure Note Daniel James MD - 09/14/2022 COMPARISON: 05/27/2015 CAROTID ULTRASOUND FINDINGS: Color duplex Doppler evaluation the carotid arteries was performed. There is a small amount of calcified plaque in the right bulb extendinginto the proximal ICA. Peak systolic velocity in the distal CCA wascalculated at 0.54 m/s and within the proximal ICA at 0.72 m/scorresponding to a ratio of 1.33. No elevated diastolic velocities orsignificant ICA spectral broadening apparent. On the left there is a small amount of mixed calcified/noncalcified plaquein the distal CCA and bulb. Peak systolic velocity in the distal CCA wascalculated at 0.58 m/s and within the ICA at 0.55 m/s corresponding to aratio of 0.94. No elevated diastolic velocities or significant ICAspectral broadening apparent. The above measurements are consistent with the presence of less than 50%ICA stenoses. Antegrade flow was demonstrated in both vertebralarteries. Any stenosis measurement is relative to the distal ICA diameters. IMPRESSION: Mild bilateral carotid plaquing without hemodynamically significant ICAstenoses apparent. POS - [id number] Babatunde Carvalho MD US NEUROVASCULAR Final Re sult documented in this encounter Visit Diagnoses Diagnosis TIA (transient ischemic attack)- Primary Unspecified transient cerebral ischemia TIA (transient ischemic attack) Unspecified transient cerebral ischemia documented in this encounter Care Teams Bottom Liquor Attendant Relationship Specialty Start Date End Date Lakshmi Louis NP PCP - General Family Medicine 11/21/21 08/15/23 Unknown, Unknown, PCP - General 08/16/23 08/22/23 Gregoria Landis DO [address] [place] [phone] [email or web address] PCP - General Family Medicine 08/23/23 documented as of this encounter Additional Source Comments The information contained in this document represents components of the legal health record. It is not the complete legal health record.[facility]
--- OUTSIDE RECORDS SUMMARY | 2025-01-19 09:22 | XMS_ITS | Clinical Summary ---
Author Organization [facility] Address [address] [place] [id number] Phone Care Team Providers Care Blocker [employer]ated [employer] Forms Name Role Phone Landis Gregoria Bailey Primary Care Provider Allergies Active Allergy Reactions Criticality Noted Date Comments Adhesive 02/13/2017 acrylilated Aspirin Unknown 03/21/2011 Bee Pollen Anaphylaxis High 10/13/2019 All stinging insects Hydrocortisone High 01/22/2020 Elevated blood pressure/ heart Gabapentin Diarrhea,Swelling 11/02/2017 Gluten Protein 09/05/2019 Nsaids (Non-Steroidal Anti-Inflammatory Drug) 02/13/2017 Other 09/19/2022 Steroids - Elevated Blood Pressure / Heart Pollen Extracts 05/20/2024 Seasonal allergies Pork Derived (Porcine) 05/13/2021 Adhesive Tape-Silicones Hives 09/05/2019 Medications ALBUTEROL INHL Inhale 2 puffs into the lungs every 4 (four) hours as needed. Active levothyroxine (SYNTHROID) 112 MCG tablet Synthroid Only - No Generic Active loratadine 10 mg Cap as needed. Active lactase 4,500 unit Tab tablet as needed. Act brigid ascorbic acid, vitamin C, (VITAMIN C) 500 MG tablet Take 500 mg by mouth daily. 24 hour immune Active LYSINE ORAL Take by mouth. Act brigid EPINEPHrine 0.3 mg/0.3 mL auto-injector 0 Active acetylcysteine (NAC ORAL) Take by mouth. Acti ve LISDEXAMFETAMINE 30 mg capsule Vyvanse 2 Active acetaminophen (TYLENOL) 325 mg tablet Take 2 tablets (650 mg total) by mouth every 6 (six) hours as needed for mild pain. 0 2 Active ketoconazole (NIZORAL) 2 % shampoo 2 Active fluticasone propionate (FLONASE) 50 mcg/actuation nasal spray 1 spray by Nasal route as needed. Active simethicone (MYLICON) 80 mg chewable tablet Take 1 tablet (80 mg total) by mouth every 6 (six) hours as needed. 4 Active Additional Information Patient not taking.Reported on 05/20/2024 diclofenac sodium (VOLTAREN) 1 % Gel Apply 4 g topically 4 (four) times a day as needed. 4 Active Additional Information Patient not taking.Reported on 05/20/2024 ondansetron (ZOFRAN) 4 MG tablet Take 1 tablet (4 mg total) by mouth every 8 (eight) hours as needed for nausea. Contact pcp for refills 10 tablet 4 Active Additional Information Patient not taking.Reported on 05/20/2024 ammonium lactate (AMLACTIN) 12 % cream Apply topically daily. 5 Active cholecalciferol (VITAMIN D3) 2,000 unit capsule 2,000 Units daily. Active traMADol-acetami nophen (ULTRACET) 37.5-325 mg per tablet Take 1 tablet by mouth every 4 (four) hours as needed. 5 Active therapeutic multivitamin tablet Take 1 tablet by mouth daily. Active Active Problems Problem Noted Date Diagnosed Date Gluten intolerance 10/29/2023 Assessment & Plan (10/31/2023 1:47 PM EDT): Gluten-free diet ordered Ulcerative colitis 10/29/2023 Assessment & Plan (10/31/2023 1:50 PM EDT): Followed as an outpatient by Dr. Fry. Patient has had near total colectomy in the past with J-pouch/ileal pouch anal anastomosis. Not on medication. 05/2022 had a flex sig, recent outpatient appointment. Diet-controlled diabetes mellitus 10/29/2023 Assessment & Plan (10/31/2023 1:48 PM EDT): Constant carbohydrate diet requested. Glucose normal on morning labs. [id number] glucose monitoring, sliding scale insulin not ordered Small bowel obstruction due to adhesions Assessment & Plan (11/01/2023 1:00 PM EDT): Patient presented 10/28 with abdominal pain, nausea, vomiting, decreased stool output . History of prior colectomy with J-pouch construction 2011. CT abdomen pelvis confirmed a partial small bowel obstruction with no definite transition point. Seen by general surgery in the ED with recommendation for conservative management. Patient was admitted to medicine, with plan for bowel rest with supportive IV fluids, analgesia and antiemetics as needed. Ambulation and mobility encouraged as tolerated. First night patient having flatus and began to pass stool diet advanced to clears yesterday. Yesterday patient said minimal to no abdominal pain on exam great bowel sounds continued to have stool has no nausea vomiting clear liquids diet advanced to low fiber (reviewed with surgery) with usual restrictions low lactose gluten-free Did well until the evening when had some discomfort some nausea. Since resolved, patient not ready to go home If continues to do well discharge tomorrow Despite magnesium borderline low, phosphorus low, patient refused electrolyte supplementation. Would prefer to supplement with diet due to negative reaction to supplemental magnesium in the past. Partial small bowel obstruction 10/29/2023 Hypothyroidism 10/29/2023 Assessment & Plan (10/30/2023 9:51 AM EDT): Home dose of levothyroxine continued, brought from home, patient cannot take generic. TSH notably low 0.04 with free T4 and free T3 within normal limits. Patient adamantly refuses any adjustments to her thyroid medication which is followed closely as an outpatient. Polyarthralgia 09/19/2022 Overview (09/19/2022): Family hx notable for rheumatoid arthritis in mother and sister Assessment & Plan (09/19/2022 10:41 AM EDT): No specific objective evidence of underlying inflammatory arthritis; baseline plain films bl hands given [chronic] puffiness of 2nd/3rd MCPs bl. Unclear current indication for ongoing rheumatology-specific mgmt, particularly if x-rays are unrevealing. Anal polyp 09/28/2021 Overview (09/28/2021): Sessile anal polyps Osteoarthritis of right knee 05/13/2021 Overview (05/13/2021): MRI confirmed Mod-severe OA right PF joint Encouraged pt to consider IA visco supplementation as tx options Unable to have corticosteroid injections F/u with ortho Assessment & Plan (05/13/2021 10:05 AM EST): MRI confirmed Mod-severe OA right PF joint Encouraged pt to consider IA visco supplementation as tx options Unable to have corticosteroid injections F/u with ortho Primary osteoarthritis of right hip 11/17/2020 Assessment & Plan (06/04/2023 9:34 AM EST): Painful and restricted passive range of motion right hip but no recent imaging available for my review today; patient will assist in obtaining relevant records from [facility]. Pattern and distribution of RLE pain c/w l-spine origin versus severe hip joint arthritis. Reviewed with patient again today that she may ultimately require dedicated re-evaluation with spine surgeon vs ortho to discuss BARBARA. Again, no clear current indication for ongoing rheumatology-specific mgmt. Assessment & Plan (11/17/2020 10:31 AM EDT): Previous x-rays of the hips reviewed indicating a mild degree of osteoarthritis bilaterally. Exam and clinical situation makes me think that this has worsened on the right side. We will obtain a new x-ray and I will get back to her by phone call. 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 I do not think I have anything rheumatology-specific to offer her and she would most likely benefit from podiatry f/u. I will review x-rays when they are available. Assessment & Plan (06/25/2019 9:27 AM EDT): Severe advanced involvement with hallux rigidus. Unable to tolerate intra- articular steroids and I would not use topical NSAIDs because of her severe hypertension so we will need to work around this with orthotics and well fitting supportive shoes with plenty of room in the toe box to accommodate her osteophytosis and if necessary referral to foot and ankle orthopedic surgery. Assessment & Plan (02/25/2019 12:28 PM EST): Painful with decreased dorsiflexion and osteophytosis. Well fitting supportive shoes with plenty of room in the toe box to accommodate her osteophytosis as well as instructions for joint mobilization and finally instructions for calling me for an intra-articular cortisone shot if that worsens. I reviewed the x-ray in detail with her indicating narrowing of the first MTP joint with subchondral sclerosis and osteophytosis. History of fusion of cervical spine 02/25/2019 Assessment & Plan (09/19/2022 10:38 AM EDT): Patient has neurosurgery f/u pending. We discussed that I do not manage arthritis in the spine, especially in patients who have required surgery. Assessment & Plan (02/25/2019 12:28 PM EST): Status post cervical fusion doing well postoperatively. Complete resolution of radicular pain into the shoulders. We will follow-up with neurosurgeon. Age related osteoporosis 11/21/2018 Overview (09/19/2022): DEXA 2020 jose T-score -3.1 total hip ? [facility] Profound intolerance to previous zoledronic acid including fever with reported Tmax of 104-105 Assessment & Plan (06/04/2023 9:30 AM EST): Patient will assist in obtaining documentation of 2020 DEXA for my review. She will have updated DEXA done through [facility] in order to facilitate accurate comparison. Will likely require denosumab given h/o significant intolerance to zoledronic acid. Increased fall risk due to antalgic gait. Assessment & Plan (09/19/2022 10:41 AM EDT): Need to track down actual DEXA done at OSH in order to guide tx recommendations and timing of next DEXA; would likely require denosumab if persistent renal insufficiency regardless Assessment & Plan (01/28/2022 1:43 PM EDT): Hx of osteoporosis of the hip. She had a bone densitometry 2020 which showed a T score in the right femoral neck of -2.6 and a total hip T score of -3.1. I agree that treatment for OP is appropriate for patient Oral bisphosphonates contra-indicated with severe refux and GI issues GI is ok with use of IV Reclast But unfortunately pt had significant sided effects Post infusion, I would probably not repeat GI Initially advised against Prolia, but may need to reconsider Continue vit D supplements Last DEXA 2020, will repeat in 2022 Assessment & Plan (10/03/2021 7:05 PM EDT): Hx of osteoporosis of the hip. She had a bone densitometry 2020 which showed a T score in the right femoral neck of -2.6 and a total hip T score of -3.1. Treatment for OP Is appropriate for patient Oral bisphosphonates contra-indicated with severe refux and GI issues GI had advised against Prolia so IV Reclast was prescibed Following first infusion of IV Reclast pt developed low grad temp, arthralgias, dizziness that lasted several days consistent with infusion reaction The risks of IV RECLAST rarely can be associated with infusions reactions . Currently pt has lingering fatigue which I suspect is due to her increased neck pain since her fall. XR of c spine showed mid -mod deg changes but no acute changes Pt should be helpful Pt to continue Ca and Vit D for her OP Would probably avoid Reclast in future Assessment & Plan (07/14/2021 9:27 AM EDT): Hx of osteoporosis of the hip. She had a bone densitometry 2020 which showed a T score in the right femoral neck of -2.6 and a total hip T score of -3.1. I agree that treatment for OP would be appropriate for patient Oral bisphosphonates Contra-indicated with severe refux and GI issues GI has advised against Prolia GI is ok with use of IV Reclast Continue vit D supplements Plan for IV Reclast : The risks and benefits of IV RECLAST were discussed with the patient including infusion reaction, allergic reactions rare eye inflammation, ONJ and atypical femur fractures There may be a small risk of osteonecrosis of the jaw however this adverse event has been reported mainly in patients who took intravenous bisphosphonates in high dose for malignancy and who underwent invasive dental procedures like extractions/implantations (risk < 0.1%). The concern for the development of atypical femur fractures was discussed and seems to relate to long courses of therapy (<0.1% risk). This is a very small risk and the potential benefit of osteoporotic related fracture reduction is much greater. There currently are recommendations to treat with IV Reclast for 3-years followed by a drug holiday for 2-5 years while monitoring dexa. It is not as clear about the duration of therapy after resumption of bisphosphonate therapy following a drug holiday but decreasing BMD would be an indication to resume tx. . The risk for atypical femoral fracture declines by approximately 70% per year thus with a bisphosphonate holiday of 2-5 years substantial decline in risk for AFF should occur. - Discussed Calcium supplementation to be 0239-4920 mg daily in split daily dosing (to include dietary intake) - Vitamin D 1000 -2000 IU daily - Will plan to f/u DXA in 2 years to assess bone mineral density. - Weight bearing exercise encouraged _ Pt had recent Dental exam one month ago-no dental procedure planned . Maintains routine visits 2 x year Assessment & Plan (05/13/2021 10:03 AM EST): Hx of osteoporosis of the hip. She had a bone densitometry 2020 which showed a T score in the right femoral neck of -2.6 and a total hip T score of -3.1. I agree that treatment for OP would be appropriate for patient Oral bisphosphonates Contra-indicated with severe refux and GI issues GI has advised against Prolia I asked pt to discuss possible use of IV Reclast with GI Continue vit D supplements Assessment & Plan (03/09/2021 8:51 AM EST): Hx of osteoporosis of the hip. She had a bone densitometry 2020 which showed a T score in the right femoral neck of -2.6 and a total hip T score of -3.1. I agree that treatment for OP would be appropriate for patient Reviewed tx options, bisphosphonates, Reclast and Prolia. Pt declines treatment at this time Continue vit D supplements Assessment & Plan (12/01/2020 2:05 PM EDT): Patient has osteoporosis of the hip. She had a bone densitometry several weeks ago indicating a T score in the right femoral neck of -2.6 and a total hip T score of -3.1. She cannot tolerate oral bisphosphonates because of severe reflux esophagitis in a patient with ulcerative colitis status post cotto colectomy. After full discussion of risks and benefits and discussing fall and fracture prevention strategies and setting up a blood test to measure her 25 hydroxy vitamin D level, my recommendation is to start on 60 mg of Prolia subcutaneously every 6 months. Risks and benefits were discussed and questions were answered. Assessment & Plan (11/17/2020 10:30 AM EDT): Fall and fracture prevention strategies and compliance with vitamin D3 at 1000 units daily. Previous bone densitometry reviewed. New bone density ordered. Assessment & Plan (10/13/2019 8:55 AM EDT): Bone densitometry is due now. Last bone densitometry was stable with osteoporosis. Will decide on pharmacologic intervention pending my review of this study. I have requested 25-hydroxy vitamin D level. Fall and fracture prevention strategies discussed. Assessment & Plan (06/25/2019 9:26 AM EDT): Bone densitometry reviewed with her in fall and fracture prevention strategies discussed. She will continue on 1000 units of vitamin D3 per day. Bone densitometry next year. Assessment & Plan (02/25/2019 12:29 PM EST): Discussed fall and fracture prevention strategies. Another bone densitometry is ordered. She will continue on vitamin D3 at 1000 units daily. I will call her with the results of the bone density study. Assessment & Plan (11/21/2018 1:49 PM EDT): Bone densitometry was reviewed showing left total femur -3.0 right total femur - 3.2 with mean femur -3.1 T-scores. Compared to previous study in 2015 there has been a significant decline in the dual femur density. Osteopenic values have been obtained in the left forearm. Spinal values are nonreproducible secondary to her surgery. As I explained to her today she is at increased risk for hip fracture. She will start on 600 mg of calcium citrate daily. Before her next visit we will check a 25 hydroxy vitamin D level. We will speak about therapeutic options for pharmacologic intervention including oral bisphosphonates if tolerated, zoledronic acid, or Prolia. Further questions were answered and greater than 50% of this 28-minute visit was spent [id number] conversation with the patient going over the natural history of hip fracture as well as the upcoming procedure for cervical radiculopathy. Cervical spondylosis 03/21/2018 Assessment & Plan (03/08/2021 1:16 PM EST): Hx of cervical spine fusion Pt requests XR today-will order If neck pain /radicular symptoms persists, she will discuss with neurosurgeon. May need advance imaging Assessment & Plan (10/13/2019 8:56 AM EDT): Status post cervical fusion now with new onset of bilateral upper extremity radicular symptoms. We will do CT scan of cervical spine. Send results to neurosurgeon. Advised avoidance of lifting bending or twisting. Medications to remain unchanged. Previous x-ray of cervical spine reviewed showing fusion in place. Assessment & Plan (11/21/2018 1:47 PM EDT): Patient cervical spondylosis with subsequent radiculopathy unresponsive to local treatment including pain medications, local injection therapy, and physical therapy will be treated with surgical intervention within the next month. Assessment & Plan (06/24/2018 10:33 AM EDT): Severe cervical spondylosis without radiculopathy or myelopathy. She will be referred to physical therapy. I reviewed the March 2018 cervical spine x-ray indicating left neuroforaminal narrowing at C6-7 and mild left foraminal narrowing at C3-4 with diffuse facet arthropathy but no spondylolisthesis. Medications will continue unchanged. I also reviewed with her lab work indicating hemoglobin of 13.7 with a hematocrit of 42.4 and a white count of 6800 with a normal differential and a creatinine of 1.1 with a vitamin D level of 39 and an alkaline phosphatase of 96 and an AST of 29 and an ALT of 40. Assessment & Plan (03/21/2018 9:36 AM EST): Severe but no evidence of long track signs or radiculopathy. She will need attention to this after she recovers from surgery. I did recommend physical therapy. We will get a cervical spine x-ray today. Spinal stenosis of lumbar blanca becerra without neurogenic claudication 10/31/2017 Assessment & Plan (12/01/2020 1:39 PM EDT): I reviewed the new MRI of the lumbar spine indicating a new small disc herniation at L1 to and stable lumbar fusion. Certainly in the differential diagnosis a high lumbar radiculopathy into the right upper thigh caused by the L1-2 disc herniation could be at play as could right sacroiliac dysfunction and referred facet arthropathy. A new MRI of the right hip will be done. I reviewed the x-ray of the right and left hip which appeared rather normal and without a clear indication as to why she is having right hip pain. Also in the differential diagnosis would be pain coming from the piriformis muscle. Complicating the treatment would be the fact that she had an untoward reaction of accelerated hypertension after receiving an intra-articular cortisone injection in the past. If the MRI of the right hip shows no evidence of avascular necrosis or femoral acetabular impingement then we should consider a fluoroscopically guided injection of lidocaine into the right piriformis muscle. Referral to physiatry would be necessary. In the meantime I refilled her tramadol and asked her to use heat on the area and I will call her after I review the results. More than 50% of this 33-minute visit was spent in [id number] conversation with the patient coordinating my care with that of the translational specialist and her primary care physician. Assessment & Plan (11/17/2020 10:30 AM EDT): Worsening back pain and what I believed to be neurogenic claudication despite recent neurosurgical intervention. Obtain new MRI scan and follow-up with her by phone call. Assessment & Plan (06/25/2019 9:25 AM EDT): Increase in hip pain may be primary hip osteoarthritis or referred from lower lumbar facet joints. When she is able to come into the office we likely will do a new x-ray of the left hip but I did review the 2018 MRI of the lumbar spine indicating high-grade central canal stenosis at L4-5 and moderately severe lateral recess stenosis on the left side at L2-3. Attention to this area with physical therapy may give her some substantial relief as well. Assessment & Plan (06/24/2018 10:32 AM EDT): Improved dramatically after lumbar laminectomy. Continue home exercise program. Follow-up with neurosurgeon in 6 months. Assessment & Plan (03/21/2018 9:36 AM EST): Patient is anxiously awaiting decompressive laminectomy. We talked about the surgery both risks and benefits and what she may expect afterwards. Assessment & Plan (01/02/2018 9:18 AM EDT): She is being referred to neurosurgery. I reviewed the MRI of the lumbar spine indicating both severe central and bilateral lateral recess stenosis at L4-5 and L5-S1. He has intermittent neurogenic claudication and quite severe back pain. Is failed to respond to trigger point injections, pain medicine and was intolerant of gabapentin. He may be a candidate for radiofrequency ablation or jewelry. We will see what the neurosurgeon has to say. Assessment & Plan (10/31/2017 5:32 PM EDT): I reviewed with her the MRI of the lumbar spine showing severe high-grade stenosis at L4-L5 with both central canal stenosis and left neural foraminal narrowing at this level. Throughout the spine there was diffuse moderate facet arthropathy and discogenic disease without evidence of spondylolisthesis or compression fractures. Because we cannot use corticosteroid injections either by trigger point, orally, or epidurally guided, and she cannot use NSAIDs due to her bowel disease, after full discussion was and benefits I'm starting her on 100 mg of gabapentin twice daily with instructions to increase this to 200 mg twice daily in 2 weeks if well tolerated. She then will call me and we will discuss how she is doing on the medication and whether we should augment the dose or not. We also talked about the possibility of radiofrequency ablation, renewed physical therapy, Cymbalta and Lyrica. Greater than 50% of this 28 minute visit was spent in [id number] conversation with the patient going over her MRI and various approaches to pain control. There is no evidence of neurogenic claudication or lumbar radiculopathy. There is no evidence for sacroiliitis or reactive arthropathy secondary to her bowel disease. Bilateral rotator cuff syndrome 08/23/2017 Assessment & Plan (02/25/2019 12:30 PM EST): Bilateral, right greater than left calcific tendinitis. This is demonstrable on x-ray but in fact most of the shoulder pain has gone away after treating the cervical radiculopathy. Is not really an issue at this point. Assessment & Plan (03/21/2018 9:36 AM EST): Impingement in both shoulders and secondary acromioclavicular osteoarthropathy in the left shoulder. Discussed wall walking and pendulum exercises. She is going back to the orthopedic surgeon who operated on her many years ago. Assessment & Plan (01/02/2018 9:17 AM EDT): Reviewed x-ray of right shoulder showing a calcified mass in the proximal humeral shaft which has been also MRI and looks like a benign lesion. Mild arthritic changes in the glenohumeral and acromioclavicular joints. No evidence of rotator cuff tear. She will continue with physical therapy. Further injection therapy is indicated. Assessment & Plan (08/23/2017 10:48 AM EDT): The most severe problem right now which is causing both nighttime and daytime pain and restricted range of motion of his the impingement in the right shoulder. It does not appear to be and adhesive capsulitisof glenohumeral instability but she does need referral to an orthopedic shoulder expert. Once she left knee and she wants to see at [facility] I will put that referral through. In addition I will review the previous MRI of her lumbar spine done 4-5 years ago. She does not have any signs or symptoms of sciatica, lumbar radiculopathy, or neurogenic claudication. She is in the physical therapy. We talked about core strengthening, weight reduction, well fitting shoes, walking program. I'll decide whether we should do another MRI soon. There is no evidence of inflammatory arthritis or myositis. Patient is not interested in pharmacologic intervention for her fibromyalgia pain at this point. She uses acetaminophen as needed. NSAIDs are relatively contraindicated in this patient with ulcerative colitis. I will also reviewed her last bone densitometry to see she is in need of another one. Fall and fracture prevention strategies and compliance with vitamin D3 to maintain an effective level were discussed today. Lumbar spondylosis 08/23/2017 Assessment & Plan (01/28/2022 1:47 PM EDT): Hx of spinal lumbar fusion L4-5 MRI 2020 lumbar spiine with stable fusion Ongoing back pain Recent XR of lumbar spine with deg changes and retrolisthesis above fusion site Unknown if this will lead to instability , would defer to neurosurgeon to evaluate Pt to f/u with PCP to discuss Assessment & Plan (03/08/2021 1:21 PM EST): S/p fusion MRI L4 -L5 stable fusion New small L1-2 disc herniation and T12 -L1 annular tear Symptomatically doing better with improved pain with PT Pt will still f/u as planned with spine surgeon to discuss MRI results Fibromyalgia 08/23/2017 Overview (01/02/2018): Active but stable. Chronic fatigue, poor sleep, multiple tender points on exam and no synovitis all contribute to this. Vitamin D supplementation was encouraged. Pharmacologic intervention at the present time except for as needed tramadol. Assessment & Plan (10/31/2023 1:48 PM EDT): Stable, chronic fatigue and sleep difficulty, history of multiple tender points on exam, chronic. Does not want to use Vyvanse in the hospital Assessment & Plan (06/24/2018 10:34 AM EDT): As she continues physical therapy and gets better range of motion and we eliminate the pain generators in her neck now that her's lumbar radiculopathy has improved, I feel there will be a continued improvement in her fibromyalgia syndrome. Good sleep hygiene and regular weightbearing exercise as well as a low inflammatory low carbohydrate diet is recommended. Uncoded H/O Prurigo nodularis 05/19/2014 Overview (03/10/2015): H/O Prurigo nodularis Encounters Date Type Department Care Team Description 01/08/2025 Transcribe Orders [facility] Department [address] [place] [address] Sabrina Devine MD Calculus of kidney (Primary Dx) from Last 3 Months Immunizations Immunization Administration Dates Next Due Pneumococcal, Unspecified Formulation 05/22/2014 Family History Medical History Relation Comments Cancer Father 2 Diabetes mellitus Maternal Grandfather 2 CV disease Mother 2 Diabetes mellitus Mother 2 CV disease Paternal Grandfather 2 Relation Status Comments Father 1 Father 2 Maternal Grandfather 1 Maternal Grandfather 2 Mother 1 Mother 2 Paternal Grandfather 1 Paternal Grandfather 2 Social History Tobacco Use Types Packs/Day Years Used Date Smoking Tobacco: Former Cigarettes 1 1974 Smokeless Tobacco: Never Tobacco Cessation:Counseling Given: Not Answered Alcohol Use Standard Drinks/Week Comments No 0 [...] file Not on file Not on file Last Filed Vital Signs Vital Sign Reading Time Taken Comments Blood Pressure 140/73 05/27/2024 11:23 AM EST Pulse 70 05/27/2024 11:23 AM EST Temperature 36.6 C (97.9 F) 05/27/2024 11:08 AM EST Respiratory Rate 16 05/27/2024 11:23 AM EST Oxygen Saturation 98% 05/27/2024 11:23 AM EST Inhaled Oxygen Concentration - - Weight 77.1 kg (170 lb) 08/26/2024 1:20 PM EDT Height 170.2 cm (5' 7 ) 08/26/2024 1:20 PM EDT Body Mass Index 26.63 08/26/2024 1:20 PM EDT Plan of Treatment Upcoming Encounters Date Type Department Care Team ([facility] st Contact Info) Description 02/11/2025 11:00 AM EST Office Visit [facility] [address] [place] [address] Unknown, Unknown, Antonio Rosenthal MD [address] [address] [email or web address] Health Maintenance Due Date Last Done Comments HEMOGLOBIN A1C 1947 DEPRESSION SCREENING 1959 LIPID PANEL 1965 PNEUMOCOCCAL VACCINES (50+ years) (3 of 3 - PCV20 or PCV21) 10/24/2019 10/23/2014, 04/02/2006, 02/09/2000 DIABETIC EYE EXAM 10/29/2023 URINE MICROALBUMIN/CREATININE RATIO 10/29/2023 BLOOD PRESSURE 02/16/2024 08/16/2023 TSH LEVEL 10/28/2024 10/29/2023 INFLUENZA VACCINE (#1) 2024 , 12/18/2022, 12/23/2021, Additional history exists COVID-19 VACCINE ( season) 2024 12/24/2023, 04/18/2023, 01/18/2022, Additional history exists SMOKING Hx and SMOKELESS TOBACCO SCREENING 05/27/2025 05/27/2024 Adult Td,Tdap Booster 01/27/2026 01/28/2016, 013 HEPATITIS C SCREENING Completed 08/12/1999 HEPATITIS A VACCINES Aged Out 05/12/2005, 09/21/19 05 No longer eligible based on patient's age to complete this topic ZOSTER VACCINES Completed 09/02/2018, 06/01, 06/06/2007 RSV VACCINE Completed 01/29/2023 OSTEOPOROSIS SCREENING INITIAL (ONE-TIME) Completed 02/12/2024 HIB VACCINES Aged Out No longer eligi ble based on patient's age to complete this topic MENINGOCOCCAL VACCINES (ACWY) Aged Out No longer eligible based on patient's age to complete this topic MENINGOCOCCAL VACCINES (B) Aged Out N o longer eligible based on patient's age to complete this topic Medical Devices Implanted Type Area Certified Orthoptist Device Identifier Shelf Expiration Date Model / Serial / Lot Lens Lens Bilateral: Eye Neck And Low Back Fusion Procedures Procedure Name Priority Date/Time Associated Diagnosis Comments BD DXA AXIAL (SPINE) WITH HIP Routine 02/12/2024 9:11 AM EST Age-related osteoporosis without current pathological fracture TSH WITH REFLEX Routine 10/29/2023 8:58 AM EDT from Last 3 Months or Most Recently Relevant to Health Maintenance Results * BD DXA AXIAL (SPINE) WITH HIP (02/12/2024 9:11 AM EST) Anatomical Region Laterality Modality Bone Density Bone Density 02/12/2024 9:05 AM EST Impressions 02/12/2024 11:27 AM EST Interpretation: Osteoporosis. Narrative 02/12/2024 11:27 AM EST Referred By: MIMI HARDEN Indications: Osteoporosis Scanner: Baboo A with serial# of [id number] located at [facility] Bone Density Scan (DXA) 02/12/24 Details of prior DXA scans are available by clicking View Image BMD T- Z- Skeletal Site gm/cm2 score score BMD Change Since Prior Scan ------ ----- ----- PA Spine (L1 L2 L3) 1.098 0.70 3.20 N/A Total Hip (Left) 0.678 -2.20 -0.30 N/A Femoral Neck (Left) 0.681 -1.50 0.60 N/A Total Hip (Right) 0.622 -2.60 -0.70 N/A Femoral Neck (Right) 0.696 -1.40 0.80 N/A ------ ----- ----- * Denotes significant change when >= 0.022 g/cm2 for the spine, 0.027 g/cm2 for the total hip, 0.029 g/cm2 for the femoral neck. Interpretation: Osteoporosis. Technical Quality: The PA Spine scan was of marginal quality because of factor(s) specified below. Multilevel degenerative changes with endplate sclerosis can increase BMD. FRAX: A FRAX(r) score is not provided because the patient has osteoporosis, which is generally an indication for treatment. Additional Information: -World Health Organization criteria classify adults based on lowest T-score at PA spine, hip or forearm: Normal (T-score >= -1.0), Osteopenia (T-score between -1 and -2.5), or Osteoporosis (T-score <= -2.5). At [facility], T-scores are compared to peak bone density of a young white gender matched reference population. - For premenopausal women and men under the age of 50, Z-scores (comparison to age, gender, and ethnicity matched reference population) are used: Above expected range for age (Z-score >= 2.0), Within expected range of age (Z-score 1.9 to -1.9), or Below expected range for age (Z-score <= -2.0). - The Bone Health and Osteoporosis Foundation recommends that treatment be considered in men aged more than 50 years and in postmenopausal women with ANY of the following: Prior hip or vertebral fractures; T-score of <= -2.5 at the PA spine or hip; or 10 year fracture probability by FRAX of >= 3% for the hip or >= 20% for major osteoporotic fracture. - The FRAX algorithm (https://www.maggie.ac.uk/FRAX/tool.aspx) is designed to predict 10-year fracture risk in treatment-naive adults between the ages of 40 and 90. It is not intended to be used in those receiving pharmacologic osteoporosis treatment. - Including race/ethnicity in the generation of T- or Z-scores or in the FRAX calculation is complicated, and currently undergoing active review to ensure that we can give patients the best information on their risk of fracture. -Some prior studies may not be compatible with our comparison software. -Click on View Full Report to see subsequent pages with images and prior bone density results. Reviewed By: Gerardo Fonseca on 02/12/2024 11:27:53 Procedure Note Gerardo Fonseca MD - 02/12/2024 Referred By: MIMI HARDEN Indications: Osteoporosis Scanner: Baboo A with serial# of [id number] located at [facility] Bone Density Scan (DXA) 02/12/24 Details of prior DXA scans are available by clicking View Image BMD T- Z- Skeletal Site gm/cm2 score score BMD Change Since Prior Scan ------ ----- PA Spine (L1 L2 L3) 1.098 0.70 3.20 N/A Total Hip (Left) 0.678 -2.20 -0.30 N/A Femoral Neck (Left) 0.681 -1.50 0.60 N/A Total Hip (Right) 0.622 -2.60 -0.70 N/A Femoral Neck (Right) 0.696 -1.40 0.80 N/A ------ ----- * Denotes significant change when >= 0.022 g/cm2 for the spine, 0.027g/cm2 for the total hip, 0.029 g/cm2 for the femoral neck. Interpretation: Osteoporosis. Technical Quality: The PA Spine scan was of marginal quality because of factor(s) specified below. Multilevel degenerative changes with endplate sclerosis can increase BMD. FRAX: A FRAX(r) score is not provided because the patient hasosteoporosis, which is generally an indication for treatment. Additional Information: -World Health Organization criteria classify adults based on lowestT-score at PA spine, hip or forearm: Normal (T-score >= -1.0), Osteopenia (T-score between -1 and -2.5), or Osteoporosis (T-score <= -2.5). At [facility], T-scores are compared to peak bone density of a young white gender matched reference population. - For premenopausal women and men under the age of 50, Z-scores(comparison to age, gender, and ethnicity matched reference population) are used:Above expected range for age (Z-score >= 2.0), Within expected range of age (Z-score 1.9 to -1.9), or Below expected range for age (Z-score <= -2.0). - The Bone Health and Osteoporosis Foundation recommends that treatment be considered in men aged more than 50 years and in postmenopausal women with ANY of the following: Prior hip or vertebral fractures; T-score of <= -2.5 at the PA spine or hip; or 10 year fracture probability by FRAX of >= 3%for the hip or >= 20% for major osteoporotic fracture. - The FRAX algorithm (https://www.maggie.ac.uk/FRAX/tool.aspx) is designed to predict 10-year fracture risk in treatment-naive adultsbetween the ages of 40 and 90. It is not intended to be used in those receiving pharmacologic osteoporosis treatment. - Including race/ethnicity in the generation of T- or Z-scores or in the FRAX calculation is complicated, and currently undergoing active review to ensure that we can give patients the best information on their risk of fracture. -Some prior studies may not be compatible with our comparison software. -Click on View Full Report to see subsequent pages with images and prior bone density results. Reviewed By: Gerardo Fonseca on 02/12/2024 11:27:53 IMPRESSION: Interpretation: Osteoporosis. us Mimi Harden MD, MPH IMG BD BONE DENSITY DEXA Final Result * (ABNORMAL) TSH with reflex (10/29/2023 8:58 AM EDT) TSH 0.04(L) 0.27 - 4.20 uIU/mL [facility] 10/29/2023 8:58 AM EDT 10/29/2023 9:02 AM EDT us Montana Mortensen MD LAB BLOOD ORDERABLES Final Resu lt [facility] [address] [place] [address] from Last 3 Months or Most Recently Relevant to Health Maintenance Insurance MEDICARE PART A & B [facility] MEDICARE SUPPLEMENT MEDICARE PART A & B [facility] [employer] MEDICARE SUPPLEMENT MEDICARE PART A & B [facility] [employer] MEDICARE SUPPLEMENT MEDICARE PART A & B [employer] MEDICARE SUPPLEMENT MEDICARE PART A & B [employer] MEDICARE SUPPLEMENT MEDICARE PART A & B [employer] MEDICARE SUPPLEMENT MEDICARE PART A & B [employer] MEDICARE SUPPLEMENT MEDICARE PART A & B [facility] MEDICARE SUPPLEMENT MEDICARE PART A & B [facility] MEDICARE SUPPLEMENT MEDICARE PART A & B Advance Directives For more information, please contact: [phone] (9AM - 5PM [facility], Sunday-Sunday) * Full Code (Latest Code Status on File) Date Activated Date Inactivated Comments 10/29/2023 12:31 PM Question Answer Comments Code Status Confirmed With: Patient * Full Code Date Activated Date Inactivated Comments 12/12/2021 6:04 AM 10/29/2023 12:31 PM Question Answer Comments Code Status Confirmed With: Patient Care Teams Blocker Heated Metal Forms Relationship Specialty Start Date End Date Gregoria Landis DO [address] [place] [id number] PCP - General Family Medicine 08/23/23 Additional Source Comments The information contained in this document represents components of the legal health record. It is not the complete legal health record.[facility]
--- OUTSIDE RECORDS SUMMARY | 2025-01-19 09:22 | XMS_ITS | Encounter Summary ---
Author Organization [facility] Address [address] [facility] [address] [place] [phone] Phone Care Team Providers Care Mold Shop Supervisor Name Role Phone Gregoria Landis DO Primary Care Provider Encounter Details Date Type Department Care Team (Latest Contact Info) Description 11/06/2023 Transcribe Orders [facility] [address] [place] [address] Erik Landis, OT [address] [place] [phone] [email or web address] Encounter for rehabilitation (Primary Dx) Social History [...] your housing situation today? I have alexandria cevallos 10/29/2023 How many times have you move [...] as food, clothing, or medical care? No 10/29/2023 In the past 12 months have y ou been in a relationship with a person who hurts, threatens, or tries to control you? No 10/29/2023 Are you denied basic needs s uch as food, clothing, or medical care? No 10/29/2023 In the past 12 months have y ou been in a relationship with a person who hurts, threatens, or tries to control you? No 10/29/2023 Comments No Sex and Gender Information Value [...] on file documented as of this encounter Plan of Treatment Upcoming Encounters Date Type Department Care Team (Late st Contact Info) Description 02/11/2025 11:00 AM EST Office Visit [facility] [address] [place] [phone] Unknown, Unknown, Antonio Rosenthal MD [address] [place] [phone] documented as of this encounter Visit Diagnoses Diagnosis Encounter for rehabilitation- Primary documented in this encounter Care Teams Mold Shop Supervisor Relationship Specialty Start Date End Date Gregorai Landis DO [address] [place] [phone] [email or web address] PCP - General Family Medicine 08/23/23 documented as of this encounter Additional Source Comments The information contained in this document represents components of the legal health record. It is not the complete legal health record.[facility]
--- OUTSIDE RECORDS SUMMARY | 2025-01-19 09:22 | XMS_ITS | Encounter Summary ---
Author Organization [facility] Address [address] [place] [phone] Phone Care Team Providers Care Cell Changer Name Role Phone Gregoria Landis DO Primary Care Provider Encounter Details Date Type Department Care Team (Late st Contact Info) Description 10/29/2023 Procedure [facility] Scan - [facility] [address] [place] [address] Social History Tobacco Use Types Packs/Day Years Used Date Smoking Tobacco: Former Cigarettes 0 1974 Smokeless Tobacco: Never Alcohol Use [...] 10/29/2023 12:23 PM Cherrie Ewing RN * [place] Suicide Severity Rating Scale (Screener/Recent Self-Report) Question Answer Date of Assessment Author 1. Wish to be (Past 1 Month) No 10/29/2023 12:23 PM Cherrie Ewing RN 2. Non-Specific Active Suicidal Thoughts (Past 1 Month) No 10/29/2023 12:23 PM Cherrie Ewing RN 6. Suicidal Behavior (Lifetime) No 10/29/2023 12:23 PM Cherrie Ewing RN documented as of this encounter Plan of Treatment Upcoming Encounters Date Type Department Care Team (Late st Contact Info) Description 02/11/2025 11:00 AM EST Office Visit [facility] [address] [place] [address] Unknown, Unknown, Antonio Rosenthal MD [address] [address] documented as of this encounter Visit Diagnoses Not on filedocumented in this encounter Care Teams Cell Changer Relationship Specialty Start Date End Date Gregoria Landis DO [address] [place] [address] PCP - General Family Medicine 08/23/23 documented as of this encounter Additional Source Comments The information contained in this document represents components of the legal health record. It is not the complete legal health record.[facility]
--- OUTSIDE RECORDS SUMMARY | 2025-01-19 09:23 | XMS_ITS | Encounter Summary ---
Author Organization [facility] Address [address] [place] [address] Phone Care Team Providers Care Squad Leader Name Role Phone Lakshmi Louis NP Primary Care Provider [phone] Unknown, Unknown Primary Care Provider Gregoria Sherman DO Primary Care Provider Reason for Referral * MRI/CAT Scan - Closed Specialty Diagnoses / Procedures Referred By Kitty garcia Referred To Contact Radiology Diagnoses Postlaminectomy syndrome, not elsewhere classified Procedures MRI Lumbar Spine [place] Forrest PA Phone: tel: fax: Referral ID Status Reason Start Date Expiration Date Visits Re quested Visits Authorized [id number] Closed 10/13/2022 1 1 Encounter Details Date Type Department Care Team (Latest Contact Info) Description 10/13/2022 Transcribe Orders Virtual Department [address] [place] [address] [place] Forrest PA [address] [place] [address] Postlaminectomy syndrome, not elsewhere classified (Primary Dx) Social History Tobacco Use Types Packs/Day Years Used Date Smoking Tobacco: Former Cigarettes 1 470 - 7078 Smokeless Tobacco: Never Alcohol Use Standard Drinks/Week [...] Description 02/11/2025 11:00 AM EST Office Visit [facility] [address] [place] [address] Unknown, Unknown, Antonio Rosenthal MD [address] [address] [email or web address] documented as of this encounter Results * MRI LUMBAR SPINE (BONE) WITH AND WITHOUT CONTRAST (11/05/2022 7:38 AM EDT) Anatomical Region Laterality Modality L-spine Magnetic Resonan ce 11/07/2022 11:3 4 PM EDT Impressions 11/07/2022 11:42 PM EDT Post surgical changes from L4 posterior hemilaminectomy and L4-5 posterior fusion. Adjacent segment degeneration at L3-4 where diffuse disc bulge, facet arthropathy, and thickening of ligamentum flavum result in severe spinal canal, moderate to severe right, and moderate left neuroforaminal stenoses. Additional spinal canal stenoses, moderate to severe at L2-3 and moderate at L1- 2. Additional neuroforaminal stenoses, moderate to severe left and moderate right at L2-3 and moderate left and mild to moderate right at L1-2. Endplate marrow edema at L2-3 and L3-4, may reflect axial pain generators. Narrative 11/07/2022 11:42 PM EDT MRI LUMBAR SPINE (BONE) WITH AND WITHOUT CONTRAST TECHNIQUE: MRI LUMBAR SPINE (BONE) WITH AND WITHOUT CONTRAST COMPARISON: MRI LUMBAR SPINE (NEURO) WITHOUT CONTRAST ; CT ABDOMEN/PELVIS OUTSIDE (NO INTERPRETATION) ; MRI CHOLANGIOPANCREATOGRAPHY (MRCP) WITH AND WITHOUT CONTRAST FINDINGS: ALIGNMENT: 7 mm L2-3 retrolisthesis. 9 mm L4-5 anterolisthesis. MARROW: Heterogeneous marrow signal. No compression fracture. Unchanged fat-containing lesion in the L1 vertebral body, likely an intraosseous hemangioma. DISCS: Disc desiccation at all levels. Endplate marrow edema at L2-3 and L3-4. CONUS: Normal appearance terminates at L2. PARASPINAL SOFT TISSUES: Multiple bilateral exophytic renal lesions, some of which appear complex and better evaluated on prior MR abdomen 11/12/2021. Moderate posterior paraspinal muscle atrophy. Postsurgical changes from L4 laminectomy and L4-L5 posterior fusion with lori and pedicle screw construct and interbody fusion device. FINDINGS BY LEVEL: T12-L1:Diffuse disc bulge, posterior annular fissure, facet arthropathy, and thickening of ligamentum flavum. No spinal canal or neuroforaminal stenosis. L1-2: Diffuse disc bulge with superimposed right paracentral disc protrusion, slightly increased when compared to 2020, facet arthropathy, and thickening of ligamentum flavum. Moderate spinal canal stenosis. Moderate left and mild to moderate right neuroforaminal stenosis. L2-3: Diffuse disc bulge, posterior disc osteophyte complex, facet arthropathy, and thickening of ligamentum flavum. Moderate to severe spinal canal stenosis. Moderate to severe left and moderate right neuroforaminal stenosis. L3-4: Diffuse disc bulge, facet arthropathy, and thickening of ligamentum flavum. Severe spinal canal stenosis. Moderate to severe right and moderate left neuroforaminal stenosis. L4-5: Posterior decompression. Diffuse disc bulge. No spinal canal or neuroforaminal stenosis. L5-S1: Facet arthropathy. No spinal canal or neuroforaminal stenosis. Procedure Note Ligia Delgado MD - 11/07/2022 MRI LUMBAR SPINE (BONE) WITH AND WITHOUT CONTRAST TECHNIQUE: MRI LUMBAR SPINE (BONE) WITH AND WITHOUT CONTRAST COMPARISON: MRI LUMBAR SPINE (NEURO) WITHOUT CONTRAST ; CTABDOMEN/PELVIS OUTSIDE (NO INTERPRETATION) ; MRICHOLANGIOPANCREATOGRAPHY (MRCP) WITH AND WITHOUT CONTRAST FINDINGS: ALIGNMENT: 7 mm L2-3 retrolisthesis. 9 mm L4-5 anterolisthesis. MARROW: Heterogeneous marrow signal. No compression fracture. Unchangedfat- containing lesion in the L1 vertebral body, likely an intraosseoushemangioma. DISCS: Disc desiccation at all levels. Endplate marrow edema at L2-3 andL3-4. CONUS: Normal appearance terminates at L2. PARASPINAL SOFT TISSUES: Multiple bilateral exophytic renal lesions, someof which appear complex and better evaluated on prior MR abdomen11/12/2021. Moderate posterior paraspinal muscle atrophy. Postsurgicalchanges from L4 laminectomy and L4-L5 posterior fusion with lori andpedicle screw construct and interbody fusion device. FINDINGS BY LEVEL: T12-L1:Diffuse disc bulge, posterior annular fissure, facet arthropathy,and thickening of ligamentum flavum. No spinal canal or neuroforaminalstenosis. L1-2: Diffuse disc bulge with superimposed right paracentral discprotrusion, slightly increased when compared to 2020, facet arthropathy,and thickening of ligamentum flavum. Moderate spinal canal stenosis.Moderate left and mild to moderate right neuroforaminal stenosis. L2-3: Diffuse disc bulge, posterior disc osteophyte complex, facetarthropathy, and thickening of ligamentum flavum. Moderate to severespinal canal stenosis. Moderate to severe left and moderate rightneuroforaminal stenosis. L3-4: Diffuse disc bulge, facet arthropathy, and thickening of ligamentumflavum. Severe spinal canal stenosis. Moderate to severe right andmoderate left neuroforaminal stenosis. L4-5: Posterior decompression. Diffuse disc bulge. No spinal canal orneuroforaminal stenosis. L5-S1: Facet arthropathy. No spinal canal or neuroforaminal stenosis. IMPRESSION: Post surgical changes from L4 posterior hemilaminectomy and L4-5 posteriorfusion. Adjacent segment degeneration at L3-4 where diffuse disc bulge, facetarthropathy, and thickening of ligamentum flavum result in severe spinalcanal, moderate to severe right, and moderate left neuroforaminalstenoses. Additional spinal canal stenoses, moderate to severe at L2-3 and moderateat L1- 2. Additional neuroforaminal stenoses, moderate to severe left and moderateright at L2-3 and moderate left and mild to moderate right at L1-2. Endplate marrow edema at L2-3 and L3-4, may reflect axial paingenerators. [facility] CONN IMG MR XSPECIALTY Final Res ult documented in this encounter Visit Diagnoses Diagnosis Postlaminectomy syndrome, not elsewhere classified- Primary Postlaminectomy syndrome, not elsewhere classified documented in this encounter Care Teams Squad Leader Relationship Specialty Start Date End Date Lakshmi Louis NP PCP - General Family Medicine 11/21/21 08/15/23 Unknown, Unknown, PCP - General 08/16/23 08/22/23 Gregoria Landis DO [address] [place] [id number] [email or web address] PCP - General Family Medicine 08/23/23 documented as of this encounter Additional Source Comments The information contained in this document represents components of the legal health record. It is not the complete legal health record.[facility]
--- OUTSIDE RECORDS SUMMARY | 2025-01-19 09:23 | XMS_ITS | Encounter Summary ---
Author Organization [facility] Address [address] [facility] [address] [place] [phone] Phone Care Team Providers Care Ncr Operator Name Role Phone Boby Gregoria Lynn MCDONNELL Primary Care Provider [phone] Encounter Details Date Type Department Care Team (Late st Contact Info) Description 10/03/2023 Procedure Pass [facility] [address] [place] [address] Social History Tobacco Use Types Packs/Day Years [...] Upcoming Encounters Date Type Department Care Team ([facility] st Contact Info) Description 02/11/2025 11:00 AM EST Office Visit [facility] [address] [place] [address] Unknown, Unknown, Antonio Rosenthal MD [address] [address] documented as of this encounter Visit Diagnoses Not on filedocumented in this encounter Care Teams Ncr Operator Relationship Specialty Start Date End Date Gregoria Landis DO [address] [place] [address] PCP - General Family Medicine 08/23/23 documented as of this encounter Additional Source Comments The information contained in this document represents components of the legal health record. It is not the complete legal health record.[facility]
--- OUTSIDE RECORDS SUMMARY | 2025-01-19 09:24 | XMS_ITS | Encounter Summary ---
Author Organization [facility] Address [address] [facility] [address] [place] [phone] Phone Care Team Providers Care Bid Analyst Name Role Phone Marcos Johnson MD Primary Care Prov ider Lakshmi Louis MANAGER SOCIAL WORK Primary Care Provider [phone] Lakshmi Louis MANAGER SOCIAL WORK Primary Care Provider [phone] Unknown, Unknown Primary Care Provider Gregoria Sherman DO Primary Care Provider Encounter Details Date Type Department Care Team (Late st Contact Info) Description 10/16/2017 Ancillary Orders Virtual Department [address] [place] [address] Marlene Tello MD [address] [place] [phone] [email or web address] Cyst of kidney, acquired Social History Tobacco Use Types Packs/Day Years [...] Description 02/11/2025 11:00 AM EST Office Visit [facility] 10 [place] [address] Unknown, Unknown, Antonio Rosenthal MD [address] [address] [email or web address] documented as of this encounter Results * US Kidneys and Bladder (10/19/2017 1:43 PM EDT) Anatomical Region Laterality Modality Abdomen, Kidney Ultrasound 10/19/2017 2:11 PM EDT Impressions 10/19/2017 2:35 PM EDT No renal mass or new complex left-sided renal cyst apparent. Chronic complex right lower pole cyst without worrisome change with additional bilateral simple cysts and non-obstructing right lower pole calculus. Approximate 5% post void residual bladder volume. POS [id number] Narrative 10/19/2017 2:35 PM EDT COMPARISON: 10/17/2016 ultrasound and 10/01/2017 CT. FINDINGS: Right kidney is currently measured 12.2 x 5.4 cm and the left kidney 10.3 x 6.2 cm in a longitudinal plane. On the right no hydronephrosis or mass lesions are identified. There is a 4.1 x 2.6 x 4.5 cm cyst in the upper pole (previously 4.1 x 3.3 x 3.9 cm, 1.0 x 0.6 x 0.7 cm in the lateral upper pole (previously 0.8 x 0.7 x 0.9 cm), a 1.3 x 0.9 x 1.6 cm cyst lower pole not seen previously, and a 1.5 x 1.0 x 1.1 cm cyst in the lower pole (previously 1.4 x 0.9 x 1.2 cm). This cyst has a peripheral echogenic focus measuring 7 x 6 mm (previously 9 x 7 mm). There is also a 4 mm calculus in the lower pole. In the left kidney there are three cysts demonstrated measuring 1.3 x 0.9 x 1.1 cm in the upper pole and 1.1 x 1.1 x 0.9 cm in the upper pole which are difficult to adequately compare with the prior ultrasound, and 9 x 6 x 8 mm cyst in the lower pole which was not seen previously. No solid mass or shadowing calculi apparent. The pre-void bladder measured 405 cc and post-void bladder 22 cc consistent with an approximate 5% residual volume. Ureteral jets were not visualized. No intravesicular mass apparent. Procedure Note Edwardo Deshpande MD - 10/19/2017 COMPARISON: 10/17/2016 ultrasound and 10/01/2017 CT. FINDINGS: Right kidney is currently measured 12.2 x 5.4 cm and the left kidney 10.3x 6.2 cm in a longitudinal plane. On the right no hydronephrosis or mass lesions are identified. There is a4.1 x 2.6 x 4.5 cm cyst in the upper pole (previously 4.1 x 3.3 x 3.9 cm,1.0 x 0.6 x 0.7 cm in the lateral upper pole (previously 0.8 x 0.7 x 0.9cm), a 1.3 x 0.9 x 1.6 cm cyst lower pole not seen previously, and a 1.5 x1.0 x 1.1 cm cyst in the lower pole (previously 1.4 x 0.9 x 1.2 cm). Thiscyst has a peripheral echogenic focus measuring 7 x 6 mm (previously 9 x 7mm). There is also a 4 mm calculus in the lower pole. In the left kidney there are three cysts demonstrated measuring 1.3 x 0.9x 1.1 cm in the upper pole and 1.1 x 1.1 x 0.9 cm in the upper pole whichare difficult to adequately compare with the prior ultrasound, and 9 x 6 x8 mm cyst in the lower pole which was not seen previously. No solid massor shadowing calculi apparent. The pre-void bladder measured 405 cc and post-void bladder 22 ccconsistent with an approximate 5% residual volume. Ureteral jets were notvisualized. No intravesicular mass apparent. IMPRESSION: No renal mass or new complex left-sided renal cyst apparent. Chroniccomplex right lower pole cyst without worrisome change with additionalbilateral simple cysts and non-obstructing right lower pole calculus.Approximate 5% post void residual bladder volume. POS [id number] us Marlene Tello MD IM US RENAL Final Resu lt documented in this encounter Visit Diagnoses Diagnosis Cyst of kidney, acquired Acquired cyst of kidney Cyst of kidney, acquired Acquired cyst of kidney documented in this encounter Additional Health Concerns Infection Onset Date Last Indicated Resolved Time CoV-Risk 01/28/2020 01/29/2020 02/11/2020 1:24 AM EST documented as of this encounter Care Teams Bid Analyst Relationship Specialty Start Date End Date Marcos Johnson MD PCP - General 01/24/17 Lakshmi Louis NP PCP - General Family Medicine 02/18/19 11/20/21 Lakshmi Louis MANAGER SOCIAL WORK PCP - General Family Medicine 11/21/21 08/15/23 Unknown, Dylan, PCP - General 08/16/23 08/22/23 Gregoria Landis DO [address] [place] [id number] PCP - General Family Medicine 08/23/23 documented as of this encounter Additional Source Comments The information contained in this document represents components of the legal health record. It is not the complete legal health record.[facility]
--- OUTSIDE RECORDS SUMMARY | 2025-01-19 09:24 | XMS_ITS | Encounter Summary ---
Author Organization [facility] Address [address] [facility] [address] [place] [address] Phone Care Team Providers Care Manual Plate Filler Name Role Phone Lakshmi Louis NP Primary Care Provider [phone] Unknown, Unknown Primary Care Provider Gregoria Sherman DO Primary Care Provider Encounter Details Date Type Department Care Team (Late st Contact Info) Description 10/13/2022 Procedure Pass [facility], [address] [address] Social History Tobacco Use Types Packs/Day Years [...] [facility] [address] [place] [address] Unknown, Unknown, Antonio Rosenthal MD [address] [address] [email or web address] documented as of this encounter Visit Diagnoses Not on filedocumented in this encounter Care Teams Manual Plate Filler Relationship Specialty Start Date End Date Lakshmi Louis NP PCP - General Family Medicine 11/21/21 08/15/23 Unknown, Unknown, PCP - General 08/16/23 08/22/23 Gregoria Landis DO [address] [place] [id number] PCP - General Family Medicine 08/23/23 documented as of this encounter Additional Source Comments The information contained in this document represents components of the legal health record. It is not the complete legal health record.[facility]
--- OUTSIDE RECORDS SUMMARY | 2025-01-19 09:24 | XMS_ITS | Encounter Summary ---
Author Organization [facility] Address [address] [facility] [address] [place] [address] Phone Care Team Providers Care Doweling Machine Operator Name Role Phone Gregoria Landis DO Primary Care Provider Reason for Referral * MRI/CAT Scan - Closed Specialty Diagnoses / Procedures Referred By Contac t Referred To Contact Radiology Diagnoses Neck pain Numbness Cervical spinal stenosis Procedures MRI Cervical Spine Babatunde Carvalho MD [address] [place] [address], [address] [place] [address] Phone: tel: fax: [email or web address] Referral ID Status Reason Start Date Expiration Date Visits Re quested Visits Authorized [id number] Closed 08/01/2024 08/01/2025 1 1 Encounter Details Date Type Department Care Team (Latest Contact Info) Description 08/01/2024 Transcribe Orders Virtual Department [address] [place] [address] Babatunde Carvalho MD [address] [place] [address], [address] [place] [address] [phone] [email or web address] Neck pain (Primary Dx); Numbness; Cervical spinal stenosis Social History Tobacco Use Types Packs/Day Years Used Date Smoking Tobacco: Former Cigarettes 1 0 1974 Smokeless Tobacco: Never Alcohol Use Standard Drinks/Week Comments No 0 (1 standard drink = 0.6 oz pur e alcohol) Education Answer Date Recorded Are you interested in more education? Not on apdma e 07/29/2022 Are you concerned about learning? [...] Description 02/11/2025 11:00 AM EST Office Visit [facility] 10 [place] [address] Unknown, Unknown, Antonio Rosenthal MD [address] [address] [email or web address] documented as of this encounter Results * MRI CERVICAL SPINE (NEURO) FOCUS WITHOUT CONTRAST (08/30/2024 9:13 AM EDT) MGB IMG EDUCATION ASSISTANT COMMENT see report [facility] Anatomical Region Laterality Modality C-spine Magnetic Resonan ce 09/03/2024 10:2 7 AM EDT Impressions 09/03/2024 10:36 AM EDT 1. Status post anterior discectomy and fusion at C5-C6. 2. C4-C5 new right paracentral disc extrusion indenting the right ventral cord, with moderate canal stenosis, slightly progressed. 3. C6-C7 disc/osteophyte complex with severe canal stenosis, unchanged. 4. Other extensive degenerative changes, as above, with multilevel foramina stenosis, as above. 5. Possible asymmetric soft tissue fullness in the right glossotonsillar region, amenable to direct inspection, or ENT consultation. A clinically significant result was initiated on 09/03/2024 10:36 AM, Message ID [id number]. Narrative 09/03/2024 10:36 AM EDT MRI CERVICAL SPINE (NEURO) FOCUS WITHOUT CONTRAST Referring clinician's provided indication for this examination in Epic: Outside Radiology Order; neck pain TECHNIQUE: MRI CERVICAL SPINE (NEURO) FOCUS WITHOUT CONTRAST Multi-sequence, multi-planar MRI of the cervical spine was performed without intravenous contrast. COMPARISON: Cervical spine CT September 10, 2022. FINDINGS: CERVICAL SPINE: Alignment and Vertebrae: Patient status post anterior fusion at C5-C6. The alignment is grossly stable. There is mild anterolisthesis at C7-T1, unchanged. Vertebral body height is well-maintained. No compression fracture. Marrow: No worrisome bone marrow replacing lesion. Discs and Endplates: There is moderate loss of disc height at C6-C7 and mild at C7-T1, stable. Spinal Cord: There is mild flattening of the ventral contour of the cord at C4- C5, probably slightly progressed. There is also flattening of the cord at C6-C7, unchanged. No gross signal abnormality identified in the cord. Soft Tissue: No prevertebral edema. Posterior paraspinal soft tissues are unremarkable. Other findings: Possible asymmetric soft tissue fullness in the right glossotonsillar region, amenable to direct inspection. Few scattered small lymph nodes noted in the neck, without significant change or enlargement by size criteria. Findings by level: C2-C3: There is mild right facet joint arthropathy. No spinal canal stenosis. Mild right foraminal stenosis. C3-C4: Mild disc bulge and uncovertebral arthropathy. Facet hypertrophy noted. There is mild spinal canal stenosis, unchanged. Moderate foraminal stenosis. C4-C5: There is a disc bulge with a left paracentral protrusion which appears slightly more prominent in this exam. In addition, there is a new right paracentral disc extrusion indenting the right ventral cord (6 8:26). There is mild flattening of the cord contour and there is effacement of the CSF, slightly progressed from previous exam with moderate spinal canal stenosis. Uncovertebral arthropathy and facet joint hypertrophy noted predominantly on the left with severe left and moderate right foraminal stenosis. C5-C6: Status post anterior discectomy and fusion. No high-grade spinal or foraminal stenosis. C6-C7: Disc/osteophyte complex. Right paracentral component appears more prominent in this exam. There is severe canal stenosis, unchanged. There is complete effacement of the CSF and flattening of the ventral and dorsal contours of the cord, stable. Additional uncovertebral arthropathy and facet joint disease noted with stable moderate to severe foraminal stenosis. C7-T1: Mild disc bulge. Facet joint hypertrophy and ligamentum flavum thickening. Mild spinal canal stenosis. Moderate left and mild right foraminal stenosis. T1-T2: Disc bulge and posterior osteophytic ridging. Facet hypertrophy and ligamentum flavum thickening. Mild to moderate spinal canal stenosis. Moderate right and oyyb-au-xwesoxes left foraminal stenosis. Procedure Note Tori Mota MD - 09/03/2024 MRI CERVICAL SPINE (NEURO) FOCUS WITHOUT CONTRAST Referring clinician's provided indication for this examination in Epic:Outside Radiology Order; neck pain TECHNIQUE: MRI CERVICAL SPINE (NEURO) FOCUS WITHOUT CONTRAST Multi-sequence, multi-planar MRI of the cervical spine was performedwithout intravenous contrast. COMPARISON: Cervical spine CT September 10, 2022. FINDINGS: CERVICAL SPINE: Alignment and Vertebrae: Patient status post anterior fusion at C5-C6. Thealignment is grossly stable. There is mild anterolisthesis at C7-T1,unchanged. Vertebral body height is well-maintained. No compressionfracture. Marrow: No worrisome bone marrow replacing lesion. Discs and Endplates: There is moderate loss of disc height at C6-C7 andmild at C7-T1, stable. Spinal Cord: There is mild flattening of the ventral contour of the cordat C4- C5, probably slightly progressed. There is also flattening of thecord at C6-C7, unchanged. No gross signal abnormality identified in thecord. Soft Tissue: No prevertebral edema. Posterior paraspinal soft tissues areunremarkable. Other findings: Possible asymmetric soft tissue fullness in the rightglossotonsillar region, amenable to direct inspection. Few scattered smalllymph nodes noted in the neck, without significant change or enlargementby size criteria. Findings by level: C2-C3: There is mild right facet joint arthropathy. No spinal canalstenosis. Mild right foraminal stenosis. C3-C4: Mild disc bulge and uncovertebral arthropathy. Facet hypertrophynoted. There is mild spinal canal stenosis, unchanged. Moderate foraminalstenosis. C4-C5: There is a disc bulge with a left paracentral protrusion whichappears slightly more prominent in this exam. In addition, there is a newright paracentral disc extrusion indenting the right ventral cord (68:26). There is mild flattening of the cord contour and there iseffacement of the CSF, slightly progressed from previous exam withmoderate spinal canal stenosis. Uncovertebral arthropathy and facet jointhypertrophy noted predominantly on the left with severe left and moderateright foraminal stenosis. C5-C6: Status post anterior discectomy and fusion. No high-grade spinal orforaminal stenosis. C6-C7: Disc/osteophyte complex. Right paracentral component appears moreprominent in this exam. There is severe canal stenosis, unchanged. Thereis complete effacement of the CSF and flattening of the ventral and dorsalcontours of the cord, stable. Additional uncovertebral arthropathy andfacet joint disease noted with stable moderate to severe foraminalstenosis. C7-T1: Mild disc bulge. Facet joint hypertrophy and ligamentum flavumthickening. Mild spinal canal stenosis. Moderate left and mild rightforaminal stenosis. T1-T2: Disc bulge and posterior osteophytic ridging. Facet hypertrophy andligamentum flavum thickening. Mild to moderate spinal canal stenosis.Moderate right and alst-gt-kifljzgj left foraminal stenosis. IMPRESSION: 1. Status post anterior discectomy and fusion at C5-C6. 2. C4-C5 new right paracentral disc extrusion indenting the right ventralcord, with moderate canal stenosis, slightly progressed. 3. C6-C7 disc/osteophyte complex with severe canal stenosis, unchanged. 4. Other extensive degenerative changes, as above, with multilevelforamina stenosis, as above. 5. Possible asymmetric soft tissue fullness in the right glossotonsillarregion, amenable to direct inspection, or ENT consultation. A clinically significant result was initiated on 09/03/2024 10:36 AM,Message ID [id number]. Babatunde Carvalho MD IMG MR XSPECIALTY Final Resu lt documented in this encounter Visit Diagnoses Diagnosis Neck pain- Primary Cervicalgia Numbness Disturbance of skin sensation Cervical spinal stenosis Spinal stenosis in cervical region Neck pain Cervicalgia Numbness Disturbance of skin sensation Cervical spinal stenosis Spinal stenosis in cervical region documented in this encounter Care Teams Doweling Machine Operator Relationship Specialty Start Date End Date Gregoria Landis DO [address] [place] [id number] PCP - General Family Medicine 08/23/23 documented as of this encounter Additional Source Comments The information contained in this document represents components of the legal health record. It is not the complete legal health record.[facility]
--- OUTSIDE RECORDS SUMMARY | 2025-01-19 09:25 | XMS_ITS | Encounter Summary ---
Author Organization [facility] Address [address] [facility] [address] [place] [address] Phone Care Team Providers Care Automotive Electrician Helper Name Role Phone Marcos Johnson MD Primary Care Prov ider Lakshmi Louis PERSONAL TRAINER Primary Care Provider [phone] Lakshmi Louis PERSONAL TRAINER Primary Care Provider [phone] Unknown, Unknown Primary Care Provider Gregoria Sherman DO Primary Care Provider Encounter Details Date Type Department Care Team (Latest Contact Info) Description 01/18/2018 Transcribe Orders [facility] 10 [facility] 2nd [place] [address] Marlene Tello MD [address] [address] [email or web address] Calculus of kidney (Primary Dx) Social History [...] Visit [facility] 10 [place] [address] Unknown, Unknown, Antonio Rosenthal MD 10 [facility]. [facility] 2 [place] [address] [email or web address] documented as of this encounter Results * Creatinine, 24 hr urine (01/18/2018 10:46 AM EDT) URINE CREATININE 163 mg/dL [facility] CREATININE OUTPUT 1,304 600 - 1,800 mg/total output [facility] Urine (Urine) 01/18/2018 10: 46 AM EDT 01/18/2018 11:40 AM EDT us Marlene Tello MD URINE ORDERABLES Final Res ult [facility] [address] [place] [address] * Citrate, 24 hr urine (01/18/2018 10:46 AM EDT) UR TIMED CITRATE 550 mg/24 h [facility] DPT OF LAB MED AND PAT+ Comment: (NOTE) REFERENCE VALUE Reference values have not been established for patients who are >60 years of age. ADDITIONAL INFORMATION This test was developed and its performance characteristics determined by [facility] in a manner consistent with CLIA requirements. This test has not been cleared or approved by the U.S. Food and Drug Administration. UR RANDOM CITRATE 68.7 mg/dL [facility] DPT OF LAB MED AND PAT+ TOTAL VOLUME 800 mL [facility] DPT OF LAB MED AND PAT+ COLLECTION DURATION 24 h [facility] DPT OF LAB MED AND PAT+ Urine (Urine) 01/18/2018 10: 46 AM EDT 01/18/2018 11:41 AM EDT us Marlene Tello MD URINE ORDERABLES Final Res ult [facility] DPT OF LAB MED AND PAT+ [address] [place] [address] * Uric acid, 24 hr urine (01/18/2018 10:46 AM EDT) URINE URIC ACID 39.8 mg/dL [facility] Uric Acid, Timed Urine 318.4 250 - 750 mg/total output [facility] Urine (Urine) 01/18/2018 10: 46 AM EDT 01/18/2018 11:40 AM EDT us Marlene Tello MD URINE ORDERABLES Final Res ult Performing Organization Address City/[facility]/ZIP Co de Phone Number [facility] [address] [place] [address] * Oxalate, 24 hr urine (01/18/2018 10:46 AM EDT) UR TIMED OXALATE 16.7 9.7 - 40.5 mg/24 h [facility] DPT OF LAB MED AND PAT+ UR RANDOM OXALATE 21.1 mg/L [facility] DPT OF LAB MED AND PAT+ TOTAL VOLUME 800 mL [facility] DPT OF LAB MED AND PAT+ COLLECTION DURATION 24 h [facility] DPT OF LAB MED AND PAT+ Urine (Urine) 01/18/2018 10: 46 AM EDT 01/18/2018 11:41 AM EDT us Marlene Tello MD URINE ORDERABLES Final Res ult [facility] DPT OF LAB MED AND PAT+ [address] [place] [address] * Sodium, 24 hr urine (01/18/2018 10:46 AM EDT) URINE SODIUM <20 mmol/L [facility] SODIUM OUTPUT NOT CALCULATED 40 - 220 mmol/total output [facility] Urine (Urine) 01/18/2018 10: 46 AM EDT 01/18/2018 11:40 AM EDT Marlene Tello MD URINE ORDERABLES Final Res ult Performing Organization Address [facility]/ZIP Co de Phone Number [facility] [address] [place] [address] * Magnesium, 24 hr urine (01/18/2018 10:46 AM EDT) Magnesium, 24 Hr, U 64 51 - 269 mg/24 h [facility] DPT OF LAB MED AND PAT+ Comment: (NOTE) ADDITIONAL INFORMATION This test has been modified from the broke man's instructions. Its performance characteristics were determined by [facility] in a manner consistent with CLIA requirements. This test has not been cleared or approved by the U.S. Food and Drug Administration. Magnesium collection duration& 24 h [facility] DPT OF LAB MED AND PAT+ Magnesium urine volume 800 mL [facility] DPT OF LAB MED AND PAT+ Magnesium concentration 8 mg/dL [facility] DPT OF LAB MED AND PAT+ Urine (Urine) 01/18/2018 10: 46 AM EDT 01/18/2018 11:41 AM EDT us Marlene Tello MD URINE ORDERABLES Final Res ult Performing Organization Address City/[facility]/ZIP Co de Phone Number [facility] DPT OF LAB MED AND PAT+ [address] [place] [address] * Phosphorus, 24 hr urine (01/18/2018 10:46 AM EDT) URINE PHOSPHORUS 86.9 mg/dL [facility] PHOSPHORUS OUTPUT 695.2 400 - 1,300 mg/total output [facility] Urine (Urine) 01/18/2018 10: 46 AM EDT 01/18/2018 11:40 AM EDT us Marlene Tello MD URINE ORDERABLES Final Res ult Performing Organization Address [facility] Co de Phone Number [address] [address] * Calcium, 24 hour urine (01/18/2018 10:46 AM EDT) URINE CALCIUM 15.0 mg/dL [facility] CALCIUM OUTPUT 120 100 - 300 mg/total output [facility] Urine (Urine) 01/18/2018 10: 46 AM EDT 01/18/2018 11:40 AM EDT us Marlene Tello MD URINE ORDERABLES Final Res ult Performing Organization Address [facility] Co de Phone Number [address] [address] * Parathyroid hormone (PTH) (01/18/2018 10:25 AM EDT) PARATHYROID HORMONE 47 15 - 65 pg/mL [facility] Blood 01/18/2018 10:2 5 AM EDT 01/18/2018 4:42 PM EDT us Marlene eTllo MD LAB BLOOD ORDERABLES Final Result Performing Organization Address [facility] Co de Phone Number [address] [address] * Magnesium (01/18/2018 10:25 AM EDT) MAGNESIUM 2.0 1.6 - 2.6 mg/dL [facility] Blood 01/18/2018 10:2 5 AM EDT 01/18/2018 4:34 PM EDT us Marlene Tello MD LAB BLOOD ORDERABLES Final Result [address] [address] * Phosphorus (01/18/2018 10:25 AM EDT) PHOSPHORUS 2.8 2.7 - 4.5 mg/dL [facility] Blood 01/18/2018 10:2 5 AM EDT 01/18/2018 4:34 PM EDT us Marlene Tello MD LAB BLOOD ORDERABLES Final Result Performing Organization Address [facility]/ZIP Co de Phone Number [address] [address] * Uric acid (01/18/2018 10:25 AM EDT) URIC ACID 7.0 2.4 - 7.0 mg/dL [facility] Blood 01/18/2018 10:2 5 AM EDT 01/18/2018 4:34 PM EDT us Marlene Tello MD LAB BLOOD ORDERABLES Final Result Performing Organization Address [facility]/ZIP Co de Phone Number [address] [address] * Calcium (01/18/2018 10:25 AM EDT) CALCIUM 9.4 8.4 - 10.3 mg/dL [facility] Blood 01/18/2018 10:2 5 AM EDT 01/18/2018 4:34 PM EDT us Marlene Tello MD LAB BLOOD ORDERABLES Final Result [address] [address] * Creatinine/eGFR (01/18/2018 10:25 AM EDT) CREATININE 0.90 0.5 - 1.5 mg/dL [facility] EGFR 65 >59 mL/min/1.7 3m2 [facility] Comment:If patient is black, multiply result by 1.159. Estimated glomerular filtration rate calculated using the CKD-EPI equation. Blood 01/18/2018 10:2 5 AM EDT 01/18/2018 4:34 PM EDT Marlene Tello MD LAB BLOOD ORDERABLES Final Result [address] [address] * BUN (01/18/2018 10:25 AM EDT) BUN 15 6 - 19 mg/dL [facility] Blood 01/18/2018 10:2 5 AM EDT 01/18/2018 4:34 PM EDT Marlene Tello MD LAB BLOOD ORDERABLES Final Result Performing Organization Address [facility]/ZIP Co de Phone Number [address] [address] * Electrolytes (01/18/2018 10:25 AM EDT) SODIUM 140 133 - 146 mmol/L [facility] POTASSIUM 4.3 3.3 - 5.1 mmol/L [facility] CHLORIDE 101 96 - 108 mmol/L [facility] CO2 27 21 - 35 mmol/L [facility] ANION GAP 16 10 - 20 mmol/L [facility] Blood 01/18/2018 10:2 5 AM EDT 01/18/2018 4:34 PM EDT Marlene Tello MD LAB BLOOD ORDERABLES Final Result Performing Organization Address City/[facility]/ZIP Co de Phone Number [address] [address] documented in this encounter Visit Diagnoses Diagnosis Calculus of kidney- Primary documented in this encounter Additional Health Concerns Infection Onset Date Last Indicated Resolved Time CoV-Risk 01/28/2020 01/29/2020 02/11/2020 1:24 AM EST documented as of this encounter Care Teams Automotive Electrician Helper Relationship Specialty Start Date End Date Marcos Johnson MD PCP - General 01/24/17 Lakshmi Louis PERSONAL TRAINER PCP - General Family Medicine 02/18/19 11/20/21 Lakshmi Louis NP PCP - General Family Medicine 11/21/21 08/15/23 Unknown, Dylan, PCP - General 08/16/23 08/22/23 Gregoria Landis DO [address] [place] [address] PCP - General Family Medicine 08/23/23 documented as of this encounter Additional Source Comments The information contained in this document represents components of the legal health record. It is not the complete legal health record.[facility]
--- OUTSIDE RECORDS SUMMARY | 2025-01-19 09:25 | XMS_ITS | Encounter Summary ---
Author Organization [facility] Address [address] [facility] [address] [place] [address] Phone Care Team Providers Care Records Technician Name Role Phone Gregoria Landis DO Primary Care Provider [phone] Encounter Details Date Type Department Care Team (Late st Contact Info) Description 08/01/2024 Procedure Pass [facility], [facility] [address] [place] [address] Social History Tobacco Use Types Packs/Day Years [...] Upcoming Encounters Date Type Department Care Team ([facility] Contact Info) Description 02/11/2025 11:00 AM EST Office Visit [facility] [address] [place] [address] Unknown, Unknown, Antonio Rosenthal MD [address] [place] [address] documented as of this encounter Visit Diagnoses Not on filedocumented in this encounter Care Teams Records Technician Relationship Specialty Start Date End Date Gregoria Landis DO [address] [place] [address] [email or web address] PCP - General Family Medicine 08/23/23 documented as of this encounter Additional Source Comments The information contained in this document represents components of the legal health record. It is not the complete legal health record.[facility]
--- OUTSIDE RECORDS SUMMARY | 2025-01-19 09:25 | XMS_ITS | Encounter Summary ---
Author Organization [facility] Address [address] [place] [address] Phone Care Team Providers Care Director Of Materials Name Role Phone Gregoria Landis DO Primary Care Provider Encounter Details Date Type Department Care Team (Late st Contact Info) Description 05/14/2024 Procedure Pass [facility], [facility] Scan - [facility] [address] [place] [address] Social History Tobacco Use Types Packs/Day Years [...] Upcoming Encounters Date Type Department Care Team ([facility] Contact Info) Description 02/11/2025 11:00 AM EST Office Visit [facility] [address] [place] [address] Unknown, Unknown, Antonio Rosenthal MD [address] [place] [address] documented as of this encounter Visit Diagnoses Not on filedocumented in this encounter Care Teams Director Of Materials Relationship Specialty Start Date End Date Gregoria Landis DO [address] [place] [address] [email or web address] PCP - General Family Medicine 08/23/23 documented as of this encounter Additional Source Comments The information contained in this document represents components of the legal health record. It is not the complete legal health record.[facility]
--- OUTSIDE RECORDS SUMMARY | 2025-01-19 09:26 | XMS_ITS | Encounter Summary ---
Author Organization [facility] Address [address] [place] [address] Phone Care Team Providers Care Chief Of Harbor Patrol Name Role Phone Lakshmi Louis NP Primary Care Provider [phone] Unknown, Unknown Primary Care Provider Gregoria Sherman DO Primary Care Provider [phone] Reason for Referral * MRI/CAT Scan - Closed Specialty Diagnoses / Procedures Referred By Kitty garcia Referred To Contact Radiology Diagnoses Calculus of kidney Procedures CT Abdomen/Pelvis Marlene Tello MD Phone: tel: fax: [email or web address] Referral ID Status Reason Start Date Expiration Date Visits Re quested Visits Authorized [id number] Closed 05/17/2023 1 1 Encounter Details Date Type Department Care Team (Latest Contact Info) Description 05/17/2023 Transcribe Orders Virtual Department [address] [place] [address] Marlene Tello MD [address] [place] [phone] [email or web address] Calculus of kidney (Primary Dx) Social History [...] AM EST Office Visit [facility] 10 [place] [address] Unknown, Unknown, Antonio Rosenthal MD [address] [place] [address] [email or web address] documented as of this encounter Results * CT ABDOMEN/PELVIS (KIDNEY STONE) WITHOUT CONTRAST (06/08/2023 8:27 AM EST) Anatomical Region Laterality Modality Abdomen, Pelvis Computed Tomogra phy 06/09/2023 6:29 AM EST Impressions 06/10/2023 6:43 AM EDT Sub-2 mm nonobstructing bilateral renal stones. No hydronephrosis or ureteral stone. Narrative 06/10/2023 6:[address] ABDOMEN/PELVIS (KIDNEY STONE) WITHOUT CONTRAST Referring clinician's provided indication for this examination in Epic: Outside Radiology Order; CALCULUS OF KIDNEY TECHNIQUE: Multidetector-row CT of the abdomen and pelvis was performed without intravenous contrast using tailored dose modulation techniques. Images were reconstructed in the axial, coronal, and sagittal planes. COMPARISON: MRCP 11/12/2021 FINDINGS: Lower Chest: Normal. No consolidation or pleural effusions. Liver: No suspicious focal liver lesion. Biliary: No biliary ductal dilatation. Spleen: Normal. No splenomegaly or focal lesions. Pancreas: 2.1 cm cystic pancreatic body lesion on 4:23 appears grossly similar to MRI from 11/12/2021, allowing for differences in technique. Adrenal Glands: Normal. No nodules. Kidneys/Ureters: No solid renal mass or hydronephrosis. Multiple hyperdense bilateral renal lesions, which based on prior imaging are almost certainly benign hemorrhagic/proteinaceous cysts; there are also scattered benign simple cysts. Few sub-2 mm nonobstructing left renal stones, as well as a likely nonobstructing 2 mm right lower pole stone. Bowel: No bowel obstruction or wall thickening. Prior distal colon resection. Peritoneum/Retroperitoneum: Normal. No masses, pneumoperitoneum, or fluid. Lymph Nodes: Normal. No lymphadenopathy. Pelvic Organs/Bladder: Normal. No mass. Vessels: No abdominal aortic aneurysm. Vascular calcification. Bones/Soft Tissues: No suspicious focal osseous lesion. Demonstrated posterior fusion at L4-L5. Grade 1 anterolisthesis of L4 on L5. Procedure Note Sushant Mckeon MD - 06/10/2023 CT ABDOMEN/PELVIS (KIDNEY STONE) WITHOUT CONTRAST Referring clinician's provided indication for this examination in Epic:Outside Radiology Order; CALCULUS OF KIDNEY TECHNIQUE: Multidetector-row CT of the abdomen and pelvis was performedwithout intravenous contrast using tailored dose modulation techniques.Images were reconstructed in the axial, coronal, and sagittal planes. COMPARISON: MRCP 11/12/2021 FINDINGS: Lower Chest: Normal. No consolidation or pleural effusions. Liver: No suspicious focal liver lesion. Biliary: No biliary ductal dilatation. Spleen: Normal. No splenomegaly or focal lesions. Pancreas: 2.1 cm cystic pancreatic body lesion on 4:23 appears grosslysimilar to MRI from 11/12/2021, allowing for differences in technique. Adrenal Glands: Normal. No nodules. Kidneys/Ureters: No solid renal mass or hydronephrosis. Multiplehyperdense bilateral renal lesions, which based on prior imaging arealmost certainly benign hemorrhagic/proteinaceous cysts; there are alsoscattered benign simple cysts. Few sub-2 mm nonobstructing left renalstones, as well as a likely nonobstructing 2 mm right lower pole stone. Bowel: No bowel obstruction or wall thickening. Prior distal colonresection. Peritoneum/Retroperitoneum: Normal. No masses, pneumoperitoneum, orfluid. Lymph Nodes: Normal. No lymphadenopathy. Pelvic Organs/Bladder: Normal. No mass. Vessels: No abdominal aortic aneurysm. Vascular calcification. Bones/Soft Tissues: No suspicious focal osseous lesion. Demonstratedposterior fusion at L4-L5. Grade 1 anterolisthesis of L4 on L5. IMPRESSION: Sub-2 mm nonobstructing bilateral renal stones. No hydronephrosis orureteral stone. Marlene Tello MD IMG CT ABD/PELVIS Final Re sult documented in this encounter Visit Diagnoses Diagnosis Calculus of kidney- Primary Calculus of kidney documented in this encounter Care Teams Chief Of Harbor Patrol Relationship Specialty Start Date End Date Lakshmi Louis NP PCP - General Family Medicine 11/21/21 08/15/23 Unknown, Unknown, PCP - General 08/16/23 08/22/23 Gregoria Landis DO [address] [place] [address] [email or web address] PCP - General Family Medicine 08/23/23 documented as of this encounter Additional Source Comments The information contained in this document represents components of the legal health record. It is not the complete legal health record.[facility]
--- OUTSIDE RECORDS SUMMARY | 2025-01-19 09:26 | XMS_ITS | Encounter Summary ---
Author Organization [facility] Address [address] [facility] [address] [place] [address] Phone Care Team Providers Care Host/Hostess Restaurant Name Role Phone Lakshmi Louis NP Primary Care Provider [phone] Unknown, Unknown Primary Care Provider Gregoria Sherman DO Primary Care Provider Encounter Details Date Type Department Care Team (Late st Contact Info) Description 05/17/2023 Procedure Pass [facility], Ct Scan - [address] [address] Social History Tobacco Use Types Packs/Day Years [...] [facility] [address] [place] [address] Unknown, Unknown, Antonio Rosenthal MD [address] [address] [email or web address] documented as of this encounter Visit Diagnoses Not on filedocumented in this encounter Care Teams Host/Hostess Restaurant Relationship Specialty Start Date End Date Lakshmi Louis NP PCP - General Family Medicine 11/21/21 08/15/23 Unknown, Unknown, PCP - General 08/16/23 08/22/23 Gregoria Landis DO [address] [place] [id number] PCP - General Family Medicine 08/23/23 documented as of this encounter Additional Source Comments The information contained in this document represents components of the legal health record. It is not the complete legal health record.[facility]
--- OUTSIDE RECORDS SUMMARY | 2025-01-19 09:26 | XMS_ITS | Clinical Summary ---
Author Organization [facility] Address [address] [id number] Care Team Providers Care Hand Tufter Name Role Phone Gregoria Landis MD Primary Care Provider [phone] Allergies Active Allergy Reactions Criticality Noted Date [...] Multidrug resistant organisms ESBL 12/31/2016 12/31/2016 Insurance [facility] MEDIC[facility] Care Teams Hand Tufter Relationship Specialty Start Date End Date Gregoria Landis MD [address] [place] [address] [id number] PCP - General 11/09/23
--- OUTSIDE RECORDS SUMMARY | 2025-01-19 09:27 | XMS_ITS | Encounter Summary ---
Author Organization [facility] Address [address] [facility] [address] [place] [address] Phone Care Team Providers Care Start Up Specialist Name Role Phone Marcos Johnson MD Primary Care Prov ider Lakshmi Louis NP Primary Care Provider [phone] Lakshmi Louis NP Primary Care Provider [phone] Unknown, Unknown Primary Care Provider Gregoria Sherman DO Primary Care Provider [phone] Reason for Referral * Physical Therapy (Routine) - Closed Specialty Diagnoses / Procedures Referred By Kitty garcia Referred To Contact Physical Therapy Diagnoses low back pain Procedures new patient evaluation System, Provider Not In, PhD [id number] [place] [address] 30 [place] [address] Phone: tel: Referral ID Status Reason Start Date Expiration Date Visits Re quested Visits Authorized [id number] Closed 03/02/2017 04/01/2018 99 [phone] Encounter Details Date Type Department Care Team (Latest Contact Info) Description 03/02/2017 Transcribe Orders [facility] [address] [place] [address] Lakshmi Louis, FENCE SETTER [address] [place] [address] Encounter for rehabilitation (Primary Dx) Social History [...] Description 02/11/2025 11:00 AM EST Office Visit [facility] 10 [place] [address] Unknown, Unknown, Antonio Rosenthal MD [address] [address] documented as of this encounter Procedures Procedure Name Priority Date/Time Associated Diagnosis Comments AMB REFERRAL TO [facility] PHYSICAL THERAPY Routine 03/04/2017 5:49 PM EST Encounter for rehabilitation documented in this encounter Results * Ambulatory referral to [facility] Physical Therapy (03/04/2017 5:49 PM EST) us Provider Not In System PhD AMB [facility] REFERRALS Fin al Result documented in this encounter Visit Diagnoses Diagnosis Encounter for rehabilitation- Primary documented in this encounter Additional Health Concerns Infection Onset Date Last Indicated Resolved Time CoV-Risk 01/28/2020 01/29/2020 02/11/2020 1:24 AM EST documented as of this encounter Care Teams Start Up Specialist Relationship Specialty Start Date End Date Marcos Johnson MD PCP - General 01/24/17 Lakshim Louis FENCE SETTER PCP - General Family Medicine 02/18/19 11/20/21 Lakshmi Louis NP PCP - General Family Medicine 11/21/21 08/15/23 Unknown, Unknown, PCP - General 08/16/23 08/22/23 Gregoria Landis DO [address] [place] [address] [email or web address] PCP - General Family Medicine 08/23/23 documented as of this encounter Additional Source Comments The information contained in this document represents components of the legal health record. It is not the complete legal health record.[facility]
--- OUTSIDE RECORDS SUMMARY | 2025-01-19 09:27 | XMS_ITS | Encounter Summary ---
Author Organization [facility] Address [address] [place] [address] Phone Care Team Providers Care Donkey Doctor Name Role Phone Marcos Johnson MD Primary Care Prov ider Lakshmi Louis TRAUMA NURSE Primary Care Provider [phone] Lakshmi Louis TRAUMA NURSE Primary Care Provider [phone] Unknown, Unknown Primary Care Provider Gregoria Sherman DO Primary Care Provider Encounter Details Date Type Department Care Team (Late st Contact Info) Description 09/12/2018 Procedure Pass [facility], [address] [address] Social History Tobacco Use Types Packs/Day Years [...] Office Visit [facility] [address] [place] [address] Unknown, Unknown, Antonio Rosenthal MD [address] [address] [email or web address] documented as of this encounter Visit Diagnoses Not on filedocumented in this encounter Additional Health Concerns Infection Onset Date Last Indicated Resolved Time CoV-Risk 01/28/2020 01/29/2020 02/11/2020 1:24 AM EST documented as of this encounter Care Teams Donkey Doctor Relationship Specialty Start Date End Date Marcos Johnson MD PCP - General 01/24/17 Lakshmi Louis TRAUMA NURSE PCP - General Family Medicine 02/18/19 11/20/21 Lakshmi Louis TRAUMA NURSE PCP - General Family Medicine 11/21/21 08/15/23 Unknown, Unknown, PCP - General 08/16/23 08/22/23 Gregoria Landis DO [address] [place] [address] PCP - General Family Medicine 08/23/23 documented as of this encounter Additional Source Comments The information contained in this document represents components of the legal health record. It is not the complete legal health record.[facility]
--- OUTSIDE RECORDS SUMMARY | 2025-01-19 09:28 | XMS_ITS | Encounter Summary ---
Author Organization [facility] Address [address] [place] [address] [place] [address] Phone Care Team Providers Care Nutrition And Dietetics Instructor Name Role Phone Marcos Johnson MD Primary Care Prov ider Lakshmi Louis LEAD HOUSEKEEPER Primary Care Provider [phone] Lakshmi Louis LEAD HOUSEKEEPER Primary Care Provider [phone] Unknown, Unknown Primary Care Provider Gregoria Sherman DO Primary Care Provider Encounter Details Date Type Department Care Team (Late st Contact Info) Description 06/08/2017 Ancillary Orders [facility],Outside Imaging [address] [place], [place] [id number] System, Provider Not In, PhD Partners [address] [address] Social History Tobacco Use Types Packs/Day Years [...] Visit [facility] 10 [place] [address] Unknown, Unknown, Antonio Rosenthal MD 10 [facility] [address] [place] [address] [email or web address] documented as of this encounter Results * XR Upper Extremity Outside (No Interpretation) (09/07/2015 12:30 AM EDT) Narrative SYSTEMGENERATED, DOCUMENTATION - 06/08/2017 10:31 AM EST This study is for PACS storage only and not for interpretation. us Provider Not In System PhD IMG OUTSIDE IMAGING W /OUT INTERPRETATION Final Result * XR SPINE OUTSIDE(NO INTERPRETATION) (09/07/2015 12:15 AM EDT) Narrative SYSTEMGENERATED, DOCUMENTATION - 06/08/2017 10:30 AM EST This study is for PACS storage only and not for interpretation. us Provider Not In System PhD IMG OUTSIDE IMAGING W /OUT INTERPRETATION Final Result * XR SPINE OUTSIDE(NO INTERPRETATION) (09/07/2015 12:00 AM EDT) Narrative SYSTEMGENERATED, DOCUMENTATION - 06/08/2017 10:29 AM EST This study is for PACS storage only and not for interpretation. us Provider Not In System PhD IMG OUTSIDE IMAGING W /OUT INTERPRETATION Final Result * XR Upper Extremity Outside (No Interpretation) (05/05/2015 12:15 AM EST) Narrative SYSTEMGENERATED, DOCUMENTATION - 06/08/2017 10:28 AM EST This study is for PACS storage only and not for interpretation. us Provider Not In System PhD IMG OUTSIDE IMAGING W /OUT INTERPRETATION Final Result * XR Lower Extremity Outside (No Interpretation) [...] documented as of this encounter Care Teams Nutrition And Dietetics Instructor Relationship Specialty Start Date End Date Marcos Johnson MD PCP - General 01/24/17 Lakshmi Louis, LEAD HOUSEKEEPER PCP - General Family Medicine 02/18/19 11/20/21 Lakshmi Louis, LEAD HOUSEKEEPER PCP - General Family Medicine 11/21/21 08/15/23 Unknown, Unknown, PCP - General 08/16/23 08/22/23 Gregoria Landis DO [address] [place] [address] PCP - General Family Medicine 08/23/23 documented as of this encounter Additional Source Comments The information contained in this document represents components of the legal health record. It is not the complete legal health record.[facility]
--- OUTSIDE RECORDS SUMMARY | 2025-01-19 09:28 | XMS_ITS | Encounter Summary ---
Author Organization [facility] Address [address] [facility] [address] [place] [address] Phone Care Team Providers Care Supervisor Research Shop Name Role Phone Marcos Johnson MD Primary Care Prov ider Lakshmi Louis SPORTS EDITOR Primary Care Provider [phone] Lakshmi Louis SPORTS EDITOR Primary Care Provider [phone] Unknown, Unknown Primary Care Provider Gregoria Sherman DO Primary Care Provider Encounter Details Date Type Department Care Team (Late st Contact Info) Description 11/11/2018 Procedure Pass [facility] [address] [place] [address] Social History Tobacco Use Types Packs/Day Years [...] Visit [facility] 10 [place] [address] Unknown, Unknown, Antonio Rosenthal MD [address] [address] [email or web address] documented as of this encounter Visit Diagnoses Not on filedocumented in this encounter Additional Health Concerns Infection Onset Date Last Indicated Resolved Time CoV-Risk 01/28/2020 01/29/2020 02/11/2020 1:24 AM EST documented as of this encounter Care Teams Supervisor Research Shop Relationship Specialty Start Date End Date Marcos Johnson MD PCP - General 01/24/17 Lakshmi Louis, SPORTS EDITOR PCP - General Family Medicine 02/18/19 11/20/21 Lakshmi Louis SPORTS EDITOR PCP - General Family Medicine 11/21/21 08/15/23 Unknown, Unknown, PCP - General 08/16/23 08/22/23 Gregoria Landis DO [address] [place] [address] PCP - General Family Medicine 08/23/23 documented as of this encounter Additional Source Comments The information contained in this document represents components of the legal health record. It is not the complete legal health record.[facility]
--- OUTSIDE RECORDS SUMMARY | 2025-01-19 09:28 | XMS_ITS | Encounter Summary ---
Author Organization [facility] Address [address] [place] [address] Phone Care Team Providers Care Boat Canvas Installer Name Role Phone Marcos Johnson MD Primary Care Prov ider Lakshmi Louis CREDENTIALER Primary Care Provider [phone] Lakshmi Louis CREDENTIALER Primary Care Provider [phone] Unknown, Unknown Primary Care Provider Gregoria Sherman DO Primary Care Provider Encounter Details Date Type Department Care Team (Late st Contact Info) Description 08/28/2017 Procedure Pass [facility], [address] [address] Social History Tobacco Use Types Packs/Day Years [...] Description 02/11/2025 11:00 AM EST Office Visit [facility] 10 [place] [address] Unknown, Unknown, Antonio Rosenthal MD [address] [address] [email or web address] documented as of this encounter Visit Diagnoses Not on filedocumented in this encounter Additional Health Concerns Infection Onset Date Last Indicated Resolved Time CoV-Risk 01/28/2020 01/29/2020 02/11/2020 1:24 AM EST documented as of this encounter Care Teams Boat Canvas Installer Relationship Specialty Start Date End Date Marcos Johnson MD PCP - General 01/24/17 Lakshmi Louis CREDENTIALER PCP - General Family Medicine 02/18/19 11/20/21 Lakshmi Louis CREDENTIALER PCP - General Family Medicine 11/21/21 08/15/23 Unknown, Unknown, PCP - General 08/16/23 08/22/23 Gregoria Landis DO [address] [place] [address] PCP - General Family Medicine 08/23/23 documented as of this encounter Additional Source Comments The information contained in this document represents components of the legal health record. It is not the complete legal health record.[facility]
--- OUTSIDE RECORDS SUMMARY | 2025-01-19 09:28 | XMS_ITS | Encounter Summary ---
Author Organization [facility] Address [address] [place] [address] [place] [address] Phone Care Team Providers Care Timber Hewer Name Role Phone Marcos Johnson MD Primary Care Prov ider Lakshmi Louis AUTOMOTIVE ENGINEER Primary Care Provider [phone] Lakshmi Louis AUTOMOTIVE ENGINEER Primary Care Provider [phone] Unknown, Unknown Primary Care Provider Gregoria Sherman DO Primary Care Provider [phone] Encounter Details Date Type Department Care Team (Late st Contact Info) Description 09/05/2017 Procedure Pass [facility] Admitting [facility] Department [address] [place] [address] Social History Tobacco Use Types Packs/Day Years [...] Description 02/11/2025 11:00 AM EST Office Visit [facility] [address] [place] [address] Unknown, Unknown, Antonio Rosenthal MD [address] [address] [email or web address] documented as of this encounter Visit Diagnoses Not on filedocumented in this encounter Additional Health Concerns Infection Onset Date Last Indicated Resolved Time CoV-Risk 01/28/2020 01/29/2020 02/11/2020 1:24 AM EST documented as of this encounter Care Teams Timber Hewer Relationship Specialty Start Date End Date Marcos Johnson MD PCP - General 01/24/17 Lakshmi Louis AUTOMOTIVE ENGINEER PCP - General Family Medicine 02/18/19 11/20/21 Lakshmi Louis AUTOMOTIVE ENGINEER PCP - General Family Medicine 11/21/21 08/15/23 Unknown, Unknown, PCP - General 08/16/23 08/22/23 Gregoria Landis DO [address] [place] [address] PCP - General Family Medicine 08/23/23 documented as of this encounter Additional Source Comments The information contained in this document represents components of the legal health record. It is not the complete legal health record.[facility]
--- OUTSIDE RECORDS SUMMARY | 2025-01-19 09:28 | XMS_ITS | Encounter Summary ---
Author Organization [facility] Address [address] [facility] [address] [place] [address] Phone Care Team Providers Care Earth Science Technician Name Role Phone Marcos Johnson MD Primary Care Prov ider Lakshmi Louis TELEGRAPH MESSENGER Primary Care Provider [phone] Lakshmi Louis TELEGRAPH MESSENGER Primary Care Provider [phone] Unknown, Unknown Primary Care Provider Gregoria Sherman DO Primary Care Provider Encounter Details Date Type Department Care Team (Late st Contact Info) Description 11/11/2018 Procedure Pass [facility] [address] [place] [address] Social History Tobacco Use Types Packs/Day Years [...] Description 02/11/2025 11:00 AM EST Office Visit [facility] 10 [place] [address] Unknown, Unknown, Antonio Rosenthal MD [address] [address] [email or web address] documented as of this encounter Visit Diagnoses Not on filedocumented in this encounter Additional Health Concerns Infection Onset Date Last Indicated Resolved Time CoV-Risk 01/28/2020 01/29/2020 02/11/2020 1:24 AM EST documented as of this encounter Care Teams Earth Science Technician Relationship Specialty Start Date End Date Marcos Johnson MD PCP - General 01/24/17 Lakshmi Louis, TELEGRAPH MESSENGER PCP - General Family Medicine 02/18/19 11/20/21 Lakshmi Louis TELEGRAPH MESSENGER PCP - General Family Medicine 11/21/21 08/15/23 Unknown, Unknown, PCP - General 08/16/23 08/22/23 Gregoria Landis DO [address] [place] [address] PCP - General Family Medicine 08/23/23 documented as of this encounter Additional Source Comments The information contained in this document represents components of the legal health record. It is not the complete legal health record.[facility]
--- OUTSIDE RECORDS SUMMARY | 2025-01-19 09:28 | XMS_ITS | Encounter Summary ---
Author Organization [facility] Address [address] [facility] [address] [place] [address] Phone Care Team Providers Care Coke Wheeler Name Role Phone Marcos Johnson MD Primary Care Prov ider Lakshmi Louis GREEN END DEPARTMENT SUPERVISOR Primary Care Provider [phone] Lakshmi Louis GREEN END DEPARTMENT SUPERVISOR Primary Care Provider [phone] Unknown, Unknown Primary Care Provider Gregoria Sherman DO Primary Care Provider Reason for Referral * MRI/CAT Scan - Closed Specialty Diagnoses / Procedures Referred By Kitty garcia Referred To Contact Radiology Diagnoses Neck pain Procedures MRI Cervical Spine John Martínez MD [address] [place] [address] Dr MOISE [address] [place] [address] Phone: tel: fax: Referral ID Status Reason Start Date Expiration Date Visits Re quested Visits Authorized [id number] Closed 09/12/2018 09/12/2019 1 1 Encounter Details Date Type Department Care Team (Late st Contact Info) Description 09/12/2018 Ancillary Orders Virtual Department [address] [place] [address] John Martínez MD [address] [place] [address] [place] [address] Neck pain Social History Tobacco Use Types Packs/Day Years [...] [facility] [address] [place] [address] Unknown, Unknown, Antonio Rosenthal MD [address] [address] [email or web address] documented as of this encounter Results * MRI CERVICAL SPINE (BONE) WITHOUT CONTRAST (09/25/2018 7:35 AM EDT) Anatomical Region Laterality Modality C-spine Magnetic Resonan ce 09/25/2018 9:30 AM EDT Impressions 09/25/2018 9:41 AM EDT Moderately large left paramedian and foraminal disc protrusion at the C5-6 level impinging upon the cord and compromising the lateral recess. Degenerative disc disease and disc spur complex causing borderline C6-7 canal stenosis. Moderate C3-4 and C4-5 disc bulges. POS - [id number] Narrative 09/25/2018 9:41 AM EDT COMPARISON:03/21/2018 radiographs TECHNIQUE: Exam performed on a 1.5 Jeni high-field MRI scanner. Sagittal T1, T2 and STIR, axial T2* gradient echo and 3-D bright fluid sequences were obtained. FINDINGS: Study is slightly limited due to motion artifact. Degenerative changes are present at the atlantodens articulation. C2-3: No focal disc protrusion, central canal stenosis, or significant neural foraminal compromise. C3-4: Mild to moderate broad-based disc bulge without focal disc protrusion or central canal stenosis. Minimal right neural foraminal narrowing due to uncovertebral spurring. C4-5: Moderate broad-based disc bulge without focal disc protrusion. No significant central canal stenosis. Uncovertebral spurring and facet osteoarthropathy appears to cause an element of left neural foraminal narrowing. Right neural foramen grossly patent. C5-6: There is a moderately large left paramedian disc protrusion extending into the lateral recess and along the left lateral aspect of the C5 body with compromise of the neural foramen. There is equivocal remodeling of the inferolateral C5 endplate. There is moderate cord impingement with the AP dimensions of the canal narrowed to approximately 6 mm. Right neural foramen is patent. C6-7: There is disc space narrowing, disc desiccation, and posterior spondylosis. There may be minimal superimposed hypointense disc bulge. The disc spur complex contacts the ventral margin of the cord and narrows the AP dimensions of the canal to approximately 10 mm. There is mild left neural foraminal narrowing due to uncovertebral spurring. Only minimal right neural foraminal narrowing present. C7-T1: No focal disc protrusion, central canal stenosis, or significant neural foraminal compromise demonstrated. T1-2: No focal disc protrusion, central canal stenosis, or gross neural foraminal compromise. On the sagittal sequences no focal disc protrusion or canal stenosis are suggested at the T2-3 or T3-4 levels. There is moderate discogenic marrow edema in the C5 and C6 vertebral bodies. No other significant abnormality of vertebral body marrow signal noted. No gross cord lesion apparent. No paraspinal soft tissue mass seen. Prevertebral soft tissues are not thickened. Procedure Note Edwardo Deshpande MD - 09/25/2018 COMPARISON:03/21/2018 radiographs TECHNIQUE: Exam performed on a 1.5 Jeni high-field MRI scanner. SagittalT1, T2 and STIR, axial T2* gradient echo and 3-D bright fluid sequenceswere obtained. FINDINGS: Study is slightly limited due to motion artifact. Degenerative changesare present at the atlantodens articulation. C2-3: No focal disc protrusion, central canal stenosis, or significantneural foraminal compromise. C3-4: Mild to moderate broad-based disc bulge without focal discprotrusion or central canal stenosis. Minimal right neural foraminalnarrowing due to uncovertebral spurring. C4-5: Moderate broad-based disc bulge without focal disc protrusion. Nosignificant central canal stenosis. Uncovertebral spurring and facetosteoarthropathy appears to cause an element of left neural foraminalnarrowing. Right neural foramen grossly patent. C5-6: There is a moderately large left paramedian disc protrusionextending into the lateral recess and along the left lateral aspect of theC5 body with compromise of the neural foramen. There is equivocalremodeling of the inferolateral C5 endplate. There is moderate cordimpingement with the AP dimensions of the canal narrowed to approximately6 mm. Right neural foramen is patent. C6-7: There is disc space narrowing, disc desiccation, and posteriorspondylosis. There may be minimal superimposed hypointense disc bulge.The disc spur complex contacts the ventral margin of the cord and narrowsthe AP dimensions of the canal to approximately 10 mm. There is mild leftneural foraminal narrowing due to uncovertebral spurring. Only minimalright neural foraminal narrowing present. C7-T1: No focal disc protrusion, central canal stenosis, or significantneural foraminal compromise demonstrated. T1-2: No focal disc protrusion, central canal stenosis, or gross neuralforaminal compromise. On the sagittal sequences no focal disc protrusion or canal stenosis aresuggested at the T2-3 or T3-4 levels. There is moderate discogenic marrow edema in the C5 and C6 vertebralbodies. No other significant abnormality of vertebral body marrow signalnoted. No gross cord lesion apparent. No paraspinal soft tissue mass seen. Prevertebral soft tissues are notthickened. IMPRESSION: Moderately large left paramedian and foraminal disc protrusion at the C5-6level impinging upon the cord and compromising the lateral recess. Degenerative disc disease and disc spur complex causing borderline C6-7canal stenosis. Moderate C3-4 and C4-5 disc bulges. POS - [id number] John Martínez MD IMG MR XSPECIALTY Final Result documented in this encounter Visit Diagnoses Diagnosis Neck pain Cervicalgia Neck pain Cervicalgia documented in this encounter Additional Health Concerns Infection Onset Date Last Indicated Resolved Time CoV-Risk 01/28/2020 01/29/2020 02/11/2020 1:24 AM EST documented as of this encounter Care Teams Coke Wheeler Relationship Specialty Start Date End Date Marcos Johnson MD PCP - General 01/24/17 Lakshmi Louis, GREEN END DEPARTMENT SUPERVISOR PCP - General Family Medicine 02/18/19 11/20/21 Lakshmi Louis NP PCP - General Family Medicine 11/21/21 08/15/23 Unknown, Dylan, PCP - General 08/16/23 08/22/23 Gregoria Landis DO [address] [place] [address] PCP - General Family Medicine 08/23/23 documented as of this encounter Additional Source Comments The information contained in this document represents components of the legal health record. It is not the complete legal health record.[facility]
--- OUTSIDE RECORDS SUMMARY | 2025-01-19 09:29 | XMS_ITS | Encounter Summary ---
Author Organization [facility] Address [address] [place] [address] Phone Care Team Providers Care Yield Improvement Engineer Name Role Phone Marcos Johnson MD Primary Care Prov ider Lakshmi Louis DRIVER GUIDE Primary Care Provider [phone] Lakshmi Louis DRIVER GUIDE Primary Care Provider [phone] Unknown, Unknown Primary Care Provider Gregoria Sherman DO Primary Care Provider Encounter Details Date Type Department Care Team (Late st Contact Info) Description 09/13/2017 Procedure Pass [facility], Ct Scan - [address] [address] Social History Tobacco Use Types Packs/Day Years [...] Office Visit [facility] 10 [place] [address] Unknown, Unknown, Antonio Rosenthal MD [address] [address] [email or web address] documented as of this encounter Visit Diagnoses Not on filedocumented in this encounter Additional Health Concerns Infection Onset Date Last Indicated Resolved Time CoV-Risk 01/28/2020 01/29/2020 02/11/2020 1:24 AM EST documented as of this encounter Care Teams Yield Improvement Engineer Relationship Specialty Start Date End Date Marcos Johnson MD PCP - General 01/24/17 Lakshmi Louis DRIVER GUIDE PCP - General Family Medicine 02/18/19 11/20/21 Lakshmi Louis DRIVER GUIDE PCP - General Family Medicine 11/21/21 08/15/23 Unknown, Unknown, PCP - General 08/16/23 08/22/23 Gregoria Landis DO [address] [place] [address] PCP - General Family Medicine 08/23/23 documented as of this encounter Additional Source Comments The information contained in this document represents components of the legal health record. It is not the complete legal health record.[facility]
--- OUTSIDE RECORDS SUMMARY | 2025-01-19 09:29 | XMS_ITS | Encounter Summary ---
Author Organization [facility] Address [address] [facility] [address] [place] [address] Phone Care Team Providers Care Janitorial Account Manager Name Role Phone Marcos Johnson MD Primary Care Prov ider Lakshmi Louis PRIVATE INQUIRY AGENT Primary Care Provider [phone] Lakshmi Louis PRIVATE INQUIRY AGENT Primary Care Provider [phone] Unknown, Unknown Primary Care Provider Gregoria Sherman DO Primary Care Provider Encounter Details Date Type Department Care Team (Late st Contact Info) Description 09/12/2017 Ancillary Orders Virtual Department [address] [place] [address] Marlene Tello MD [address] [place] [address] [email or web address] Social History Tobacco Use Types Packs/Day Years [...] Description 02/11/2025 11:00 AM EST Office Visit [facility] 10 [place] [address] Unknown, Unknown, Antonio Rosenthal MD [address] [address] documented as of this encounter Visit Diagnoses Not on filedocumented in this encounter Additional Health Concerns Infection Onset Date Last Indicated Resolved Time CoV-Risk 01/28/2020 01/29/2020 02/11/2020 1:24 AM EST documented as of this encounter Care Teams Janitorial Account Manager Relationship Specialty Start Date End Date Marcos Johnson MD PCP - General 01/24/17 Lakshmi Louis PRIVATE INQUIRY AGENT PCP - General Family Medicine 02/18/19 11/20/21 Lakshmi Louis PRIVATE INQUIRY AGENT PCP - General Family Medicine 11/21/21 08/15/23 Unknown, Dylan, PCP - General 08/16/23 08/22/23 Gregoria Landis DO [address] [place] [address] PCP - General Family Medicine 08/23/23 documented as of this encounter Additional Source Comments The information contained in this document represents components of the legal health record. It is not the complete legal health record.[facility]
--- OUTSIDE RECORDS SUMMARY | 2025-01-19 09:29 | XMS_ITS | Encounter Summary ---
Author Organization [facility] Address [address] [facility] [address] [place] [address] Phone Care Team Providers Care Solar Designer Name Role Phone Landis Gregoria Lynn DO Primary Care Provider [phone] Encounter Details Date Type Department Care Team (Late st Contact Info) Description 05/27/2024 Procedure Pass [facility] Endoscopy Admitting Dept Virtual Department [address] [place] [address] Social History Tobacco Use Types Packs/Day Years [...] Upcoming Encounters Date Type Department Care Team ([facility] Contact Info) Description 02/11/2025 11:00 AM EST Office Visit [facility] [address] [place] [address] Unknown, Unknown, Antonio Rosenthal MD [address] [place] [address] documented as of this encounter Visit Diagnoses Not on filedocumented in this encounter Care Teams Solar Designer Relationship Specialty Start Date End Date Gregoria Landis DO [address] [place] [address] [email or web address] PCP - General Family Medicine 08/23/23 documented as of this encounter Additional Source Comments The information contained in this document represents components of the legal health record. It is not the complete legal health record.[facility]
== END 2025-01-19 09:54 | disposition home or self-care (01) ==
LOC: HO.PMC 08:38
PROVIDERS: PCP Family Medicine; Referring Provider Physician Assistant; Visit Provider Internal Medicine
DX: M48.02 Spinal stenosis, cervical region (principal); M96.1 Postlaminectomy syndrome, not elsewhere classified
CPT/HCPCS: 99203

== ENCOUNTER → 2025-01-19 08:37 | Outpatient (BNVA) | payer MEDICARE, OTHER, SELFPAY | PROVIDERS: PCP Family Medicine; Referring Provider Physician Assistant; Visit Provider Internal Medicine | DX: M48.02 Spinal stenosis, cervical region (principal); M96.1 Postlaminectomy syndrome, not elsewhere classified; M81.0 Age-related osteoporosis without current pathological fracture; M75.102 Unspecified rotator cuff tear or rupture of left shoulder, not specified as traumatic; M54.50 Low back pain, unspecified; G89.29 Other chronic pain; E11.9 Type 2 diabetes mellitus without complications; Z86.19 Personal history of other infectious and parasitic diseases | CPT/HCPCS: 99202 ==

== ENCOUNTER 2025-03-20 07:31 | Outpatient (RCR) | payer MEDICARE, OTHER, SELFPAY ==
--- NOTE | 2025-01-26 06:23 | MHC.PT.EP ---
[facility] [place] Office [place] Office [place] Office [address] Arturo Little [address] [phone] F: [phone] F: [phone] F: [phone] F: [phone] Physical Therapy Plan of Care Date of Evaluation: 01/08/25 Date of Surgery: Diagnosis: Back pain, Lumbar DDD, h/o lumbar fusion L 4-5 Assessment: Pt is a 79 y/o female with PMHx of vertigo, lyme's disease, DM II, OA, HTN, asthma, colorectal CA with colon removal 2011, RTC repair, R knee surgeries , referred to PT for eval and treat of Back pain, Lumbar DDD, with h/o lumbar fusion L 4-5 who who's condition is resulting in decreased tolerance for walking, standing and sitting, as well as performing heavy HH chores and disturbed sleep secondary to long Hx of LBP with fusion, decreased trunk ROM and strength, decreased hip strength, increased posterior LE tissue tension, decreased posture and degeneration noted on imaging. Pt is deemed an appropriate candidate to receive skilled PT services to address their physical impairments in order to improve their functional ability. Frequency and Duration: The patient will be seen 2 x / wk x 4 wks. Short Term Goals: Initiate home program. Improve baseline pain to at most 4-7/10; initial: 7-10/10. Parking Analyst Goals: I with home program. Pt will improve SPADI outcome measure by at least 13 points. Pt will be able to stand > 30 min. Pt will report at most 1/3 disturbed night's sleep d/t pain; initial: 1/2 disturbed. Treatment Plan: Modalities to reduce pain, spasms and effusion. Manual therapy to restore motion and function. Therapeutic exercise to improve strength and flexibility. Neuromuscular re-education for posture and balance. Therapeutic activities to return to functional activities of daily living. Electronically signed by: Yovanny Leija PT. Please sign and return to therapist. Thank you for your referral.
--- NOTE | 2025-03-20 16:45 | MHC.PT.DC ---
[facility] [place] Office [place] Office [place] Office [address] Arturo Little [address] [phone] F: [phone] F: [phone] F: [phone] F: [phone] Physical Therapy Discharge Report Diagnosis: Back pain, Lumbar DDD, h/o lumbar fusion L 4-5 Date of Surgery: Date of Evaluation: 01/08/25 Date of Discharge: 03/20/25 Treatments to Date: 12 Cancellations to Date: No Shows to Date: Discharge Status: Improved Function Independent with HEP Recommend MD Follow-up Discharge Summary: Nelida has been an active participant in her therapy in the clinic with inconsistent home program carry over who has made some improvement in her pain, has become I with a program she feels comfortable continuing at home. unfortunately she did not meet all of her therapeutic goals, she's has complication d/t other pains and issues along the way which has affected therapy for her spine. Electronically signed by: Yovanny Leija PT. Please sign and return to therapist. Thank you for your referral.
== END 2025-03-20 16:45 | disposition home or self-care (01) ==
LOC: HO.PT 07:31
PROVIDERS: PCP Family Medicine; Visit Provider Physician Assistant
DX: M51.360 Other intervertebral disc degeneration, lumbar region with discogenic back pain only (principal); Z98.1 Arthrodesis status
CPT/HCPCS: 97014; 97110; 97161